=== PATIENT | male | born 1950 | race Hispanic/Latino ===

== ENCOUNTER 2018-02-04 10:48 | Inpatient (IN) | payer MEDICARE, MEDICAID ==
[2018-02-04 10:49] VITALS: BMI 31.6
[2018-02-04 11:37] LABS: BASO # 0.1 K/uL (0.0-0.2); BASO % 0.7 % (0.0-2.0); EOS # 0.3 K/uL (0.0-0.7); EOS % 2.6 % (0.0-4.0); HEMOGLOBIN 13.5 g/dL (12.0-18.0); LYMPH # 1.2 K/uL (1.0-4.3); LYMPH % 10.8 % (20.0-40.0); MEAN CELL VOLUME 90.1 fL (80.0-94.0); MEAN CORPUSCULAR HEMOGLOBIN 30.3 pg (27.0-31.0); MEAN CORPUSCULAR HGB CONC 33.6 g/dL (33.0-37.0); MEAN PLATELET VOLUME 9.6 fL (7.2-11.7); MONO # 0.7 K/uL (0.0-0.8); MONO % 6.1 % (0.0-10.0); NEUT # 8.9 K/uL (1.8-7.0); NEUT % 79.8 % (50.0-75.0); NRBC % 0.2 % (0.0-2.0); RBC 4.46 Mil/uL (4.40-5.90); RED CELL DISTRIBUTION WIDTH 13.9 % (11.5-14.5); WHITE BLOOD COUNT 11.1 K/uL (4.8-10.8)
[2018-02-04 11:45] LABS: INR 1.1; PROTHROMBIN TIME 11.6 SECONDS (9.7-12.2)
[2018-02-04 11:55] LABS: BLOOD UREA NITROGEN 53 mg/dL (9-20); GFR AFRICAN-AMERICAN > 60; GFR NON-AFRICAN AMERICAN 51
[2018-02-04 11:56] LABS: ALB/GLOB RATIO 1.1 (1.0-2.1); ALBUMIN 4.1 g/dL (3.5-5.0); ALT/SGPT 92 U/L (21-72); AST/SGOT 73 U/L (17-59); CALCIUM 9.6 mg/dl (8.6-10.4)
[2018-02-04] MEDS ORDERED: Sodium Chloride 0.9% 1,000 ML IV STA (11:56)
--- NOTE | 2018-02-04 11:57 | CT ---
PROCEDURE: CT HEAD WITHOUT CONTRAST. HISTORY: AMS/Confusion COMPARISON: None available. TECHNIQUE: Axial computed tomography images were obtained through the head/brain without intravenous contrast. Radiation dose: Total exam DLP = 1080.72 mGy-cm. This CT exam was performed using one or more of the following dose reduction techniques: Automated exposure control, adjustment of the mA and/or kV according to patient size, and/or use of iterative reconstruction technique. FINDINGS: HEMORRHAGE: No intracranial hemorrhage. BRAIN: Good corticomedullary differentiation is seen. Diffuse expansion of the ventriculosulcal and cisternal spaces is appreciated with white matter lucency compatible with diffuse cerebral atrophy and chronic microangiopathy. No suspicious extra-axial fluid collection is identified and the midline brain anatomy appears grossly nonfocal as imaged. There is no mass effect throughout. VENTRICLES: Unremarkable. No hydrocephalus. CALVARIUM: Unremarkable. PARANASAL SINUSES: Prominent right maxillary sinusitis. MASTOID AIR CELLS: Unremarkable as visualized. No inflammatory changes. OTHER FINDINGS: None. IMPRESSION: Mild age related neuro degenerative changes are identified without acute intracranial findings by standard CT criteria. Follow-up MRI may be performed if clinically warranted. Incidental prominent right maxillary sinus disease.
[2018-02-04] MEDS ORDERED: Sodium Chloride 0.9% 1,000 ML ONE ×2 (12:03→14:23)
[2018-02-04 12:12] LABS: FREE T4 1.18 ng/dL (0.78-2.19)
--- NOTE | 2018-02-04 12:52 | C.PDOC ---
Time Seen by Provider: 02/04/18 11:02 Chief Complaint (Nursing): Altered Mental Status History Per: Patient, Other (Landlord/friend) History/Exam Limitations: Clinical Condition Onset/Duration Of Symptoms: Days Onset Of Symptoms: Cannot Confirm Onset Current Symptoms Are (Timing): Worse Usual Baseline: Alert Oriented, Ambulatory Exacerbating Factor(s): Unknown Severity: Moderate Additional History Per: Prior Records Associated Symptoms: Disoriented, Confused Past Medical History Reviewed: Historical Data, Nursing Documentation, Vital Signs Vital Signs: Last Vital Signs Temp 97 F L 02/04/18 10:52 Pulse 78 02/04/18 10:52 Resp 18 02/04/18 10:52 BP 133/62 02/04/18 10:52 Pulse Ox 100 02/04/18 12:55 - Medical History PMH: Bipolar Disorder (?), Diabetes, HTN Surgical History: No Surg Hx - [facility] Procedures CLOSURE SKIN & SUBCUTANEOUS NEC (12/28/03) PSYCHIAT DRUG THERAP NEC (09/22/04) TETANUS TOXOID ADMINIST (12/28/03) Family History: States: Unknown Family Hx - Social History Hx Tobacco Use: No Hx Alcohol Use: No Hx Substance Use: No Review Of Systems Constitutional: Negative for: Fever Cardiovascular: Negative for: Chest Pain Respiratory: Negative for: Shortness of Breath Gastrointestinal: Negative for: Vomiting, Abdominal Pain Musculoskeletal: Positive for: Back Pain. Negative for: Neck Pain Skin: Negative for: Rash Neurological: Positive for: Confusion, Altered Mental Status Psych: Negative for: Suicidal ideation Physical Exam - Physical Exam Appears: Confused, Chronically Ill, Other (Tremulous) Skin: Normal Color, Warm, Dry Head: Atraumatic, Normacephalic Eye(s): bilateral: PERRL, EOMI Oral Mucosa: Dry Neck: Normal ROM, Supple Cardiovascular: Rhythm Regular Respiratory: Normal Breath Sounds, No Accessory Muscle Use Gastrointestinal/Abdominal: Soft, No Tenderness Back: No CVA Tenderness Extremity: Normal ROM, No Deformity Neurological/Psych: Slow To Respond With Command, Other (Moving all extremities , but tremulous) Disoriented To: Time ED Course And Treatment - Laboratory Results Result Diagrams: 02/04/18 11:33 02/04/18 11:33 Lab Interpretation: Abnormal Interpretation Of Abnormal: Elevated BUN ECG: Interpreted By Me, Viewed By Me ECG Rhythm: Sinus Rhythm ECG Interpretation: No Acute Changes Rate From EC O2 Sat by Pulse Oximetry: 100 Pulse Ox Interpretation: Normal - Radiology CXR: Interpreted by Me, Viewed By Me CXR Interpretation: Yes: No Acute Disease - CT Scan/US CT head Other Rad Studies (CT/US): Read By Radiologist, Radiology Report Reviewed CT/US Interpretation: IMPRESSION: Mild age related neuro degenerative changes are identified without acute intracranial findings by standard CT criteria. Follow-up MRI may be performed if clinically warranted. Incidental prominent right maxillary sinus disease. Progress - Interventions Interventions:: Observation, Intravenous fluid - Data Reviewed Data Reviewed: Lab, Diagnostic imaging, EKG, Old records - Patient Status Patient status: Partially improved - Continuity of Care Discussed patient case with:: Patient, ED Nurse, On-call PMD-pt unassigned - Patient Plan Patient Plan: Admission Disposition Discussed With : Daniela Arellano Comment: She accepted pt on hospitalist service. Doctor Will See Patient In The: Hospital Counseled Patient/Family Regarding: Studies Performed, Diagnosis - Disposition Disposition: HOSPITALIZED Disposition Time: 14:10 Condition: GUARDED - Clinical Impression Clinical Impression: Change in mental status
--- NOTE | 2018-02-04 12:59 | RAD ---
HISTORY: AMS/Confusion COMPARISON: No prior. FINDINGS: LUNGS: No active pulmonary disease. PLEURA: No significant pleural effusion identified, no pneumothorax apparent. CARDIOVASCULAR: Normal. OSSEOUS STRUCTURES: No significant abnormalities. VISUALIZED UPPER ABDOMEN: Normal. OTHER FINDINGS: None. IMPRESSION: No active disease.
[2018-02-04 13:00] LABS: SQUAMOUS EPITHIAL < 1 /hpf (0-5); URINE BILIRUBIN NEGATIVE (NEGATIVE); URINE BLOOD NEGATIVE (NEGATIVE); URINE CLARITY Clear (Clear); URINE COLOR Straw (YELLOW); URINE GLUCOSE (UA) NORMAL (Normal); URINE LEUKOCYTE ESTERASE NEG Leu/uL (Negative); URINE PROTEIN NEGATIVE (NEGATIVE); URINE UROBILINOGEN NORMAL mg/dL (0.2-1.0)
[2018-02-04 13:36] LABS: BARBITURATES, UR NEGATIVE (NEGATIVE); OPIATES, UR NEGATIVE (NEGATIVE); PHENCYCLIDINE, UR NEGATIVE (NEGATIVE)
[2018-02-04 13:43] LABS: BENZODIAZEPINES, UR POSITIVE (NEGATIVE)
[2018-02-04] MEDS ORDERED: Sodium Chloride 0.9% 1,000 ML IV ONE (13:55)
[2018-02-04] MEDS ORDERED: Sod Polystyrene Sulf 15 gm/60 ml Susp PO ONE (15:07)
[2018-02-04] MEDS ORDERED: Sodium Chloride 0.9% 1,000 ML IV SCH (15:15)
--- NOTE | 2018-02-04 15:44 | CP.PCM.HP ---
<Leonardo Gillette - Last Filed: 02/04/18 15:54> History of Present Illness - History of Present Illness History of Present Illness: This is a 67 yo male with history of bipolar disorder, DM, HTN, paranoid behavior presenting to [facility] [place] [facility] today with altered mental status. Pt was brought in by his landlord who saw him acting strangely. Pt has been falling at home and has been unable to cook for himself. Pt is poor historian and is unable to provide detailed answers to questions. Pt also has long standing tremor. He takes lithium but cannot say how much or last time refilled. He denies pain, fevers, chills, vomiting, diarrhea. He reports past hx of alcoholism but says his last drink was 10 years ago. He denies drug use. PMH: stated above PSH: denies Allergies: PCN FH: bipolar in family Home meds: glipizide, metformin, lithium, clonazepam, norvasc, lisinopril Social hx: denies smoking. past hx of alcohol abuse. denies drug use. lives alone with dog. no children. Present on Admission - Present on Admission Any Indicators Present on Admission: No History of DVT/PE: No History of Uncontrolled Diabetes: No Urinary Catheter: No Decubitus Ulcer Present: No Review of Systems - Review of Systems All systems: reviewed and no additional remarkable complaints except Review of Systems: negative except per hpi. Past Patient History - Infectious Disease Hx of Infectious Diseases: None - Tetanus Immunizations Tetanus Immunization: Unknown - Past Medical History & Family History Pertinent Family History: bipolar in family - Past Social History Smoking Status: Never Smoked Chewing Tobacco Use: No Cigar Use: No Alcohol: None Drugs: Denies Home Situation {Lives}: Alone Domestic Violence: Negative - CARDIAC Hx Hypertension: Yes - PSYCHIATRIC Hx Bipolar Disorder: Yes (?) Hx Substance Use: No - SURGICAL HISTORY Hx Surgeries: No Meds Allergies/Adverse Reactions: Allergies Allergy/AdvReac Type Severity Reaction Status Date / Time Penicillins Allergy Verified 02/04/18 10:57 Physical Exam - Constitutional Appears: Confused - Head Exam Head Exam: ATRAUMATIC, NORMAL INSPECTION, NORMOCEPHALIC - Eye Exam Eye Exam: EOMI - ENT Exam ENT Exam: Mucous Membranes Dry - Neck Exam Neck exam: Positive for: Full Rom, Normal Inspection - Respiratory Exam Respiratory Exam: NORMAL BREATHING PATTERN. absent: Respiratory Distress - Cardiovascular Exam Cardiovascular Exam: +S1, +S2 - GI/Abdominal Exam GI & Abdominal Exam: Normal Bowel Sounds, Soft. absent: Tenderness - Extremities Exam Extremities exam: Positive for: full ROM, normal inspection - Neurological Exam Neurological exam: Alert, CN II-XII Intact - Psychiatric Exam Psychiatric exam: Flat Affect - Skin Skin Exam: Dry, Intact, Normal Color, Warm Results - Vital Signs Recent Vital Signs: Last Vital Signs Temp 97.8 F 02/04/18 14:30 Pulse 70 02/04/18 14:30 Resp 18 02/04/18 14:30 BP 128/65 02/04/18 14:30 Pulse Ox 99 02/04/18 14:30 - Labs Result Diagrams: 02/04/18 11:33 02/04/18 11:33 Labs: Laboratory Results - last 24 hr 02/04/18 02/04/18 02/04/18 11:33 11:33 11:33 WBC 11.1 H RBC 4.46 Hgb 13.5 Hct 40.2 MCV 90.1 MCH 30.3 MCHC 33.6 RDW 13.9 Plt Count 197 MPV 9.6 Neut % (Auto) 79.8 H Lymph % (Auto) 10.8 L [place] % (Auto) 6.1 Eos % (Auto) 2.6 Baso % (Auto) 0.7 Neut # (Auto) 8.9 H Lymph # (Auto) 1.2 [place] # (Auto) 0.7 Eos # (Auto) 0.3 Baso # (Auto) 0.1 PT 11.6 INR 1.1 APTT 35 H Sodium 145 Potassium 5.3 H Chloride 113 H Carbon Dioxide 18 L Anion Gap 19 BUN 53 H Creatinine 1.4 Est GFR ( Amer) > 60 Est GFR (Non-Af Amer) 51 Random Glucose 111 H Calcium 9.6 Magnesium 2.9 H Total Bilirubin 0.9 AST 73 H ALT 92 H Alkaline Phosphatase 257 H Ammonia Troponin I < 0.0120 Total Protein 8.0 Albumin 4.1 Globulin 3.9 Albumin/Globulin Ratio 1.1 Free T4 TSH 3rd Generation Urine Color Urine Clarity Urine pH Ur Specific [place] Urine Protein Urine Glucose (UA) Urine Ketones Urine Blood Urine Nitrate Urine Bilirubin Urine Urobilinogen Ur Leukocyte Esterase Urine WBC (Auto) Ur Squamous Epith Cells Urine Opiates Screen Urine Methadone Screen Ur Barbiturates Screen Ur Phencyclidine Scrn Ur Amphetamines Screen U Benzodiazepines Scrn U Oth Cocaine Metabols U Cannabinoids Screen Alcohol, Quantitative < 10 02/04/18 02/04/18 02/04/18 11:33 11:34 12:40 WBC RBC Hgb Hct MCV MCH MCHC RDW Plt Count MPV Neut % (Auto) Lymph % (Auto) [place] % (Auto) Eos % (Auto) Baso % (Auto) Neut # (Auto) Lymph # (Auto) [place] # (Auto) Eos # (Auto) Baso # (Auto) PT INR APTT Sodium Potassium Chloride Carbon Dioxide Anion Gap BUN Creatinine Est GFR ( Amer) Est GFR (Non-Af Amer) Random Glucose Calcium Magnesium Total Bilirubin AST ALT Alkaline Phosphatase Ammonia 19 Troponin I Total Protein Albumin Globulin Albumin/Globulin Ratio Free T4 1.18 TSH 3rd Generation 0.37 L Urine Color Straw Urine Clarity Clear Urine pH 6.0 Ur Specific [place] 1.011 Urine Protein Negative Urine Glucose (UA) Normal Urine Ketones Negative Urine Blood Negative Urine Nitrate Negative Urine Bilirubin Negative Urine Urobilinogen Normal Ur Leukocyte Esterase Neg Urine WBC (Auto) 2 Ur Squamous Epith Cells < 1 Urine Opiates Screen Urine Methadone Screen Ur Barbiturates Screen Ur Phencyclidine Scrn Ur Amphetamines Screen U Benzodiazepines Scrn U Oth Cocaine Metabols U Cannabinoids Screen Alcohol, Quantitative 02/04/18 12:40 WBC RBC Hgb Hct MCV MCH MCHC RDW Plt Count MPV Neut % (Auto) Lymph % (Auto) [place] % (Auto) Eos % (Auto) Baso % (Auto) Neut # (Auto) Lymph # (Auto) [place] # (Auto) Eos # (Auto) Baso # (Auto) PT INR APTT Sodium Potassium Chloride Carbon Dioxide Anion Gap BUN Creatinine Est GFR ( Amer) Est GFR (Non-Af Amer) Random Glucose Calcium Magnesium Total Bilirubin AST ALT Alkaline Phosphatase Ammonia Troponin I Total Protein Albumin Globulin Albumin/Globulin Ratio Free T4 TSH 3rd Generation Urine Color Urine Clarity Urine pH Ur Specific [place] Urine Protein Urine Glucose (UA) Urine Ketones Urine Blood Urine Nitrate Urine Bilirubin Urine Urobilinogen Ur Leukocyte Esterase Urine WBC (Auto) Ur Squamous Epith Cells Urine Opiates Screen Negative Urine Methadone Screen Negative Ur Barbiturates Screen Negative Ur Phencyclidine Scrn Negative Ur Amphetamines Screen Negative U Benzodiazepines Scrn Positive U Oth Cocaine Metabols Negative U Cannabinoids Screen Negative Alcohol, Quantitative Assessment & Plan - Assessment and Plan (Free Text) Assessment: This is a 67 yo male with 1. Altered mental status -urine drug screen positive for benzos -alcohol level negative -lithium level pending -EKG: no acute changes -CXR shows some mild cardiomegaly -neuro consult. Dr. Salvador. cricket appreciated -head CT : no acute changes -psych consult. Dr. Jamil. harley appreciated. -fall precautions 2. Hx of bipolar -restart abilify 10 mg daily -psych consult as above -hold benzo -hold lithium 2.5 diarrhea -stool culture -stool occult blood -fecal leukocytes -stool c diff 3. Hx of HTN -continue home lisinopril -continue home norvasc 4. hx of DM -ISS -accucheck -hypoglycemia protocol -hold gabapentin: Unsteady gait/falls? 5. GI/DVT ppx -lovenox 40 daily sc -protonix PO 40 mg daily discussed with Dr. Gerardo <Leela Gerardo - Last Filed: 02/05/18 16:57> Results - Vital Signs Recent Vital Signs: Last Vital Signs Temp 98.6 F 02/05/18 07:25 Pulse 74 02/05/18 16:20 Resp 20 02/05/18 07:25 BP 136/64 02/05/18 10:32 Pulse Ox 97 02/05/18 07:25 - Labs Result Diagrams: 02/05/18 07:22 02/05/18 07:22 Labs: Laboratory Results - last 24 hr 02/04/18 02/04/18 02/04/18 10:56 17:13 21:17 WBC RBC Hgb Hct MCV MCH MCHC RDW Plt Count MPV Neut % (Auto) Lymph % (Auto) [place] % (Auto) Eos % (Auto) Baso % (Auto) Neut # (Auto) Lymph # (Auto) [place] # (Auto) Eos # (Auto) Baso # (Auto) Sodium Potassium Chloride Carbon Dioxide Anion Gap BUN Creatinine Est GFR ( Amer) Est GFR (Non-Af Amer) POC Glucose (mg/dL) 179 H 76 112 H Random Glucose Hemoglobin A1c Calcium Magnesium Total Bilirubin AST ALT Alkaline Phosphatase Total Protein Albumin Globulin Albumin/Globulin Ratio [place] Hepatitis A IgM Ab Hep Bs Antigen Hep B Core IgM Ab Hepatitis C Antibody 02/05/18 02/05/18 02/05/18 06:28 07:22 07:22 WBC 8.6 RBC 4.11 L Hgb 12.5 Hct 37.0 MCV 90.1 MCH 30.4 MCHC 33.7 RDW 13.5 Plt Count 185 MPV 8.9 Neut % (Auto) 71.8 Lymph % (Auto) 15.5 L [place] % (Auto) 9.5 Eos % (Auto) 2.6 Baso % (Auto) 0.6 Neut # (Auto) 6.2 Lymph # (Auto) 1.3 [place] # (Auto) 0.8 Eos # (Auto) 0.2 Baso # (Auto) 0.0 Sodium Potassium Chloride Carbon Dioxide Anion Gap BUN Creatinine Est GFR ( Amer) Est GFR (Non-Af Amer) POC Glucose (mg/dL) 109 Random Glucose Hemoglobin A1c 6.6 H Calcium Magnesium Total Bilirubin AST ALT Alkaline Phosphatase Total Protein Albumin Globulin Albumin/Globulin Ratio [place] Hepatitis A IgM Ab Hep Bs Antigen Hep B Core IgM Ab Hepatitis C Antibody 02/05/18 02/05/18 02/05/18 07:22 07:22 07:22 WBC RBC Hgb Hct MCV MCH MCHC RDW Plt Count MPV Neut % (Auto) Lymph % (Auto) [place] % (Auto) Eos % (Auto) Baso % (Auto) Neut # (Auto) Lymph # (Auto) [place] # (Auto) Eos # (Auto) Baso # (Auto) Sodium 149 H Potassium 5.2 Chloride 118 H Carbon Dioxide 22 Anion Gap 15 BUN 28 H Creatinine 1.2 Est GFR ( Amer) > 60 Est GFR (Non-Af Amer) > 60 POC Glucose (mg/dL) Random Glucose 112 H Hemoglobin A1c Calcium 9.2 Magnesium 2.8 H Total Bilirubin 0.5 AST 80 H ALT 87 H Alkaline Phosphatase 278 H Total Protein 7.5 Albumin 3.9 Globulin 3.6 Albumin/Globulin Ratio 1.1 [place] 2.1 H* Hepatitis A IgM Ab Negative Hep Bs Antigen Negative Hep B Core IgM Ab Negative Hepatitis C Antibody Negative 02/05/18 12:26 WBC RBC Hgb Hct MCV MCH MCHC RDW Plt Count MPV Neut % (Auto) Lymph % (Auto) [place] % (Auto) Eos % (Auto) Baso % (Auto) Neut # (Auto) Lymph # (Auto) [place] # (Auto) Eos # (Auto) Baso # (Auto) Sodium Potassium Chloride Carbon Dioxide Anion Gap BUN Creatinine Est GFR ( Amer) Est GFR (Non-Af Amer) POC Glucose (mg/dL) 102 Random Glucose Hemoglobin A1c Calcium Magnesium Total Bilirubin AST ALT Alkaline Phosphatase Total Protein Albumin Globulin Albumin/Globulin Ratio [place] Hepatitis A IgM Ab Hep Bs Antigen Hep B Core IgM Ab Hepatitis C Antibody Attending/Attestation - Attestation I have personally seen and examined this patient.: Yes I have fully participated in the care of the patient.: Yes I have reviewed all pertinent clinical information: Yes Notes (Text): This is a 67 years old male with 40years history of bipolar disorder on [place] was brought in for nage in mental status by his land physician neonatology. Patient was alert and oriented on admission with tremor. He was able to answer basic questions. He knows he is at [facility],he knows that he was bebo by his land physician neonatology because he was not doing well. He was Joking that this year is Trump . Not able to tell the year.He states that he was not able to shop and cook last few days due to weakness. He was suffering from tremor and diarrhea. He gave his pharmacy phone number and told us he takes meds including [place].Denies taking overdose of lithium. He was on it for bout 40years.He stated that his lithium dose was increased a week ago.He told us that he didn't take his [place] this morning. He lives alone.no children. Doesn't talk to his family.Used to drive taxi in the past. His changed his psychiatrist,doesn't remember his name. 1. [place] toxicity (Denies overdose) 2.Bipolar disorder 3.Unsteady gait and tremor CT Brain negative,likely due to [place] toxicity 4.DM 5.HTN Medication list obtained from his pharmacy d/w Dr Hancock about the lithium level repeat [place] level in the morning,hydrate,continue home meds except lithium psychiatry consult PT eval We will cancel neuro consult
[2018-02-04] MEDS: Sodium Chloride 0.9% 1,000 ML IV SCH ×2 (17:17→23:02)
[2018-02-04] MEDS: (Novolin R) Insulin Human Regular 100 units/ml vial SC SCH ×2 (17:17→21:41)
[2018-02-05] MEDS: Sodium Chloride 0.9% 1,000 ML IV SCH ×2 (04:21→05:40)
[2018-02-05 07:39] LABS: BASO % 0.6 % (0.0-2.0); EOS # 0.2 K/uL (0.0-0.7); EOS % 2.6 % (0.0-4.0); HEMOGLOBIN 12.5 g/dL (12.0-18.0); LYMPH # 1.3 K/uL (1.0-4.3); LYMPH % 15.5 % (20.0-40.0); MEAN CELL VOLUME 90.1 fL (80.0-94.0); MEAN CORPUSCULAR HEMOGLOBIN 30.4 pg (27.0-31.0); MEAN CORPUSCULAR HGB CONC 33.7 g/dL (33.0-37.0); MEAN PLATELET VOLUME 8.9 fL (7.2-11.7); MONO # 0.8 K/uL (0.0-0.8); MONO % 9.5 % (0.0-10.0); NEUT # 6.2 K/uL (1.8-7.0); NEUT % 71.8 % (50.0-75.0); RBC 4.11 Mil/uL (4.40-5.90); RED CELL DISTRIBUTION WIDTH 13.5 % (11.5-14.5); WHITE BLOOD COUNT 8.6 K/uL (4.8-10.8)
[2018-02-05] MEDS: (Novolin R) Insulin Human Regular 100 units/ml vial SC SCH ×4 (08:07→21:38)
[2018-02-05 08:16] LABS: ALB/GLOB RATIO 1.1 (1.0-2.1); ALBUMIN 3.9 g/dL (3.5-5.0); ALT/SGPT 87 U/L (21-72); AST/SGOT 80 U/L (17-59); BLOOD UREA NITROGEN 28 mg/dL (9-20); CALCIUM 9.2 mg/dl (8.6-10.4); GFR AFRICAN-AMERICAN > 60; GFR NON-AFRICAN AMERICAN > 60
[2018-02-05 08:23] LABS: HEPATITIS B SURFACE AG Negative (NEGATIVE)
[2018-02-05 08:29] LABS: HEPATITIS A IGM NEGATIVE (NEGATIVE); HEPATITIS B CORE AB NEGATIVE (NEGATIVE)
[2018-02-05 08:41] LABS: HEPATITIS C ANTIBODY NEGATIVE (NEGATIVE)
--- NOTE | 2018-02-05 08:46 | CP.PCM.PN ---
Addendum entered and electronically signed by Alia Choi DO 02/05/18 16:56: addendum. patient has a flat affect and is delayed with answering questions Original Note: <Alia Choi - Last Filed: 02/05/18 16:31> Subjective - Date & Time of Evaluation Date of Evaluation: 02/05/18 Time of Evaluation: 08:44 - Subjective Subjective: Progress Note for Dr. Taylor Patient seen and examined at bedside. Patient attempted to answer questions by attending Patient states that he lives alone and that he does not have family that visits him. He said his landlord knows the most about him. Patient is unable to state month, day, year. Patient knows that he's at [facility] and states that he feels a little less confused than yesterday. Patient had a mild tremor at rest noted on lower extremities, but patient states it is chronic. Patient denies headache, fever, chills, dizziness. Patient states he feels a little confused at the moment. He said he's had difficulty walking for many years, but is unable to fully answer questions due to confusion. Objective - Vital Signs/Intake and Output Vital Signs (last 24 hours): Temp Pulse Resp BP Pulse Ox 98.6 F 66 20 137/79 97 02/05/18 07:25 02/05/18 07:25 02/05/18 07:25 02/05/18 07:25 02/05/18 07:25 Intake and Output: 02/05/18 02/05/18 06:59 18:59 Intake Total 1400 Balance 1400 - Medications Medications: Current Medications Amlodipine Besylate (Norvasc) 10 mg PO DAILY [facility] Enoxaparin Sodium (Lovenox) 40 mg SC DAILY [facility] Sodium Chloride (Sodium Chloride 0.9%) 1,000 mls @ 150 mls/hr IV .Q6H40M [facility] Last Admin: 02/05/18 05:40 Dose: Not Given Insulin Human Regular (Novolin R) 0 unit SC ACHS [facility] PRN Reason: Protocol Last Admin: 02/05/18 08:07 Dose: Not Given Pantoprazole Sodium (Protonix Ec Tab) 40 mg PO DAILY [facility] - Labs Labs: 02/05/18 07:22 02/05/18 07:22 PT 11.6 SECONDS (9.7-12.2) 02/04/18 11:33 INR 1.1 02/04/18 11:33 APTT 35 SECONDS (21-34) H 02/04/18 11:33 - Head Exam Head Exam: ATRAUMATIC, NORMAL INSPECTION, NORMOCEPHALIC - Eye Exam Eye Exam: EOMI, Normal appearance Pupil Exam: NORMAL ACCOMODATION - ENT Exam ENT Exam: Mucous Membranes Moist, Normal Exam - Neck Exam Neck Exam: Full ROM. absent: Tenderness, Thyromegaly - Respiratory Exam Respiratory Exam: Clear to Ausculation Bilateral, NORMAL BREATHING PATTERN. absent: Accessory Muscle Use, Chest Wall Tenderness - Cardiovascular Exam Cardiovascular Exam: REGULAR RHYTHM, +S1, +S2, Murmur. absent: Bradycardia, Tachycardia - GI/Abdominal Exam GI & Abdominal Exam: Soft, Normal Bowel Sounds. absent: Guarding, Tenderness - Extremities Exam Extremities Exam: Full ROM. absent: Pedal Edema Additional comments: Patient has resting tremor noted on extremities with prominent tremor noted on left upper extremity - Neurological Exam Neurological Exam: Awake, CN II-XII Intact. absent: Oriented x3 - Psychiatric Exam Psychiatric exam: Normal Affect, Normal Mood - Skin Skin Exam: Dry, Intact, Normal Color, Warm Assessment and Plan - Assessment and Plan (Free Text) Assessment: This is a 67 yo male with pmh bipolar disorder, htn, dm, presents with with AMS and gait changes 1. Altered mental status -urine drug screen positive for benzos -alcohol level negative -lithium level 2.6 to 2.1. continue to monitor -EKG: no acute changes -CXR shows some mild cardiomegaly -echo: Normal study LVEF 75%, left ventricular diastolic function, left ventricular ejection fraction -neuro consult. Dr. Salvador -head CT : no acute changes -psych consult. Dr. John. recs appreciated. -fall precautions 2. Hx of bipolar -restart abilify 10 mg daily -psych consult as above -hold benzo -hold lithium -montor vitals 3. Diarrhea -f/u stool culture -f/u stool occult blood -f/u fecal leukocytes -f/u stool c diff 4. Hx of HTN -continue home lisinopril -continue home Norvasc 4. hx of DM -ISS -accucheck -hypoglycemia protocol -hold gabapentin 5. GI/DVT ppx -lovenox 40 daily sc -protonix PO 40 mg daily discussed with Dr. Chacho Choi DO PGY1 <Chacho Taylor J - Last Filed: 02/05/18 20:13> Objective - Vital Signs/Intake and Output Vital Signs (last 24 hours): Temp Pulse Resp BP Pulse Ox 98 F 74 20 122/63 99 02/05/18 15:30 02/05/18 16:20 02/05/18 15:30 02/05/18 15:30 02/05/18 15:30 Intake and Output: 02/05/18 02/06/18 18:59 06:59 Intake Total 1350 Balance 1350 - Medications Medications: Current Medications Amlodipine Besylate (Norvasc) 10 mg PO DAILY [facility] Last Admin: 02/05/18 10:33 Dose: 10 mg Enoxaparin Sodium (Lovenox) 40 mg SC DAILY [facility] Last Admin: 02/05/18 10:32 Dose: 40 mg Sodium Chloride (Sodium Chloride 0.45%) 1,000 mls @ 150 mls/hr IV .Q6H40M [facility] Last Admin: 02/05/18 18:42 Dose: Not Given Insulin Human Regular (Novolin R) 0 unit SC ACHS [facility] PRN Reason: Protocol Last Admin: 02/05/18 17:00 Dose: Not Given Pantoprazole Sodium (Protonix Ec Tab) 40 mg PO DAILY [facility] Last Admin: 02/05/18 10:33 Dose: 40 mg - Labs Labs: 02/05/18 07:22 02/05/18 16:48 PT 11.6 SECONDS (9.7-12.2) 02/04/18 11:33 INR 1.1 02/04/18 11:33 APTT 35 SECONDS (21-34) H 02/04/18 11:33 Attending/Attestation - Attestation I have personally seen and examined this patient.: Yes I have fully participated in the care of the patient.: Yes I have reviewed all pertinent clinical information, including history, physical exam and plan: Yes Notes (Text): 02/05/18 20:08 Patient was seen and examined shortly after resident. Exam, assessment and plan were gone over with the resident. Also on ROS: Stated that he did not eat but RADIOLOGIC TECHNOLOGY PROGRAM DIRECTOR stated that she witnessed him doing so Answers NO to FULL ROS Also on Exam: Flat effect Unable to provide day date or year and these were provided to him for him to remember Resting tremor was noted most pronounced on the Left UE Central obesity therefore liver and spleen could not be palpated Systolic Ejection Murmur left lower sternal border -[place] Toxicity Likely cause of his AMS Continue IVF at 1/2 NS at 150 ml/hour F/U [place] level 02/06/18 -Abnormal Gait PT is working with patient and we will follow up their recommendations Chacho Taylor D.O.
[2018-02-05] MEDS: Enoxaparin 40 mg Syringe SC SCH (10:32)
[2018-02-05] MEDS: Pantoprazole 40 mg EC Tab PO SCH (10:33)
[2018-02-05] MEDS ORDERED: Sodium Chloride 0.45% 1,000 ML IV SCH (10:45)
--- NOTE | 2018-02-05 11:55 | CARD ---
APPROVED REPORT EXAM: Two-dimensional and M-mode echocardiogram with Doppler and color Doppler. INDICATION Cardiomegaly RISK FACTORS Hypertension Diabetes 2D DIMENSIONS IVSd1.0 (0.7-1.1cm)LVDd5.9 (3.9-5.9cm) PWd0.9 (0.7-1.1cm)LVDs3.1 (2.5-4.0cm) FS (%) 47.2 %LVEF (%)70.0 (>50%) M-Mode DIMENSIONS Left Atrium (MM)3.65 (2.5-4.0cm)Aortic Root3.85 (2.2-3.7cm) Aortic Cusp Exc.2.53 (1.5-2.0cm) Mitral Valve MV E Qxnwxcbu95.4cm/sMV A Jgcmfkzk71.8cm/sE/A ratio0.9 TDI E/Lateral E'0.0E/Medial E'0.0 Tricuspid Valve TR Peak [id number]/sTR Peak Gr.[id number] LEFT VENTRICLE The left ventricle is normal size. There is normal left ventricular wall thickness. The left ventricular function is normal. The left ventricular ejection fraction is within the normal range. There is normal LV segmental wall motion. The left ventricular diastolic function is normal. No left ventricle thrombus noted on this study. There is no ventricular septal defect visualized. There is no left ventricular aneurysm. There is no mass noted in the left ventricle. RIGHT VENTRICLE The right ventricle is normal size. There is normal right ventricular wall thickness. The right ventricular systolic function is normal. ATRIA The left atrium size is normal. The right atrium size is normal. The interatrial septum is intact with no evidence for an atrial septal defect. AORTIC VALVE The aortic valve is normal in structure. No aortic regurgitation is present. There is no aortic valvular stenosis. There is no aortic valvular vegetation. MITRAL VALVE The mitral valve is normal in structure. There is no mitral valve stenosis. There is no mitral valve regurgitation noted. TRICUSPID VALVE The tricuspid valve is normal in structure. There is no tricuspid valve regurgitation noted. PULMONIC VALVE The pulmonary valve is normal in structure. There is no pulmonic valvular regurgitation. GREAT VESSELS The aortic root is normal in size. The ascending aorta is normal in size. The pulmonary artery is normal. The IVC is normal in size and collapses >50% with inspiration. PERICARDIAL EFFUSION There is no pericardial effusion. <Conclusion> The left ventricular function is normal. The left ventricular ejection fraction is within the normal range. The left ventricular diastolic function is normal. NORMAL STUDY. LVEF IS 75%.
--- NOTE | 2018-02-05 12:32 | CARD ---
APPROVED REPORT EKG Measurement Heart [id number] <Conclusion> Normal sinus rhythm Normal ECG
[2018-02-05] MEDS: Sodium Chloride 0.45% 1,000 ML IV SCH ×2 (12:55→18:42)
--- NOTE | 2018-02-05 14:23 | PCM.PSYCH ---
Initial Psychiatric Evaluation - Initial Psychiatric Evaluation Type of Admission: Voluntary Legal Status: Capacity Chief Complaint (in patient's own words): CC: I'm having shakes Patient's Reaction to Hospitalization: Consult was requested for his psychiatric condition. HPI: 67 year old male with PMHx of bipolar disorder, DM, and HTN admitted yesterday 02/04 for altered mental status and Jacinto toxicity, brought in by his landlord who noticed he was acting strangely. Psychiatry consulted for management of bipolar disorder. Patient is a poor historian and unable to provide detailed responses to questions. Patient states that he has been taking lithium for 40 years for bipolar disorder, on 600 mg daily. He had recently changed psychiatrists, and his newest one whom he does not recall the name of, switched him from lithium to Abilify 1 week ago at his third visit. Two days later, patient felt he needed to get back on lithium so he called his pharmacy in [place] to ask for dosing. As per patient, he was told by the pharmacy to take 900 mg lithium daily, so he has been taking that amount for the past 5 days. He complains of anxiety, diarrhea x2 episodes daily, urinary frequency, and generalized tremors for the past 5 days. Denies fever, chills, nausea, vomiting, chest pain, SOB, headache, vision changes, depression, hallucinations, suicidal ideation. PMHx: bipolar disorder (40 years), DM, HTN Psych Hx: hospital admission for bipolar disorder 10 years ago Allergies: haloperidol, penicillin Social Hx: lives alone with landlord as per patient; denies tobacco/alcohol/ drug use; former otr tanker truck driver, retired Current Medications: Active Medications Generic Name Dose Route Start Last Admin Trade Name Chance PRN Reason Stop Dose Admin Amlodipine Besylate 10 mg 02/05/18 10:00 02/05/18 10:33 Norvasc PO 10 mg DAILY NORRIS Administration Enoxaparin Sodium 40 mg 02/05/18 10:00 02/05/18 10:32 Lovenox SC 40 mg DAILY NORRIS Administration Sodium Chloride 1,000 mls @ 150 mls/hr 02/05/18 12:43 02/05/18 12:55 Sodium Chloride 0.45% IV 150 mls/hr .Q6H40M NORRIS Administration Insulin Human Regular 0 unit 02/04/18 16:30 02/05/18 12:30 Novolin R SC Not Given ACHS NORRIS Protocol Pantoprazole Sodium 40 mg 02/05/18 10:00 02/05/18 10:33 Protonix Ec Tab PO 40 mg DAILY NORRIS Administration Past Psychiatric History - Past Psychiatric History Previous Treatment History: Inpatient Pertinent Medical Hx (Current Medical&Sleep Prob, Allergies): Allergies Allergy/AdvReac Type Severity Reaction Status Date / Time Penicillins Allergy Verified 02/04/18 10:57 ARIPiprazole [Abilify] 10 PO DAILY 02/04/18 Glipizide [Glucotrol] 10 mg PO BID 02/04/18 Lisinopril [Prinivil] 20 mg PO DAILY 02/04/18 Jacinto Carbonate [Jacinto Carbonate 300MG] 300 PO BID 02/04/18 MetFORMIN [glucoPHAGE] 1,000 PO BID 02/04/18 amLODIPine [Norvasc] 10 PO DAILY 02/04/18 Review of Systems - Psychiatric Psychiatric: Abnormal Sleep Pattern, Anxiety. absent: Depression, Hallucinations, Homicidal Ideation, Irritability, Suicidal Ideation Additional comments: unable to obtain full ROS due to patient being a poor historian Mental Status Examination - Personal Presentation Personal Presentation: Looks older than stated age (odd-looking, unkempt) - Affect Affect: Flat - Motor Activity Motor Activity: Psychomotor Retardation - Reliability in Providing Information Reliability in Providing Information: Poor, due to altered mood - Speech Speech: Relevant - Mood Mood: Anxious - Formal Thought Process Formal Thought Process: No Impairment - Cognitive Functions Orientation: Person, Place, Situation Sensorium: Drowsy Attention/Concentration: Easily distracted Estimate of Intelligence: Average Judgement: Intact, as evidence by: Insight regarding need for hospitalization Memory: Recent impaired, as evidence by: Inability to recall events of the day, Remote impaired as evidenced by: Inability to recall sig life events - Risk Risk: Diminished functioning - Strength & Assets Inventory Strength & Assets Inventory: Cooperative - Limitations Limitations: Living alone DSM 5 DX - DSM 5 DSM 5 Diagnosis: Bipolar disorder I - severe - Recommended/Plan of Treatment Treatment Recommendations and Plan of Treatment: Bipolar disorder I - severe -Support and psychoed provided -No meds for now, until he is cleared -Consider seroquel or other alternatives until he sees his psychiatrist Jacinto toxicity -Li level 2.6 on 02/04 (Cr 1.4), 2.1 on 02/05 (Cr 1.2) -Continue monitoring 32 min
--- NOTE | 2018-02-05 16:10 | CP.PCM.CON ---
History of Present Illness - History of Present Illness History of Present Illness: Nephrology Consultation Note: Assessment: Stable Acute Kidney Injury (N17.9) likely due to pre-renal state elevated Li level Hypernatremia dehydration DM/HTN/bipolar disorder, obesity Plan No acute need for renal replacement therapy at this time. Hypertension control with meds as ordered. 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 Avoid fleets enema/magnesium based laxatives. Avoid nephrotoxins/NSAIDs/ iodinated contrast (unless needed emergently) Glycemic control Further work up/management as per primary team Thanks for allowing me to participate in care of your patient. Will follow patient with you. Please call if any Qs. d/w team Dr Glynn Hancock Office: [phone] Chief Complaint; tremors Reason for consultation acute kidney injury and elevated lithium level HPI: Pt is a 67 M with hx of diabetes Mellitus ( years), hypertension (years) Bipolar disorder on lithium for 40 years presented with complaints of Tremors and shakiness and unsteady gait. He also reports loose stools last few days approximately 5 days. Denies any kidney disease in the past denies any urinary complaint Denies OTC/herbal meds or NSAIDs No recent iodinated contrast exposure. No obvious episodes of low BP. ROS: Cardiovascular: No chest pain. Pulmonary: No shortness of breath Gastrointestinal: denies abdominal pain No nausea. No vomiting. Genitourinary: No pain while urinating. Denies blood in urine. All other negative except as mentioned in HPI Physical Examination: General Appearance: Comfortable, in no acute respiratory distress, co-operative . Ill-appearing and tremulous Vitals reviewed and noted as below Head; Atraumatic, normocephalic ENT: no ulcers no thrush. Tongue is midline. Oropharynx: no rash or ulcers. EYES: Pupils are equal, round and reactive to light accommodation. Eye muscles and extraocular movement intact. Sclera is anicteric. Neck; supple no lymphadenopathy, no thyromegaly or bruit Lungs: Normal respiratory rate/effort. Breath sounds bilateral equal and clear Heart: Normal rate. s1s2 normal. No rub or gallop. Extremities: no edema. No varicose veins Neurological: Patient is alert, awake and oriented to person, place and time. No focal deficit. Strength bilateral appropriate and equal. Shakiness and tremulousness noted Skin: Warm and dry. Normal turgor. No rash. Palpitation: Normal elasticity for age Abdomen: Abdomen is soft. Bowel sounds +. There is no abdominal tenderness, no guarding/rigidity no organomegaly Psych: normal insight and flat affect/mood MSK: no joint tenderness or swelling. Digits and nails normal, no deformity : kidney or bladder not palpable Labs/imaging reviewed. Past medical history, past surgical history, family history, social history, allergy reviewed and noted as below Family hx: no hx of CKD. Rest non-contributory Past Patient History - Infectious Disease Hx of Infectious Diseases: None - Tetanus Immunizations Tetanus Immunization: Unknown - Past Medical History & Family History Past Medical History?: Yes - Past Social History Smoking Status: Never Smoked - CARDIAC Hx Hypertension: Yes - ENDOCRINE/METABOLIC Hx Diabetes Mellitus Type 2: Yes - MUSCULOSKELETAL/RHEUMATOLOGICAL Hx Falls: Yes - PSYCHIATRIC Hx Bipolar Disorder: Yes (?) Hx Substance Use: No - SURGICAL HISTORY Hx Surgeries: No - ANESTHESIA Hx Anesthesia: No (unknown, pt unable to recall) Meds Allergies/Adverse Reactions: Allergies Allergy/AdvReac Type Severity Reaction Status Date / Time Penicillins Allergy Verified 02/04/18 10:57 - Medications Medications: Current Medications Amlodipine Besylate (Norvasc) 10 mg PO DAILY [facility] Last Admin: 02/05/18 10:33 Dose: 10 mg Enoxaparin Sodium (Lovenox) 40 mg SC DAILY [facility] Last Admin: 02/05/18 10:32 Dose: 40 mg Sodium Chloride (Sodium Chloride 0.45%) 1,000 mls @ 150 mls/hr IV .Q6H40M [facility] Last Admin: 02/05/18 12:55 Dose: 150 mls/hr Insulin Human Regular (Novolin R) 0 unit SC ACHS [facility] PRN Reason: Protocol Last Admin: 02/05/18 12:30 Dose: Not Given Pantoprazole Sodium (Protonix Ec Tab) 40 mg PO DAILY [facility] Last Admin: 02/05/18 10:33 Dose: 40 mg Results - Vital Signs Recent Vital Signs: Last Vital Signs Temp 98.6 F 02/05/18 07:25 Pulse 70 02/05/18 12:00 Resp 20 02/05/18 07:25 BP 136/64 02/05/18 10:32 Pulse Ox 97 02/05/18 07:25 - Labs Result Diagrams: 02/05/18 07:22 02/05/18 07:22 Labs: Laboratory Results - last 24 hr 02/04/18 02/04/18 02/04/18 10:56 17:13 21:17 WBC RBC Hgb Hct MCV MCH MCHC RDW Plt Count MPV Neut % (Auto) Lymph % (Auto) [place] % (Auto) Eos % (Auto) Baso % (Auto) Neut # (Auto) Lymph # (Auto) [place] # (Auto) Eos # (Auto) Baso # (Auto) Sodium Potassium Chloride Carbon Dioxide Anion Gap BUN Creatinine Est GFR ( Amer) Est GFR (Non-Af Amer) POC Glucose (mg/dL) 179 H 76 112 H Random Glucose Hemoglobin A1c Calcium Magnesium Total Bilirubin AST ALT Alkaline Phosphatase Total Protein Albumin Globulin Albumin/Globulin Ratio [place] Hepatitis A IgM Ab Hep Bs Antigen Hep B Core IgM Ab Hepatitis C Antibody 02/05/18 02/05/18 02/05/18 06:28 07:22 07:22 WBC 8.6 RBC 4.11 L Hgb 12.5 Hct 37.0 MCV 90.1 MCH 30.4 MCHC 33.7 RDW 13.5 Plt Count 185 MPV 8.9 Neut % (Auto) 71.8 Lymph % (Auto) 15.[address] [place] % (Auto) 9.5 Eos % (Auto) 2.6 Baso % (Auto) 0.6 Neut # (Auto) 6.2 Lymph # (Auto) 1.3 [place] # (Auto) 0.8 Eos # (Auto) 0.2 Baso # (Auto) 0.0 Sodium Potassium Chloride Carbon Dioxide Anion Gap BUN Creatinine Est GFR ( Amer) Est GFR (Non-Af Amer) POC Glucose (mg/dL) 109 Random Glucose Hemoglobin A1c 6.6 H Calcium Magnesium Total Bilirubin AST ALT Alkaline Phosphatase Total Protein Albumin Globulin Albumin/Globulin Ratio [place] Hepatitis A IgM Ab Hep Bs Antigen Hep B Core IgM Ab Hepatitis C Antibody 05/02/05/18 02/05/18 07:22 07:22 07:22 WBC RBC Hgb Hct MCV MCH MCHC RDW Plt Count MPV Neut % (Auto) Lymph % (Auto) [place] % (Auto) Eos % (Auto) Baso % (Auto) Neut # (Auto) Lymph # (Auto) [place] # (Auto) Eos # (Auto) Baso # (Auto) Sodium 149 H Potassium 5.2 Chloride 118 H Carbon Dioxide 22 Anion Gap 15 BUN 28 H Creatinine 1.2 Est GFR ( Amer) > 60 Est GFR (Non-Af Amer) > 60 POC Glucose (mg/dL) Random Glucose 112 H Hemoglobin A1c Calcium 9.2 Magnesium 2.8 H Total Bilirubin 0.5 AST 80 H ALT 87 H Alkaline Phosphatase 278 H Total Protein 7.5 Albumin 3.9 Globulin 3.6 Albumin/Globulin Ratio 1.1 [place] 2.1 H* Hepatitis A IgM Ab Negative Hep Bs Antigen Negative Hep B Core IgM Ab Negative Hepatitis C Antibody Negative 02/05/18 12:26 WBC RBC Hgb Hct MCV MCH MCHC RDW Plt Count MPV Neut % (Auto) Lymph % (Auto) [place] % (Auto) Eos % (Auto) Baso % (Auto) Neut # (Auto) Lymph # (Auto) [place] # (Auto) Eos # (Auto) Baso # (Auto) Sodium Potassium Chloride Carbon Dioxide Anion Gap BUN Creatinine Est GFR ( Amer) Est GFR (Non-Af Amer) POC Glucose (mg/dL) 102 Random Glucose Hemoglobin A1c Calcium Magnesium Total Bilirubin AST ALT Alkaline Phosphatase Total Protein Albumin Globulin Albumin/Globulin Ratio [place] Hepatitis A IgM Ab Hep Bs Antigen Hep B Core IgM Ab Hepatitis C Antibody
[2018-02-05 17:26] LABS: ALBUMIN 3.8 g/dL (3.5-5.0); ALT/SGPT 101 U/L (21-72); AST/SGOT 80 U/L (17-59); BLOOD UREA NITROGEN 24 mg/dL (9-20); CALCIUM 9.4 mg/dl (8.6-10.4); GFR AFRICAN-AMERICAN > 60; GFR NON-AFRICAN AMERICAN > 60
[2018-02-05 20:01] LABS: OSMOLALITY,URINE 471 mosm/kg (300-1000)
[2018-02-06] MEDS: Sodium Chloride 0.45% 1,000 ML IV SCH ×3 (02:14→21:18)
--- NOTE | 2018-02-06 07:23 | CP.PCM.PN ---
<StephAlia - Last Filed: 02/06/18 07:26> Subjective - Date & Time of Evaluation Date of Evaluation: 02/06/18 Time of Evaluation: 07:22 - Subjective Subjective: Progress Note for Dr. Taylor Patient seen and examined at bedside. No acute events overnight. Patient is unable to recall the date. Patient states he's at medical center. Patient has no complaints at this time, but shows delayed reaction time. Objective - Vital Signs/Intake and Output Vital Signs (last 24 hours): Temp Pulse Resp BP Pulse Ox 98.3 F 73 20 131/71 98 02/05/18 23:55 02/05/18 23:55 02/05/18 23:55 02/05/18 23:55 02/05/18 23:55 Intake and Output: 02/06/18 02/06/18 06:59 18:59 Intake Total 1200 Balance 1200 - Medications Medications: Current Medications Amlodipine Besylate (Norvasc) 10 mg PO DAILY [facility] Last Admin: 02/05/18 10:33 Dose: 10 mg Enoxaparin Sodium (Lovenox) 40 mg SC DAILY [facility] Last Admin: 02/05/18 10:32 Dose: 40 mg Sodium Chloride (Sodium Chloride 0.45%) 1,000 mls @ 150 mls/hr IV .Q6H40M [facility] Last Admin: 02/06/18 02:14 Dose: Not Given Insulin Human Regular (Novolin R) 0 unit SC [facility] PRN Reason: Protocol Last Admin: 02/05/18 21:38 Dose: Not Given Pantoprazole Sodium (Protonix Ec Tab) 40 mg PO DAILY [facility] Last Admin: 02/05/18 10:33 Dose: 40 mg - Labs Labs: 02/05/18 07:22 02/05/18 16:48 PT 11.6 SECONDS (9.7-12.2) 02/04/18 11:33 INR 1.1 02/04/18 11:33 APTT 35 SECONDS (21-34) H 02/04/18 11:33 - Additional Findings Additional findings: - Head Exam Head Exam: ATRAUMATIC, NORMAL INSPECTION, NORMOCEPHALIC - Eye Exam Eye Exam: EOMI, Normal appearance Pupil Exam: NORMAL ACCOMODATION - ENT Exam ENT Exam: Mucous Membranes Moist, Normal Exam - Neck Exam Neck Exam: Full ROM. absent: Tenderness, Thyromegaly - Respiratory Exam Respiratory Exam: Clear to Ausculation Bilateral, NORMAL BREATHING PATTERN. absent: Accessory Muscle Use, Chest Wall Tenderness - Cardiovascular Exam Cardiovascular Exam: REGULAR RHYTHM, +S1, +S2, Murmur. absent: Bradycardia, Tachycardia - GI/Abdominal Exam GI & Abdominal Exam: Soft, Normal Bowel Sounds. Central obesity therefore liver and spleen could not be palpated absent: Guarding, Tenderness - Extremities Exam Extremities Exam: Full ROM. absent: Pedal Edema Additional comments: Patient has resting tremor noted on extremities with prominent tremor noted on left upper extremity - Neurological Exam Neurological Exam: Awake, CN II-XII Intact. absent: Oriented x3 PT is working with patient and we will follow up their recommendations - Psychiatric Exam Psychiatric exam: flat Affect, Normal Mood - Skin Skin Exam: Dry, Intact, Normal Color, Warm Assessment and Plan - Assessment and Plan (Free Text) Assessment: This is a 67 yo male with PMH bipolar disorder, HTN, DM, presents with with AMS and gait changes 1. Altered mental status -urine drug screen positive for Benzos -alcohol level negative -lithium level 2.6 on admission -EKG: no acute changes -CXR shows some mild cardiomegaly -echo: Left ventricular EF within normal range, LV diastolic function function, EF 75% -neuro consult. Dr. Salvador -head CT: no acute changes -psych consult. Dr. John. recs appreciated. -fall precautions 2. Hx of bipolar -restart abilify 10 mg daily -psych consult as above -hold benzo -hold lithium -monitor vitals 3. Diarrhea -f/u stool culture -f/u stool occult blood -f/u fecal leukocytes -f/u stool c diff 4. Hx of HTN -continue home lisinopril -continue home Norvasc 5. hx of DM -ISS -accucheck -hypoglycemia protocol -hold gabapentin 6. GI/DVT ppx -Lovenox 40 daily sc -Protonix PO 40 mg daily discussed with Dr. Chacho Choi DO PGY1 <Chacho Taylor - Last Filed: 02/06/18 19:08> Objective - Vital Signs/Intake and Output Vital Signs (last 24 hours): Temp Pulse Resp BP Pulse Ox 98.2 F 72 20 121/76 97 02/06/18 15:00 02/06/18 15:00 02/06/18 15:00 02/06/18 15:00 02/06/18 15:00 Intake and Output: 02/06/18 02/07/18 18:59 06:59 Intake Total 1350 Output Total 1400 Balance -50 - Medications Medications: Current Medications Amlodipine Besylate (Norvasc) 10 mg PO DAILY [facility] Last Admin: 02/06/18 09:46 Dose: 10 mg Enoxaparin Sodium (Lovenox) 40 mg SC DAILY [facility] Last Admin: 02/06/18 09:46 Dose: 40 mg Sodium Chloride (Sodium Chloride 0.45%) 1,000 mls @ 100 mls/hr IV .Q10H [facility] Last Admin: 02/06/18 11:15 Dose: 100 mls/hr Insulin Human Regular (Novolin R) 0 unit SC ACHS [facility] PRN Reason: Protocol Last Admin: 02/06/18 16:56 Dose: Not Given Pantoprazole Sodium (Protonix Ec Tab) 40 mg PO DAILY [facility] Last Admin: 02/06/18 09:46 Dose: 40 mg Quetiapine Fumarate (Seroquel) 100 mg PO HS [facility] - Labs Labs: 02/05/18 07:22 02/05/18 16:48 PT 11.6 SECONDS (9.7-12.2) 02/04/18 11:33 INR 1.1 02/04/18 11:33 APTT 35 SECONDS (21-34) H 02/04/18 11:33 Attending/Attestation - Attestation I have personally seen and examined this patient.: Yes I have fully participated in the care of the patient.: Yes I have reviewed all pertinent clinical information, including history, physical exam and plan: Yes
[2018-02-06] MEDS: (Novolin R) Insulin Human Regular 100 units/ml vial SC SCH ×4 (08:23→21:31)
[2018-02-06] MEDS: Enoxaparin 40 mg Syringe SC SCH (09:46)
[2018-02-06] MEDS: Pantoprazole 40 mg EC Tab PO SCH (09:46)
--- NOTE | 2018-02-06 12:43 | CP.PCM.PN ---
Subjective - Date & Time of Evaluation Date of Evaluation: 02/06/18 Time of Evaluation: 12:41 - Subjective Subjective: Nephrology Consultation Note: Assessment: Stable Acute Kidney Injury (N17.9) likely due to pre-renal state elevated Li level Hypernatremia dehydration DM/HTN/bipolar disorder, obesity hx of essential tremors Plan No acute need for renal replacement therapy at this time. Hypertension control with meds as ordered. 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 Avoid fleets enema/magnesium based laxatives. Avoid nephrotoxins/NSAIDs/ iodinated contrast (unless needed emergently) Glycemic control Further work up/management as per primary team Thanks for allowing me to participate in care of your patient. Will follow patient with you. Please call if any Qs. d/w team Dr Glynn Hancock Office: [phone] Chief Complaint; tremors Reason for consultation acute kidney injury and elevated lithium level HPI: Pt is a 67 M with hx of diabetes Mellitus ( years), hypertension (years) Bipolar disorder on lithium for 40 years presented with complaints of Tremors and shakiness and unsteady gait. He also reports loose stools last few days approximately 5 days. Denies any kidney disease in the past denies any urinary complaint Denies OTC/herbal meds or NSAIDs No recent iodinated contrast exposure. No obvious episodes of low BP. ROS: Cardiovascular: No chest pain. Pulmonary: No shortness of breath Gastrointestinal: denies abdominal pain No nausea. No vomiting. Genitourinary: No pain while urinating. Denies blood in urine. All other negative except as mentioned in HPI Physical Examination: General Appearance: Comfortable, in no acute respiratory distress, co-operative . better-appearing and tremulous Vitals reviewed and noted as below Head; Atraumatic, normocephalic ENT: no ulcers no thrush. Tongue is midline. Oropharynx: no rash or ulcers. EYES: Pupils are equal, round and reactive to light accommodation. Eye muscles and extra-ocular movement intact. Sclera is anicteric. Neck; supple no lymphadenopathy, no thyromegaly or bruit Lungs: Normal respiratory rate/effort. Breath sounds bilateral equal and clear Heart: Normal rate. s1s2 normal. No rub or gallop. Extremities: no edema. No varicose veins Neurological: Patient is alert, awake and oriented to person, place and time. No focal deficit. Strength bilateral appropriate and equal. Shakiness and tremulousness noted Skin: Warm and dry. Normal turgor. No rash. Palpitation: Normal elasticity for age Abdomen: Abdomen is soft. Bowel sounds +. There is no abdominal tenderness, no guarding/rigidity no organomegaly Psych: normal insight and flat affect/mood MSK: no joint tenderness or swelling. Digits and nails normal, no deformity : kidney or bladder not palpable Labs/imaging reviewed. Past medical history, past surgical history, family history, social history, allergy reviewed and noted as below Family hx: no hx of CKD. Rest non-contributory Objective - Vital Signs/Intake and Output Vital Signs (last 24 hours): Temp Pulse Resp BP Pulse Ox 98.5 F 71 18 129/73 98 02/06/18 07:45 02/06/18 09:40 02/06/18 07:45 02/06/18 09:40 02/06/18 07:45 Intake and Output: 02/06/18 02/06/18 06:59 18:59 Intake Total 1200 Balance 1200 - Medications Medications: Current Medications Amlodipine Besylate (Norvasc) 10 mg PO DAILY [facility] Last Admin: 02/06/18 09:46 Dose: 10 mg Enoxaparin Sodium (Lovenox) 40 mg SC DAILY [facility] Last Admin: 02/06/18 09:46 Dose: 40 mg Sodium Chloride (Sodium Chloride 0.45%) 1,000 mls @ 100 mls/hr IV .Q10H [facility] Last Admin: 02/06/18 11:15 Dose: 100 mls/hr Insulin Human Regular (Novolin R) 0 unit SC ACHS [facility] PRN Reason: Protocol Last Admin: 02/06/18 11:48 Dose: Not Given Pantoprazole Sodium (Protonix Ec Tab) 40 mg PO DAILY [facility] Last Admin: 02/06/18 09:46 Dose: 40 mg - Labs Labs: 02/05/18 07:22 02/05/18 16:48 PT 11.6 SECONDS (9.7-12.2) 02/04/18 11:33 INR 1.1 02/04/18 11:33 APTT 35 SECONDS (21-34) H 02/04/18 11:33
--- NOTE | 2018-02-06 15:23 | CP.PCM.PCO ---
Physician Communication Note - Physician Communication Note Physician Communication Note: Please see above
--- NOTE | 2018-02-06 22:19 | PCM.PYCHPN ---
Psychiatric Progress Note - Psychiatric Progress Note Patient seen today, length of contact: 16 min Patient Chief Complaint: "Not well" Problems Identified/Issues Discussed: He is seen, chart reviewed and case discussed His Li level is coming down He agrees to go back to his psychiatrist Seroquel will be started, which is an approved, commonly used med for bipolar d/ o He is not suicidal/homicidal, no AVH He is slow in cognition and makes small mistakes in orientation Medication Change: Yes (add seroquel) Medical Record Reviewed: Yes Mental Status Examination - Cognitive Function Orientation: Person, Place, Situation Memory: Impaired Attention: Poor Concentration: Poor Association: WNL (slowed) Fund of Knowledge: Poor - Mood Mood: Anxious - Affect Affect: Flat - Speech Speech: Soft - Formal Thought Process Formal Thought Process: No Impairment - Suicidal Ideation Suicidal Ideation: No - Homicidal Ideation Homicidal Ideation: No Goal/Treatment Plan - Goal/Treatment Plan Need for Continued Stay: Discharge may exacerbated symptoms, Severe functional impairment Progress Toward Problem(s) and Goals/Treatment Plan: Bipolar disorder I - severe -Support and psychoed provided -Seroquel 100 mg HS -Consider seroquel or other alternatives until he sees his psychiatrist
[2018-02-07] MEDS: Sodium Chloride 0.45% 1,000 ML IV SCH (06:59)
[2018-02-07 07:18] LABS: BASO % 0.5 % (0.0-2.0); EOS # 0.3 K/uL (0.0-0.7); EOS % 3.4 % (0.0-4.0); LYMPH # 2.5 K/uL (1.0-4.3); LYMPH % 28.9 % (20.0-40.0); MEAN CORPUSCULAR HEMOGLOBIN 30.4 pg (27.0-31.0); MEAN CORPUSCULAR HGB CONC 34.1 g/dL (33.0-37.0); MEAN PLATELET VOLUME 8.4 fL (7.2-11.7); MONO # 0.8 K/uL (0.0-0.8); MONO % 8.9 % (0.0-10.0); NEUT % 58.3 % (50.0-75.0); NRBC % 0.1 % (0.0-2.0); RBC 4.29 Mil/uL (4.40-5.90); RED CELL DISTRIBUTION WIDTH 13.2 % (11.5-14.5); WHITE BLOOD COUNT 8.6 K/uL (4.8-10.8)
--- NOTE | 2018-02-07 07:20 | CP.PCM.PN ---
<Alia Choi - Last Filed: 02/07/18 17:18> Subjective - Date & Time of Evaluation Date of Evaluation: 02/07/18 Time of Evaluation: 07:20 - Subjective Subjective: Progress Note for Dr. Taylor Patient seen and examined at bedside. Patient is able to state month and year. Patient tears up while interview was asked. Patient appears comfortable, but continues to be delayed with answering. Per PATT Garcia, patient was very drowsy in the morning, but comparatively more awake by the time this resident was at bedside. Patient was started on seroquel 100mg PO HS last night. Patient states he does not want to be on seroquel because it causes hallucinations. Patient was more alert during the day on visit with attending. Objective - Vital Signs/Intake and Output Vital Signs (last 24 hours): Temp Pulse Resp BP Pulse Ox 97.8 F 69 20 121/76 97 02/06/18 23:55 02/06/18 23:55 02/06/18 23:55 02/06/18 15:00 02/06/18 23:55 Intake and Output: 02/07/18 02/07/18 06:59 18:59 Intake Total 1720 Output Total 1500 Balance 220 - Medications Medications: Current Medications Amlodipine Besylate (Norvasc) 10 mg PO DAILY [facility] Last Admin: 02/06/18 09:46 Dose: 10 mg Enoxaparin Sodium (Lovenox) 40 mg SC DAILY [facility] Last Admin: 02/06/18 09:46 Dose: 40 mg Sodium Chloride (Sodium Chloride 0.45%) 1,000 mls @ 100 mls/hr IV .Q10H [facility] Last Admin: 02/07/18 06:59 Dose: 100 mls/hr Insulin Human Regular (Novolin R) 0 unit SC ACHS [facility] PRN Reason: Protocol Last Admin: 02/06/18 21:31 Dose: Not Given Pantoprazole Sodium (Protonix Ec Tab) 40 mg PO DAILY [facility] Last Admin: 02/06/18 09:46 Dose: 40 mg Quetiapine Fumarate (Seroquel) 100 mg PO HS [facility] Last Admin: 02/06/18 21:18 Dose: 100 mg - Labs Labs: 02/05/18 07:22 02/05/18 16:48 PT 11.6 SECONDS (9.7-12.2) 02/04/18 11:33 INR 1.1 02/04/18 11:33 APTT 35 SECONDS (21-34) H 02/04/18 11:33 - Additional Findings Additional findings: Head Exam Head Exam: ATRAUMATIC, NORMAL INSPECTION, NORMOCEPHALIC - Eye Exam Eye Exam: EOMI, Normal appearance Pupil Exam: NORMAL ACCOMODATION - ENT Exam ENT Exam: Mucous Membranes Moist, Normal Exam - Neck Exam Neck Exam: Full ROM. absent: Tenderness, Thyromegaly - Respiratory Exam Respiratory Exam: Clear to Ausculation Bilateral, NORMAL BREATHING PATTERN. absent: Accessory Muscle Use, Chest Wall Tenderness - Cardiovascular Exam Cardiovascular Exam: REGULAR RHYTHM, +S1, +S2, Murmur. absent: Bradycardia, Tachycardia - GI/Abdominal Exam GI & Abdominal Exam: Soft, Normal Bowel Sounds. Central obesity therefore liver and spleen could not be palpated absent: Guarding, Tenderness - Extremities Exam Extremities Exam: Full ROM. absent: Pedal Edema Additional comments: Patient has resting tremor noted on extremities with prominent tremor noted on left upper extremity - Neurological Exam Neurological Exam: Awake, CN II-XII Intact. absent: Oriented x3 - Psychiatric Exam Psychiatric exam: flat Affect, Normal Mood - Skin Skin Exam: Dry, Intact, Normal Color, Warm Assessment and Plan - Assessment and Plan (Free Text) Assessment: This is a 67 yo male with PMH bipolar disorder, HTN, DM, presents with with AMS and gait changes 1. Altered mental status -urine drug screen positive for Benzos -alcohol level negative -lithium level 2.6 on admission -EKG: no acute changes -CXR shows some mild cardiomegaly -echo: Left ventricular EF within normal range, LV diastolic function function, EF 75% -neuro consult. Dr. Salvador -head CT: no acute changes -Psych consult: Dr. John -fall precautions 2. Hx of bipolar -restart abilify 10 mg daily, hold lithium and benzos 02/06 Eek level downtrending but elevated 02/07 Eek level normal 02/06 Dr. Taylor called the office of Psychiatrist Dr. Reynaldo Finley and confirmed with Roxy there patient was last seen on 01/25/18 and was told to discontinue Eek and start Abilify. Appointment was made with Dr. Finley for [place] 5/21/18 at 2:30 PM was made and Medicine Team will provide patient with his records prior to discharge. -monitor vitals 02/06 Dr. Taylor spoke with Dr. Euceda and we have ordered Seroquel 100 mg PO HS Seroquel 100mg PO HS, discontinued 02/07 due to former side effects ( hallucinations) 3. Diarrhea -f/u stool culture, not collected -f/u stool occult blood -f/u fecal leukocytes, not collected -f/u stool c diff, not collected 4. Hx of HTN Norvasc 10 mg PO QD 5. hx of DM -ISS -accucheck -hypoglycemia protocol -hold gabapentin 6. GI/DVT ppx -Lovenox 40 daily sc -Protonix PO 40 mg daily discussed with Dr. Chacho Choi, DO PGY1 <Chacho Taylor J - Last Filed: 02/07/18 18:57> Objective - Vital Signs/Intake and Output Vital Signs (last 24 hours): Temp Pulse Resp BP Pulse Ox 99.2 F 92 H 20 121/70 95 02/07/18 15:00 02/07/18 16:00 02/07/18 15:00 02/07/18 15:00 02/07/18 15:00 Intake and Output: 02/07/18 02/07/18 06:59 18:59 Intake Total 1720 1200 Output Total 1500 1400 Balance 220 -200 - Medications Medications: Current Medications Amlodipine Besylate (Norvasc) 10 mg PO DAILY [facility] Last Admin: 02/07/18 09:52 Dose: 10 mg Enoxaparin Sodium (Lovenox) 40 mg SC DAILY [facility] Last Admin: 02/07/18 09:52 Dose: 40 mg Insulin Human Regular (Novolin R) 0 unit SC [facility] PRN Reason: Protocol Last Admin: 02/07/18 16:58 Dose: 1 unit Pantoprazole Sodium (Protonix Ec Tab) 40 mg PO DAILY [facility] Last Admin: 02/07/18 09:52 Dose: 40 mg Quetiapine Fumarate (Seroquel) 200 mg PO HS [facility] - Labs Labs: 02/07/18 07:06 02/07/18 07:06 PT 11.6 SECONDS (9.7-12.2) 02/04/18 11:33 INR 1.1 02/04/18 11:33 APTT 35 SECONDS (21-34) H 02/04/18 11:33 Attending/Attestation - Attestation I have personally seen and examined this patient.: Yes I have fully participated in the care of the patient.: Yes I have reviewed all pertinent clinical information, including history, physical exam and plan: Yes Notes (Text): 02/07/18 18:54 Patient was seen and examined at 12:30 PM Exam, assessment and plan were gone over with the resident. Patient more alert today and is oriented to person, place, and time. Seroquel was discontinued as patient stated he had hallucinations with it. Abilify 10 mg PO 1x/day was restarted. He is cleared by Psychiatry for discharge. PT has recommended [facility]. Spoke with counseling case manager Carlo and will arrange for [facility] if patient agrees and if not then Home PT/Nurse. Chacho Taylor D.O.
[2018-02-07 07:32] LABS: ALBUMIN 3.8 g/dL (3.5-5.0); ALT/SGPT 95 U/L (21-72); AST/SGOT 64 U/L (17-59); BLOOD UREA NITROGEN 20 mg/dL (9-20); CALCIUM 9.6 mg/dl (8.6-10.4); GFR AFRICAN-AMERICAN > 60; GFR NON-AFRICAN AMERICAN > 60
[2018-02-07] MEDS: (Novolin R) Insulin Human Regular 100 units/ml vial SC SCH ×4 (09:10→21:34)
[2018-02-07] MEDS: Pantoprazole 40 mg EC Tab PO SCH (09:52)
[2018-02-07] MEDS: Enoxaparin 40 mg Syringe SC SCH (09:52)
--- NOTE | 2018-02-07 13:39 | PCM.PYCHPN ---
Psychiatric Progress Note - Psychiatric Progress Note Patient seen today, length of contact: 16 min Patient Chief Complaint: "OK" Problems Identified/Issues Discussed: He is seen, chart reviewed and case discussed He doesn't look good but he says he is OK He talks very slow, monotonous, has flat affect, perplexed even, TP is also slowed No AVH or delusions Ok with seroquel for now Will increase the dose b/c he still feels depressed Support given He agrees to go back to his psychiatrist Li level is going down He has some twitches Medication Change: Yes (add seroquel) Medical Record Reviewed: Yes Mental Status Examination - Cognitive Function Orientation: Person, Place, Situation Memory: Impaired Attention: Poor Concentration: Poor Association: WNL (slowed) Fund of Knowledge: Poor - Mood Mood: Anxious - Affect Affect: Flat - Speech Speech: Soft - Formal Thought Process Formal Thought Process: Other (very slowed) - Suicidal Ideation Suicidal Ideation: No - Homicidal Ideation Homicidal Ideation: No Goal/Treatment Plan - Goal/Treatment Plan Need for Continued Stay: Discharge may exacerbated symptoms, Severe functional impairment Progress Toward Problem(s) and Goals/Treatment Plan: Bipolar disorder I - severe -Support and psychoed provided -Seroquel 100 mg HS is now 200 mg - Abilify could be an option too
--- NOTE | 2018-02-07 16:51 | CP.PCM.PN ---
Subjective - Date & Time of Evaluation Date of Evaluation: 02/07/18 Time of Evaluation: 16:48 - Subjective Subjective: Nephrology Consultation Note: Assessment: Stable Acute Kidney Injury (N17.9) likely due to pre-renal state elevated Li level Hypernatremia dehydration DM/HTN/bipolar disorder, obesity hx of essential tremors Plan No acute need for renal replacement therapy at this time. Hypertension control with meds as ordered. Patient not on ACEI/ARB as BP okay and DAIJA Monitor Input/Output, daily weights and renal function with basic metabolic panel d/c IVF Li level continue to improve, and no acute need for dialysis at this time Dose meds/antibiotics for improved GFR. Glycemic control Further work up/management as per primary team Thanks for allowing me to participate in care of your patient. Will sign off and follow further PRN basis. Please call if any Qs. had d/w team Dr Glynn Hancock Office: [phone] Chief Complaint; tremors Reason for consultation acute kidney injury and elevated lithium level HPI: Pt is a 67 M with hx of diabetes Mellitus ( years), hypertension (years) Bipolar disorder on lithium for 40 years presented with complaints of Tremors and shakiness and unsteady gait. He also reports loose stools last few days approximately 5 days. Denies any kidney disease in the past denies any urinary complaint Denies OTC/herbal meds or NSAIDs No recent iodinated contrast exposure. No obvious episodes of low BP. ROS: Cardiovascular: No chest pain. Pulmonary: No shortness of breath Gastrointestinal: denies abdominal pain No nausea. No vomiting. Genitourinary: No pain while urinating. Denies blood in urine. All other negative except as mentioned in HPI Physical Examination: General Appearance: Comfortable, in no acute respiratory distress, co-operative . better-appearing and tremulous Vitals reviewed and noted as below Head; Atraumatic, normocephalic ENT: no ulcers no thrush. Tongue is midline. Oropharynx: no rash or ulcers. EYES: Pupils are equal, round and reactive to light accommodation. Eye muscles and extra-ocular movement intact. Sclera is anicteric. Neck; supple no lymphadenopathy, no thyromegaly or bruit Lungs: Normal respiratory rate/effort. Breath sounds bilateral equal and clear Heart: Normal rate. s1s2 normal. No rub or gallop. Extremities: no edema. No varicose veins Neurological: Patient is alert, awake and oriented to person, place and time. No focal deficit. Strength bilateral appropriate and equal. Shakiness and tremulousness noted Skin: Warm and dry. Normal turgor. No rash. Palpitation: Normal elasticity for age Abdomen: Abdomen is soft. Bowel sounds +. There is no abdominal tenderness, no guarding/rigidity no organomegaly Psych: limited insight and flat affect/mood MSK: no joint tenderness or swelling. Digits and nails normal, no deformity : kidney or bladder not palpable Labs/imaging reviewed. Past medical history, past surgical history, family history, social history, allergy reviewed and noted as below Family hx: no hx of CKD. Rest non-contributory Objective - Vital Signs/Intake and Output Vital Signs (last 24 hours): Temp Pulse Resp BP Pulse Ox 98.5 F 79 18 132/73 96 02/07/18 07:35 02/07/18 12:00 02/07/18 07:35 02/07/18 09:52 02/07/18 07:35 Intake and Output: 02/07/18 02/07/18 06:59 18:59 Intake Total 1720 1200 Output Total 1500 1400 Balance 220 -200 - Medications Medications: Current Medications Amlodipine Besylate (Norvasc) 10 mg PO DAILY [facility] Last Admin: 02/07/18 09:52 Dose: 10 mg Enoxaparin Sodium (Lovenox) 40 mg SC DAILY [facility] Last Admin: 02/07/18 09:52 Dose: 40 mg Sodium Chloride (Sodium Chloride 0.45%) 1,000 mls @ 100 mls/hr IV .Q10H [facility] Last Admin: 02/07/18 06:59 Dose: 100 mls/hr Insulin Human Regular (Novolin R) 0 unit SC ACHS [facility] PRN Reason: Protocol Last Admin: 02/07/18 13:07 Dose: 1 unit Pantoprazole Sodium (Protonix Ec Tab) 40 mg PO DAILY [facility] Last Admin: 02/07/18 09:52 Dose: 40 mg Quetiapine Fumarate (Seroquel) 200 mg PO HS [facility] - Labs Labs: 02/07/18 07:06 02/07/18 07:06 PT 11.6 SECONDS (9.7-12.2) 02/04/18 11:33 INR 1.1 02/04/18 11:33 APTT 35 SECONDS (21-34) H 02/04/18 11:33
[2018-02-08 07:34] LABS: BASO # 0.1 K/uL (0.0-0.2); BASO % 0.6 % (0.0-2.0); EOS # 0.2 K/uL (0.0-0.7); EOS % 2.5 % (0.0-4.0); HEMOGLOBIN 13.1 g/dL (12.0-18.0); LYMPH # 1.9 K/uL (1.0-4.3); LYMPH % 19.7 % (20.0-40.0); MEAN CELL VOLUME 88.4 fL (80.0-94.0); MEAN CORPUSCULAR HEMOGLOBIN 30.4 pg (27.0-31.0); MEAN CORPUSCULAR HGB CONC 34.4 g/dL (33.0-37.0); MEAN PLATELET VOLUME 8.9 fL (7.2-11.7); MONO # 0.9 K/uL (0.0-0.8); MONO % 9.4 % (0.0-10.0); NEUT # 6.6 K/uL (1.8-7.0); NEUT % 67.8 % (50.0-75.0); NRBC % 0.2 % (0.0-2.0); RBC 4.31 Mil/uL (4.40-5.90); RED CELL DISTRIBUTION WIDTH 13.5 % (11.5-14.5); WHITE BLOOD COUNT 9.8 K/uL (4.8-10.8)
[2018-02-08 07:53] LABS: ALB/GLOB RATIO 1.1 (1.0-2.1); ALT/SGPT 90 U/L (21-72); AST/SGOT 67 U/L (17-59); BLOOD UREA NITROGEN 21 mg/dL (9-20); CALCIUM 9.5 mg/dl (8.6-10.4); GFR AFRICAN-AMERICAN > 60; GFR NON-AFRICAN AMERICAN > 60
[2018-02-08] MEDS: (Novolin R) Insulin Human Regular 100 units/ml vial SC SCH ×4 (08:07→22:24)
--- NOTE | 2018-02-08 08:55 | CP.PCM.PN ---
Subjective - Date & Time of Evaluation Date of Evaluation: 02/08/18 Time of Evaluation: 08:40 - Subjective Subjective: Hospitalist Progress Note Patient was seen and examined at 8:40 AM 02/08/18. He is more alert today and is aware of day,date, year and where he is. He understands that he will be discharged to home that he has a follow up appointment with his outpatient Psychiatrist this Monday02/12/18. He understands that [facility] care will be coming to his residence for home PT/Visitin Nurse and will also be evaluating him for home health aid (he joked " do they do dishes ") Upon ROS: Has not moved bowels yet as he states that he is embarrassed NO n/v NO abdominal pain NO lightheadedness/dizziness NO chest pain NO SOB/Wheezing NO headache NO new changes in vision NO new changes in hearing NO other complaints upon FULL ROS Exam: General: AAOX3, NAD, Resting tremor bilateral UE noted, Stutters when he speaks and rarely makes eye contact HEENT: NCA, EOMI, PERRLA, NO cervical/supraclavicular/submandibular lymphadenopathy, NO pharyngeal erythema/exudate, Nasal Turbinates are nonerythematous/nonedematous, Oral Mucosa is moist Cardio: NS1 and NS2, NO M/R/G Resp: CTA B/L, NO R/R/W GI: BSx4, Soft, NT, NO HSM, Cetnral Obesity,NO guarding/rebound tenderness Ext: Pulses are strong and equal, Capillary Refill is 2 seconds, NO edema Neuro: CN II through XII are grossly intact Assessments: 1). [place] Toxicity: Patient was taking this at home despite his outpatient Psychiatrist taking him off it earlier this month. CT Head did not show any acute pathology. Echocardiogram was normal. 2). Hx Bipolar Disorder: patient will be discharged on Abilify 3). Hx Diarrhea: stool studies never sent (see HPI above). However NO fevers, NO abdominal pain, NO WBC 4). Hx HTN 5). Hx DM [address] Euceda 02/07/18 and he has been cleared from Psychiatry standpoint. His lithium level is now 0.8 and his mentation has improved. Home care as mentioned above has been set up. He has outpatient Psychiatry appointment set up. He is stable from Medicine Team perspective for discharge to home. He is concerned about not being able to find his keys. He lives with his Landlord who will be contacted by Equal Opportunity Representative/Health Sciences Department Chair to come meat pickler patient. The following instructions will need to be printed for patient and he will need to bring with him to his appointment with his outpatient Psychiatrist: 1). Your appointment with Dr. Reynaldo Finley is for this Monday02/12/18 at 2: 30 PM. His office is located [address] [place] [address] [place] [address] and his office phone number is [phone]. 2). You have been set up for home visiting nurse and home physical therapy through [facility]. Through [facility] you will also be evaluated for the need for home health aid. The customer contact specialist from [facility] is Jessie Wang and her office number is [phone] and her cell phone number is [phone]. 3). The following prescriptions were provided to you and please take them as directed: Abilify 10 mg, 1 tablet by mouth 1x/day (evening) Norvasc 10 mg, 1 tablet by mouth 1x/day (breakfast) Glipizide 10 mg, 1 tablet by mouth 1x/day (lunch) Metformin 1,000 mg, 1 tablet by mouth 2x/day (breakfast and dinner) Lisinopril 20 mg , 1 tablet by mouth 1x/day (breakfast). 4). Please DO NOT take [place] and Norvasc. 5). Please take care and be well. Chacho Taylor D.O. Objective - Vital Signs/Intake and Output Vital Signs (last 24 hours): Temp Pulse Resp BP Pulse Ox 98.2 F 78 20 127/74 96 02/08/18 07:50 02/08/18 07:50 02/08/18 07:50 02/08/18 07:50 02/08/18 07:50 Intake and Output: 02/08/18 02/08/18 06:59 18:59 Intake Total 1000 Output Total 1850 Balance -850 - Medications Medications: Current Medications Amlodipine Besylate (Norvasc) 10 mg PO DAILY [facility] Last Admin: 02/07/18 09:52 Dose: 10 mg Aripiprazole (Abilify) 10 mg PO HS [facility] Enoxaparin Sodium (Lovenox) 40 mg SC DAILY [facility] Last Admin: 02/07/18 09:52 Dose: 40 mg Insulin Human Regular (Novolin R) 0 unit SC [facility] PRN Reason: Protocol Last Admin: 02/08/18 08:07 Dose: Not Given Pantoprazole Sodium (Protonix Ec Tab) 40 mg PO DAILY [facility] Last Admin: 02/07/18 09:52 Dose: 40 mg - Labs Labs: 02/08/18 07:13 02/08/18 07:13 PT 11.6 SECONDS (9.7-12.2) 02/04/18 11:33 INR 1.1 02/04/18 11:33 APTT 35 SECONDS (21-34) H 02/04/18 11:33
--- NOTE | 2018-02-08 09:54 | CP.PCM.DIS ---
<StephAlia - Last Filed: 02/08/18 17:56> Provider - Provider Date of Admission: 02/04/18 21:10 Attending physician: Chacho Taylor MD Consults: Dr. Santi Euceda Time Spent in preparation of Discharge (in minutes): 35 Diagnosis - Discharge Diagnosis (1) Change in mental status Status: Resolved Hospital Course - Lab Results Lab Results: Most Recent Lab Values WBC 9.8 K/uL (4.8-10.8) 02/08/18 07:13 RBC 4.31 Mil/uL (4.40-5.90) L 02/08/18 07:13 Hgb 13.1 g/dL (12.0-18.0) 02/08/18 07:13 Hct 38.0 % (35.0-51.0) 02/08/18 07:13 MCV 88.4 fL (80.0-94.0) 02/08/18 07:13 MCH 30.4 pg (27.0-31.0) 02/08/18 07:13 MCHC 34.4 g/dL (33.0-37.0) 02/08/18 07:13 RDW 13.5 % (11.5-14.5) 02/08/18 07:13 Plt Count 198 K/uL (130-400) 02/08/18 07:13 MPV 8.9 fL (7.2-11.7) 02/08/18 07:13 Neut % (Auto) 67.8 % (50.0-75.0) 02/08/18 07:13 Lymph % (Auto) 19.7 % (20.0-40.0) L 02/08/18 07:13 [place] % (Auto) 9.4 % (0.0-10.0) 02/08/18 07:13 Eos % (Auto) 2.5 % (0.0-4.0) 02/08/18 07:13 Baso % (Auto) 0.6 % (0.0-2.0) 02/08/18 07:13 Neut # (Auto) 6.6 K/uL (1.8-7.0) 02/08/18 07:13 Lymph # (Auto) 1.9 K/uL (1.0-4.3) 02/08/18 07:13 [place] # (Auto) 0.9 K/uL (0.0-0.8) H 02/08/18 07:13 Eos # (Auto) 0.2 K/uL (0.0-0.7) 02/08/18 07:13 Baso # (Auto) 0.1 K/uL (0.0-0.2) 02/08/18 07:13 PT 11.6 SECONDS (9.7-12.2) 02/04/18 11:33 INR 1.1 02/04/18 11:33 APTT 35 SECONDS (21-34) H 02/04/18 11:33 Sodium 141 mmol/L (132-148) 02/08/18 07:13 Potassium 4.7 mmol/L (3.6-5.2) 02/08/18 07:13 Chloride 109 mmol/L (98-107) H 02/08/18 07:13 Carbon Dioxide 21 mmol/L (22-30) L 02/08/18 07:13 Anion Gap 16 (10-20) 02/08/18 07:13 BUN 21 mg/dL (9-20) H 02/08/18 07:13 Creatinine 1.0 mg/dL (0.8-1.5) 02/08/18 07:13 Est GFR ( Amer) > 60 02/08/18 07:13 Est GFR (Non-Af Amer) > 60 02/08/18 07:13 POC Glucose (mg/dL) 125 mg/dL (65-110) H 02/08/18 06:18 Random Glucose 125 mg/dL (75-110) H 02/08/18 07:13 Hemoglobin A1c 6.6 % (4.2-6.5) H 02/05/18 07:22 Calcium 9.5 mg/dl (8.6-10.4) 02/08/18 07:13 Phosphorus 3.8 mg/dL (2.5-4.5) 02/08/18 07:13 Magnesium 2.2 mg/dL (1.6-2.3) 02/08/18 07:13 Total Bilirubin 0.6 mg/dL (0.2-1.3) 02/08/18 07:13 AST 67 U/L (17-59) H 02/08/18 07:13 ALT 90 U/L (21-72) H 02/08/18 07:13 Alkaline Phosphatase 280 U/L (38-126) H 02/08/18 07:13 Ammonia 19 umol/L (9-33) 02/04/18 11:34 Troponin I < 0.0120 ng/mL (0.00-0.120) 02/04/18 11:33 Total Protein 7.7 g/dL (6.3-8.3) 02/08/18 07:13 Albumin 4.0 g/dL (3.5-5.0) 02/08/18 07:13 Globulin 3.6 gm/dL (2.2-3.9) 02/08/18 07:13 Albumin/Globulin Ratio 1.1 (1.0-2.1) 02/08/18 07:13 Free T4 1.18 ng/dL (0.78-2.19) 02/04/18 11:33 TSH 3rd Generation 0.37 mIU/L (0.46-4.68) L 02/04/18 11:33 Urine Color Straw (YELLOW) 02/04/18 12:40 Urine Clarity Clear (Clear) 02/04/18 12:40 Urine pH 6.0 (5.0-8.0) 02/04/18 12:40 Ur Specific [place] 1.011 (1.003-1.030) 02/04/18 12:40 Urine Protein Negative mg/dL (NEGATIVE) 02/04/18 12:40 Urine Glucose (UA) Normal mg/dL (Normal) 02/04/18 12:40 Urine Ketones Negative mg/dL (NEGATIVE) 02/04/18 12:40 Urine Blood Negative (NEGATIVE) 02/04/18 12:40 Urine Nitrate Negative (NEGATIVE) 02/04/18 12:40 Urine Bilirubin Negative (NEGATIVE) 02/04/18 12:40 Urine Urobilinogen Normal mg/dL (0.2-1.0) 02/04/18 12:40 Ur Leukocyte Esterase Neg Carlie/uL (Negative) 02/04/18 12:40 Urine WBC (Auto) 2 /hpf (0-5) 02/04/18 12:40 Ur Squamous Epith Cells < 1 /hpf (0-5) 02/04/18 12:40 Urine Osmolality 471 mosm/kg (300-1000) 02/05/18 19:49 Ur Random Sodium 148 mmol/L 02/05/18 19:49 Urine Opiates Screen Negative (NEGATIVE) 02/04/18 12:40 Urine Methadone Screen Negative (NEGATIVE) 02/04/18 12:40 Ur Barbiturates Screen Negative (NEGATIVE) 02/04/18 12:40 Ur Phencyclidine Scrn Negative (NEGATIVE) 02/04/18 12:40 Ur Amphetamines Screen Negative (NEGATIVE) 02/04/18 12:40 U Benzodiazepines Scrn Positive (NEGATIVE) 02/04/18 12:40 Catano 0.8 mmol/L (0.6-1.2) 02/08/18 07:13 U Oth Cocaine Metabols Negative (NEGATIVE) 02/04/18 12:40 U Cannabinoids Screen Negative (NEGATIVE) 02/04/18 12:40 Alcohol, Quantitative < 10 mg/dl (0-10) 02/04/18 11:33 Hepatitis A IgM Ab Negative (NEGATIVE) 02/05/18 07:22 Hep Bs Antigen Negative (NEGATIVE) 02/05/18 07:22 Hep B Core IgM Ab Negative (NEGATIVE) 02/05/18 07:22 Hepatitis C Antibody Negative (NEGATIVE) 02/05/18 07:22 - Hospital Course Hospital Course: HPI This is a 67 yo male with history of bipolar disorder, DM, HTN, paranoid behavior presenting to [facility] ER today with altered mental status. Pt was brought in by his landlord who saw him acting strangely. Pt has been falling at home and has been unable to cook for himself. Pt is poor historian and is unable to provide detailed answers to questions. Pt also has long standing tremor. He takes lithium but cannot say how much or last time refilled. He denies pain, fevers, chills, vomiting, diarrhea. He reports past hx of alcoholism but says his last drink was 10 years ago. He denies drug use. Hospital Course Patient was seen at bedside during his stay by neurology, physical therapy, and psychiatry. CT head negative CXR cardiomegaly ECHO: EF 75%, normal LV diastolic function Patient's lithium level was elevated at 2.6, downtrending throughout stay. 517 on discharge is 0.8. Patient states he had diarrhea, will follow up if continues as outpatient with GI and primary care doctor. Patient was given abilify 10mg QD seroquel 100mg was ordered 02/06, patient was drowsy the next day and stated seroquel had given him lhallucinations in the past >300mg Seroquel 200mg was ordered 02/[address] Euceda. Patient was seen by physical therapy who recommended AUSTEN. Patient refused AUSTEN and stated he was okay with home services, and home physical therapy. social science research assistant was able to set up home services. Please see below. Patient discharged the next day, able to speak well, medically stable, for home physical therapy and visiting nurse services This is a brief summary of events at patient's hospital stay. Please see EMR for further information. Patient discharged with the instructions below by Dr. Chacho Taylor Please note that the following are the discharge instructions for this patient: The following instructions will need to be printed for patient and he will need to bring with him to his appointment with his outpatient Psychiatrist: 1). Your appointment with Dr. Reynaldo Finley is for this Monday02/12/18 at 2: 30 PM. His office is located [address] [place] [address] [place] [address] and his office phone number is [phone]. 2). You have been set up for home visiting nurse and home physical therapy through [facility]. Through [facility] you will also be evaluated for the need for home health aid. The supervisor contact and service clerks from [facility] is Jessie Wang and her office number is [phone] and her cell phone number is [phone]. 3). The following prescriptions were sent to your pharmacy [facility] located at [address] [place] [address] in [place], [place] ([phone]). Please pick them up on your way home from the hospital and please take them as directed : Abilify 10 mg, 1 tablet by mouth 1x/day (evening) Glipizide 10 mg, 1 tablet by mouth 1x/day (lunch) Metformin 1,000 mg, 1 tablet by mouth 2x/day (breakfast and dinner) Lisinopril 20 mg , 1 tablet by mouth 1x/day (breakfast). 4). Please DO NOT take Catano and Norvasc. 5). Please take care and be well. - Date & Time of H&P Date of H&P: 02/08/18 Time of H&P: 17:55 Discharge Exam - Additional Findings Additional findings: Head Exam Head Exam: ATRAUMATIC, NORMAL INSPECTION, NORMOCEPHALIC - Eye Exam Eye Exam: EOMI, Normal appearance Pupil Exam: NORMAL ACCOMODATION - ENT Exam ENT Exam: Mucous Membranes Moist, Normal Exam - Neck Exam Neck Exam: Full ROM. absent: Tenderness, Thyromegaly - Respiratory Exam Respiratory Exam: Clear to Ausculation Bilateral, NORMAL BREATHING PATTERN. absent: Accessory Muscle Use, Chest Wall Tenderness - Cardiovascular Exam Cardiovascular Exam: REGULAR RHYTHM, +S1, +S2, Murmur. absent: Bradycardia, Tachycardia - GI/Abdominal Exam GI & Abdominal Exam: Soft, Normal Bowel Sounds. Central obesity therefore liver and spleen could not be palpated absent: Guarding, Tenderness - Extremities Exam Extremities Exam: Full ROM. absent: Pedal Edema Additional comments: Patient has resting tremor noted on extremities with prominent tremor noted on left upper extremity - Neurological Exam Neurological Exam: Awake, CN II-XII Intact. absent: Oriented x3 - Psychiatric Exam Psychiatric exam: flat Affect, Normal Mood - Skin Skin Exam: Dry, Intact, Normal Color, Warm Discharge Plan - Discharge Medications Prescriptions: RX: ARIPiprazole [Abilify] 10 mg PO HS #30 tab RX: Glipizide [Glucotrol] 10 mg PO DAILY #30 tablet RX: Lisinopril [Prinivil] 20 mg PO DAILY #30 tablet RX: MetFORMIN [glucoPHAGE] 1,000 mg PO BID #60 tab - Follow Up Plan Condition: GUARDED Disposition: HOME/ ROUTINE Instructions: Hyperkalemia (DC), Altered Mental Status (DC), Aripiprazole, Glipizide, Lisinopril, Metformin, Altered Mental Status (GEN) Additional Instructions: The following instructions will need to be printed for patient and he will need to bring with him to his appointment with his outpatient Psychiatrist: 1). Your appointment with Dr. Reynaldo Finley is for this Monday02/12/18 at 2: 30 PM. His office is located [address] [place] [address] [place] [address] and his office phone number is [phone]. 2). You have been set up for home visiting nurse and home physical therapy through [facility]. Through [facility] you will also be evaluated for the need for home health aid. The supervisor contact and service clerks from [facility] is Jessie GrewalCelestina Wang and her office number is [phone] and her cell phone number is [phone]. 3). The following prescriptions were sent to your pharmacy [facility] located at [address] [place] [address] in [place], [place] ([phone]). Please pick them up on your way home from the hospital and please take them as directed : Abilify 10 mg, 1 tablet by mouth 1x/day (evening) Glipizide 10 mg, 1 tablet by mouth 1x/day (lunch) Metformin 1,000 mg, 1 tablet by mouth 2x/day (breakfast and dinner) Lisinopril 20 mg , 1 tablet by mouth 1x/day (breakfast). 4). Please DO NOT take Catano and Norvasc. 5). Please take care and be well. Chacho Taylor D.O. <Chacho Taylor - Last Filed: 02/08/18 18:39> Provider - Provider Date of Admission: 02/04/18 21:10 Attending physician: Chacho Taylor MD Time Spent in preparation of Discharge (in minutes): 40 Hospital Course - Lab Results Lab Results: Most Recent Lab Values WBC 9.8 K/uL (4.8-10.8) 02/08/18 07:13 RBC 4.31 Mil/uL (4.40-5.90) L 02/08/18 07:13 Hgb 13.1 g/dL (12.0-18.0) 02/08/18 07:13 Hct 38.0 % (35.0-51.0) 02/08/18 07:13 MCV 88.4 fL (80.0-94.0) 02/08/18 07:13 MCH 30.4 pg (27.0-31.0) 02/08/18 07:13 MCHC 34.4 g/dL (33.0-37.0) 02/08/18 07:13 RDW 13.5 % (11.5-14.5) 02/08/18 07:13 Plt Count 198 K/uL (130-400) 02/08/18 07:13 MPV 8.9 fL (7.2-11.7) 02/08/18 07:13 Neut % (Auto) 67.8 % (50.0-75.0) 02/08/18 07:13 Lymph % (Auto) 19.7 % (20.0-40.0) L 02/08/18 07:13 [place] % (Auto) 9.4 % (0.0-10.0) 02/08/18 07:13 Eos % (Auto) 2.5 % (0.0-4.0) 02/08/18 07:13 Baso % (Auto) 0.6 % (0.0-2.0) 02/08/18 07:13 Neut # (Auto) 6.6 K/uL (1.8-7.0) 02/08/18 07:13 Lymph # (Auto) 1.9 K/uL (1.0-4.3) 02/08/18 07:13 [place] # (Auto) 0.9 K/uL (0.0-0.8) H 02/08/18 07:13 Eos # (Auto) 0.2 K/uL (0.0-0.7) 02/08/18 07:13 Baso # (Auto) 0.1 K/uL (0.0-0.2) 02/08/18 07:13 PT 11.6 SECONDS (9.7-12.2) 02/04/18 11:33 INR 1.1 02/04/18 11:33 APTT 35 SECONDS (21-34) H 02/04/18 11:33 Sodium 141 mmol/L (132-148) 02/08/18 07:13 Potassium 4.7 mmol/L (3.6-5.2) 02/08/18 07:13 Chloride 109 mmol/L (98-107) H 02/08/18 07:13 Carbon Dioxide 21 mmol/L (22-30) L 02/08/18 07:13 Anion Gap 16 (10-20) 02/08/18 07:13 BUN 21 mg/dL (9-20) H 02/08/18 07:13 Creatinine 1.0 mg/dL (0.8-1.5) 02/08/18 07:13 Est GFR ( Amer) > 60 02/08/18 07:13 Est GFR (Non-Af Amer) > 60 02/08/18 07:13 POC Glucose (mg/dL) 136 mg/dL (65-110) H 02/08/18 17:05 Random Glucose 125 mg/dL (75-110) H 02/08/18 07:13 Hemoglobin A1c 6.6 % (4.2-6.5) H 02/05/18 07:22 Calcium 9.5 mg/dl (8.6-10.4) 02/08/18 07:13 Phosphorus 3.8 mg/dL (2.5-4.5) 02/08/18 07:13 Magnesium 2.2 mg/dL (1.6-2.3) 02/08/18 07:13 Total Bilirubin 0.6 mg/dL (0.2-1.3) 02/08/18 07:13 AST 67 U/L (17-59) H 02/08/18 07:13 ALT 90 U/L (21-72) H 02/08/18 07:13 Alkaline Phosphatase 280 U/L (38-126) H 02/08/18 07:13 Ammonia 19 umol/L (9-33) 02/04/18 11:34 Troponin I < 0.0120 ng/mL (0.00-0.120) 02/04/18 11:33 Total Protein 7.7 g/dL (6.3-8.3) 02/08/18 07:13 Albumin 4.0 g/dL (3.5-5.0) 02/08/18 07:13 Globulin 3.6 gm/dL (2.2-3.9) 02/08/18 07:13 Albumin/Globulin Ratio 1.1 (1.0-2.1) 02/08/18 07:13 Free T4 1.18 ng/dL (0.78-2.19) 02/04/18 11:33 TSH 3rd Generation 0.37 mIU/L (0.46-4.68) L 02/04/18 11:33 Urine Color Straw (YELLOW) 02/04/18 12:40 Urine Clarity Clear (Clear) 02/04/18 12:40 Urine pH 6.0 (5.0-8.0) 02/04/18 12:40 Ur Specific [place] 1.011 (1.003-1.030) 02/04/18 12:40 Urine Protein Negative mg/dL (NEGATIVE) 02/04/18 12:40 Urine Glucose (UA) Normal mg/dL (Normal) 02/04/18 12:40 Urine Ketones Negative mg/dL (NEGATIVE) 02/04/18 12:40 Urine Blood Negative (NEGATIVE) 02/04/18 12:40 Urine Nitrate Negative (NEGATIVE) 02/04/18 12:40 Urine Bilirubin Negative (NEGATIVE) 02/04/18 12:40 Urine Urobilinogen Normal mg/dL (0.2-1.0) 02/04/18 12:40 Ur Leukocyte Esterase Neg Carlie/uL (Negative) 02/04/18 12:40 Urine WBC (Auto) 2 /hpf (0-5) 02/04/18 12:40 Ur Squamous Epith Cells < 1 /hpf (0-5) 02/04/18 12:40 Urine Osmolality 471 mosm/kg (300-1000) 02/05/18 19:49 Ur Random Sodium 148 mmol/L 02/05/18 19:49 Urine Opiates Screen Negative (NEGATIVE) 02/04/18 12:40 Urine Methadone Screen Negative (NEGATIVE) 02/04/18 12:40 Ur Barbiturates Screen Negative (NEGATIVE) 02/04/18 12:40 Ur Phencyclidine Scrn Negative (NEGATIVE) 02/04/18 12:40 Ur Amphetamines Screen Negative (NEGATIVE) 02/04/18 12:40 U Benzodiazepines Scrn Positive (NEGATIVE) 02/04/18 12:40 Catano 0.8 mmol/L (0.6-1.2) 02/08/18 07:13 U Oth Cocaine Metabols Negative (NEGATIVE) 02/04/18 12:40 U Cannabinoids Screen Negative (NEGATIVE) 02/04/18 12:40 Alcohol, Quantitative < 10 mg/dl (0-10) 02/04/18 11:33 Hepatitis A IgM Ab Negative (NEGATIVE) 02/05/18 07:22 Hep Bs Antigen Negative (NEGATIVE) 02/05/18 07:22 Hep B Core IgM Ab Negative (NEGATIVE) 02/05/18 07:22 Hepatitis C Antibody Negative (NEGATIVE) 02/05/18 07:22 Attending/Attestation - Attestation I have personally seen and examined this patient.: Yes I have fully participated in the care of the patient.: Yes I have reviewed all pertinent clinical information, including history, physical exam and plan: Yes Notes (Text): 02/08/18 18:37 Please also see my progress note. Notified by Nurse Zayda that Landlord refusing to pick patient up. Will speak with Retail Cashier in morning of 02/08/18 to call Landlord so that he may allow patient back into his apartment as patient does not have muhammad and to arrange for transportation. Chacho Taylor D.O.
[2018-02-08] MEDS: Enoxaparin 40 mg Syringe SC SCH (10:36)
[2018-02-08] MEDS: Pantoprazole 40 mg EC Tab PO SCH (10:36)
[2018-02-09] MEDS: (Novolin R) Insulin Human Regular 100 units/ml vial SC SCH ×4 (08:13→22:00)
[2018-02-09 09:06] LABS: BASO # 0.1 K/uL (0.0-0.2); BASO % 0.6 % (0.0-2.0); EOS # 0.3 K/uL (0.0-0.7); EOS % 3.6 % (0.0-4.0); HEMOGLOBIN 13.3 g/dL (12.0-18.0); LYMPH # 1.5 K/uL (1.0-4.3); LYMPH % 15.9 % (20.0-40.0); MEAN CELL VOLUME 88.6 fL (80.0-94.0); MEAN CORPUSCULAR HEMOGLOBIN 30.4 pg (27.0-31.0); MEAN CORPUSCULAR HGB CONC 34.4 g/dL (33.0-37.0); MEAN PLATELET VOLUME 8.8 fL (7.2-11.7); MONO # 0.9 K/uL (0.0-0.8); MONO % 9.6 % (0.0-10.0); NEUT # 6.8 K/uL (1.8-7.0); NEUT % 70.3 % (50.0-75.0); RBC 4.36 Mil/uL (4.40-5.90); RED CELL DISTRIBUTION WIDTH 13.1 % (11.5-14.5); WHITE BLOOD COUNT 9.6 K/uL (4.8-10.8)
[2018-02-09 09:16] LABS: ALT/SGPT 115 U/L (21-72); AST/SGOT 78 U/L (17-59); BLOOD UREA NITROGEN 26 mg/dL (9-20); CALCIUM 9.9 mg/dl (8.6-10.4); GFR AFRICAN-AMERICAN > 60; GFR NON-AFRICAN AMERICAN > 60
[2018-02-09] MEDS: Enoxaparin 40 mg Syringe SC SCH (09:54)
[2018-02-09] MEDS: Pantoprazole 40 mg EC Tab PO SCH (09:55)
--- NOTE | 2018-02-09 18:37 | CP.PCM.PCO ---
Physician Communication Note - Physician Communication Note Physician Communication Note: Please see above
--- NOTE | 2018-02-09 20:01 | CP.PCM.PN ---
Subjective - Date & Time of Evaluation Date of Evaluation: 02/09/18 Time of Evaluation: 07:40 - Subjective Subjective: Progress Note Patient seen and examined at bedside with attending. Patient seen by physical therapy and states patient needs AUSTEN. Patient currently feels that he does not need AUSTEN, but was shown the necessity due to the fact that he cannot walk on his own and needs maximum therapy due to inability to move on his own. Patient is more alert at bedside this morning and states his landlord came to see him yesterday and said he did not want to take responsibility for him since the patient lives in his basement for rent. Objective - Vital Signs/Intake and Output Vital Signs (last 24 hours): Temp Pulse Resp BP Pulse Ox 98.3 F 83 20 131/76 95 02/09/18 17:12 02/09/18 17:12 02/09/18 17:12 02/09/18 17:12 02/09/18 17:12 Intake and Output: 02/09/18 02/10/18 18:59 06:59 Intake Total 350 Balance 350 - Medications Medications: Current Medications Amlodipine Besylate (Norvasc) 10 mg PO DAILY [facility] Last Admin: 02/09/18 09:55 Dose: 10 mg Aripiprazole (Abilify) 10 mg PO HS [facility] Last Admin: 02/08/18 22:23 Dose: 10 mg Enoxaparin Sodium (Lovenox) 40 mg SC DAILY [facility] Last Admin: 02/09/18 09:54 Dose: 40 mg Insulin Human Regular (Novolin R) 0 unit SC [facility] PRN Reason: Protocol Last Admin: 02/09/18 16:06 Dose: Not Given Pantoprazole Sodium (Protonix Ec Tab) 40 mg PO DAILY [facility] Last Admin: 02/09/18 09:55 Dose: 40 mg - Labs Labs: 02/09/18 08:51 02/09/18 08:51 PT 11.6 SECONDS (9.7-12.2) 02/04/18 11:33 INR 1.1 02/04/18 11:33 APTT 35 SECONDS (21-34) H 02/04/18 11:33 - Additional Findings Additional findings: Head Exam Head Exam: ATRAUMATIC, NORMAL INSPECTION, NORMOCEPHALIC - Eye Exam Eye Exam: EOMI, Normal appearance Pupil Exam: NORMAL ACCOMODATION - ENT Exam ENT Exam: Mucous Membranes Moist, Normal Exam - Neck Exam Neck Exam: Full ROM. absent: Tenderness, Thyromegaly - Respiratory Exam Respiratory Exam: Clear to Ausculation Bilateral, NORMAL BREATHING PATTERN. absent: Accessory Muscle Use, Chest Wall Tenderness - Cardiovascular Exam Cardiovascular Exam: REGULAR RHYTHM, +S1, +S2, Murmur. absent: Bradycardia, Tachycardia - GI/Abdominal Exam GI & Abdominal Exam: Soft, Normal Bowel Sounds. Central obesity therefore liver and spleen could not be palpated absent: Guarding, Tenderness - Extremities Exam Extremities Exam: Full ROM. absent: Pedal Edema Additional comments: Patient has resting tremor noted on extremities with prominent tremor noted on left upper extremity - Neurological Exam Neurological Exam: Awake, CN II-XII Intact. absent: Oriented x3 - Psychiatric Exam Psychiatric exam: flat Affect, Normal Mood - Skin Skin Exam: Dry, Intact, Normal Color, Warm Assessment and Plan - Assessment and Plan (Free Text) Assessment: This is a 67 yo male with PMH bipolar disorder, HTN, DM, presents with with AMS and gait changes 1. Altered mental status -urine drug screen positive for Benzos -alcohol level negative -lithium level 2.6 on admission -EKG: no acute changes -CXR shows some mild cardiomegaly -echo: Left ventricular EF within normal range, LV diastolic function function, EF 75% -neuro consult. Dr. Salvador -head CT: no acute changes -Psych consult: Dr. John -fall precautions 2. Hx of bipolar -restart abilify 10 mg daily, hold lithium and benzos 02/06 Leach level downtrending but elevated 02/07 Leach level normal 02/06 Dr. Taylor called the office of Psychiatrist Dr. Reynaldo Finley [phone] and confirmed with Roxy there patient was last seen on 01/25/18 and was told to discontinue Leach and start Abilify. Appointment was made with Dr. Finley for Monday02/12/18 at 2:30 PM was made and Medicine Team will provide patient with his records prior to discharge. -monitor vitals 02/06 Dr. Taylor spoke with Dr. Euceda and we have ordered Seroquel 100 mg PO HS Seroquel 100mg PO HS, discontinued 02/07 due to former side effects ( hallucinations) 3. Diarrhea -f/u stool culture, not collected -f/u stool occult blood -f/u fecal leukocytes, not collected -f/u stool c diff, not collected 4. Hx of HTN Norvasc 10 mg PO QD 5. hx of DM -ISS -accucheck -hypoglycemia protocol -hold gabapentin 6. GI/DVT ppx -Lovenox 40 daily sc -Protonix PO 40 mg daily dispo: patient staying longer for AUSTEN placement and PT/OT daily. discussed with Dr. Chacho Choi, DO PGY1 The following instructions will need to be printed for patient and he will need to bring with him to his appointment with his outpatient Psychiatrist: 1). Your appointment with Dr. Reynaldo Finley is for this Monday02/12/18 at 2: 30 PM. will be rescheduled upon discharge due to patient staying longer for AUSTEN placement and PT/OT daily. His office is located [address] [place] [address] [place] [address] and his office phone number is [phone]. 2). You have been set up for home visiting nurse and home physical therapy through [facility]. Through [facility] you will also be evaluated for the need for home health aid. The personal lines underwriter from [facility] is Jessie Wang and her office number is [phone] and her cell phone number is [phone]. 3). The following prescriptions were sent to your pharmacy [facility] located at [address] [place] [address] in [place], [place] ([phone]). Please pick them up on your way home from the hospital and please take them as directed : Abilify 10 mg, 1 tablet by mouth 1x/day (evening) Glipizide 10 mg, 1 tablet by mouth 1x/day (lunch) Metformin 1,000 mg, 1 tablet by mouth 2x/day (breakfast and dinner) Lisinopril 20 mg , 1 tablet by mouth 1x/day (breakfast). 4). Please DO NOT take Leach and Norvasc. 5). Please take care and be well. Chacho Taylor D.O.
--- NOTE | 2018-02-09 20:30 | CP.PCM.PN ---
Addendum entered and electronically signed by Lu Wheat DO 02/10/18 17:22: Per psych will DC Abilify due to increased LFTs. Will be given Zyprexa 5mg PO tonight x 1 dose and then will be given Zyprexa 10mg PO HS daily after. Original Note: <Teodora Marte - Last Filed: 02/10/18 06:06> Subjective - Date & Time of Evaluation Date of Evaluation: 02/10/18 Time of Evaluation: 06:00 - Subjective Subjective: Medicine Progress Note: Patient seen and examined at bedside in the AM. Patient is more alert at bedside. Per nurse patient has had multiple episodes of watery diarrhea. Objective - Vital Signs/Intake and Output Vital Signs (last 24 hours): Temp Pulse Resp BP Pulse Ox 98.3 F 83 20 131/76 95 02/09/18 17:12 02/09/18 17:12 02/09/18 17:12 02/09/18 17:12 02/09/18 17:12 Intake and Output: 02/09/18 02/10/18 18:59 06:59 Intake Total 350 Balance 350 - Medications Medications: Current Medications Amlodipine Besylate (Norvasc) 10 mg PO DAILY [facility] Last Admin: 02/09/18 09:55 Dose: 10 mg Aripiprazole (Abilify) 10 mg PO HS [facility] Last Admin: 02/08/18 22:23 Dose: 10 mg Enoxaparin Sodium (Lovenox) 40 mg SC DAILY [facility] Last Admin: 02/09/18 09:54 Dose: 40 mg Insulin Human Regular (Novolin R) 0 unit SC [facility] PRN Reason: Protocol Last Admin: 02/09/18 16:06 Dose: Not Given Pantoprazole Sodium (Protonix Ec Tab) 40 mg PO DAILY [facility] Last Admin: 02/09/18 09:55 Dose: 40 mg - Labs Labs: 02/09/18 08:51 02/09/18 08:51 PT 11.6 SECONDS (9.7-12.2) 02/04/18 11:33 INR 1.1 02/04/18 11:33 APTT 35 SECONDS (21-34) H 02/04/18 11:33 - Head Exam Head Exam: ATRAUMATIC, NORMAL INSPECTION - Eye Exam Eye Exam: EOMI, Normal appearance - Respiratory Exam Respiratory Exam: Clear to Ausculation Bilateral, NORMAL BREATHING PATTERN - Cardiovascular Exam Cardiovascular Exam: REGULAR RHYTHM, +S1, +S2 - GI/Abdominal Exam GI & Abdominal Exam: Soft, Normal Bowel Sounds. absent: Tenderness - Extremities Exam Extremities Exam: Normal Inspection - Neurological Exam Neurological Exam: Awake. absent: Oriented x3 - Psychiatric Exam Psychiatric exam: Flat Affect - Skin Skin Exam: Normal Color Assessment and Plan - Assessment and Plan (Free Text) Assessment: 1. Altered mental status -urine drug screen positive for Benzos -alcohol level negative -lithium level 2.6 on admission -EKG: no acute changes -CXR shows some mild cardiomegaly -echo: Left ventricular EF within normal range, LV diastolic function function, EF 75% -neuro consult. Dr. Salvador -head CT: no acute changes -Psych consult: Dr. John -fall precautions 2. Hx of bipolar -restart abilify 10 mg daily, hold lithium and benzos 02/06 [place] level downtrending but elevated 02/07 [place] level normal 02/06 Dr. Taylor called the office of Psychiatrist Dr. Reynaldo Finley and confirmed with Roxy there patient was last seen on 01/25/18 and was told to discontinue [place] and start Abilify. Appointment was made with Dr. Finley for Monday02/12/18 at 2:30 PM was made and Medicine Team will provide patient with his records prior to discharge. -monitor vitals 02/06 Dr. Taylor spoke with Dr. Euceda and we have ordered Seroquel 100 mg PO HS Seroquel 100mg PO HS, discontinued 02/07 due to former side effects ( hallucinations) 3. Diarrhea -f/u stool culture, not collected -f/u stool occult blood -f/u fecal leukocytes, not collected -f/u stool c diff 4. Hx of HTN Norvasc 10 mg PO QD 5. hx of DM -ISS -accucheck -hypoglycemia protocol -hold gabapentin 6. GI/DVT ppx -Lovenox 40 daily sc -Protonix PO 40 mg daily Disposition: patient staying longer for [facility] placement and PT/OT daily. <Chacho Taylor - Last Filed: 02/10/18 18:46> Objective - Vital Signs/Intake and Output Vital Signs (last 24 hours): Temp Pulse Resp BP Pulse Ox 98.3 F 78 20 127/77 95 02/10/18 15:00 02/10/18 15:00 02/10/18 15:00 02/10/18 15:00 02/10/18 15:00 Intake and Output: 02/10/18 02/10/18 06:59 18:59 Intake Total 800 400 Output Total 1700 600 Balance -900 -200 - Medications Medications: Current Medications Amlodipine Besylate (Norvasc) 10 mg PO DAILY [facility] Last Admin: 02/10/18 09:02 Dose: 10 mg Enoxaparin Sodium (Lovenox) 40 mg SC DAILY [facility] Last Admin: 02/10/18 09:02 Dose: 40 mg Insulin Human Regular (Novolin R) 0 unit SC [facility] PRN Reason: Protocol Last Admin: 02/10/18 17:29 Dose: 2 unit Olanzapine (Zyprexa) 5 mg PO HS ONE Stop: 02/10/18 22:01 Olanzapine (Zyprexa) 10 mg PO HS [facility] Pantoprazole Sodium (Protonix Ec Tab) 40 mg PO DAILY [facility] Last Admin: 02/10/18 09:02 Dose: 40 mg - Labs Labs: 02/10/18 07:01 02/10/18 07:01 PT 11.6 SECONDS (9.7-12.2) 02/04/18 11:33 INR 1.1 02/04/18 11:33 APTT 35 SECONDS (21-34) H 02/04/18 11:33 Attending/Attestation - Attestation I have personally seen and examined this patient.: Yes I have fully participated in the care of the patient.: Yes I have reviewed all pertinent clinical information, including history, physical exam and plan: Yes Notes (Text): 02/10/18 18:31 Patient was seen and examined at 11:00 AM. Also on ROS: Had soft bowel movement earlier this morning. Patient continues to be more awake, alert, and oriented. Today he and I had a conversation the state of politics in the [place] and who we thought should run for president in the 2020 elections as well as the chances of the Democrats to improve their numbers in Congress. Although at times it took him a little time to respond and there was a slight stutter (this has also improved), his answers and questions to me were well thought out. However, it was noted that at times he repeated himself. Resting tremor still present in the bilateral UE but this also appears to be improved. Although he has agreed to go to [facility], his wish is still to be able to be strong enough to go home. I explained to him again, currently his Landlord with whom he lives has refused to pick him from the hospital. Also explained to him that I felt that [facility] was the best option for him as he still could not sit up or stand on his own. He expressed understanding Also on Assessment and Plan: Elevated LFTs: these were elevated upon admission. This could be secondary to the Abilify that the patient was taking consistently (this is what he told me) or not consistently (this is what he told Psychiatrist Dr. Euceda). Therefore Abilify was discontinued and he will be started on Zyprexa 5 mg tonight then starting tomorrow night Zyprexa 10 mg QHS. We can not use Seroquel as patient has stated that it has caused hallucinations and confusion in the past. He has also stated that he had unspecified issues with Geodon in the past. Hepatitis Panel is negative. HIV was reordered as it was never done. Medicine Team: please call his Psychiatrist Office Dr. Reynaldo Finley on Monday02/12/18 morning at [phone] to cancel patient's appointment that we scheduled for him for Monday02/12/18 at 2:30 PM. His office is located [address] [place] [address] [place] [address]. It should be explained to the office that we are arranging for [facility] and the rehab facility will call to reschedule appointment when he is ready for discharge from there. Chacho Taylor D.O.
[2018-02-10 07:06] LABS: BASO # 0.1 K/uL (0.0-0.2); BASO % 0.6 % (0.0-2.0); EOS # 0.5 K/uL (0.0-0.7); EOS % 4.1 % (0.0-4.0); HEMOGLOBIN 13.5 g/dL (12.0-18.0); LYMPH # 2.1 K/uL (1.0-4.3); MEAN CORPUSCULAR HEMOGLOBIN 30.5 pg (27.0-31.0); MEAN CORPUSCULAR HGB CONC 34.7 g/dL (33.0-37.0); MEAN PLATELET VOLUME 8.4 fL (7.2-11.7); MONO # 1.1 K/uL (0.0-0.8); MONO % 10.5 % (0.0-10.0); NEUT # 7.2 K/uL (1.8-7.0); NEUT % 65.8 % (50.0-75.0); RBC 4.42 Mil/uL (4.40-5.90); RED CELL DISTRIBUTION WIDTH 13.2 % (11.5-14.5)
[2018-02-10 07:25] LABS: ALT/SGPT 128 U/L (21-72); AST/SGOT 74 U/L (17-59); BLOOD UREA NITROGEN 28 mg/dL (9-20); CALCIUM 10.1 mg/dl (8.6-10.4); GFR AFRICAN-AMERICAN > 60; GFR NON-AFRICAN AMERICAN > 60
[2018-02-10] MEDS: (Novolin R) Insulin Human Regular 100 units/ml vial SC SCH ×4 (08:30→23:13)
[2018-02-10] MEDS: Pantoprazole 40 mg EC Tab PO SCH (09:02)
[2018-02-10] MEDS: Enoxaparin 40 mg Syringe SC SCH (09:02)
--- NOTE | 2018-02-10 22:04 | CP.PCM.PN ---
<EstuardoAntoinetteTeodora SCelestina - Last Filed: 02/11/18 07:14> Subjective - Date & Time of Evaluation Date of Evaluation: 02/11/18 Time of Evaluation: 06:00 - Subjective Subjective: Medicine Progress Note: Patient seen and examined at bedside in the AM. Patient is more alert at bedside. Patient denies any complaints. Objective - Vital Signs/Intake and Output Vital Signs (last 24 hours): Temp Pulse Resp BP Pulse Ox 98.3 F 78 20 127/77 95 02/10/18 15:00 02/10/18 15:00 02/10/18 15:00 02/10/18 15:00 02/10/18 15:00 Intake and Output: 02/10/18 02/11/18 18:59 06:59 Intake Total 400 Output Total 600 900 Balance -200 -900 - Medications Medications: Current Medications Amlodipine Besylate (Norvasc) 10 mg PO DAILY [facility] Last Admin: 02/10/18 09:02 Dose: 10 mg Enoxaparin Sodium (Lovenox) 40 mg SC DAILY [facility] Last Admin: 02/10/18 09:02 Dose: 40 mg Insulin Human Regular (Novolin R) 0 unit SC [facility] PRN Reason: Protocol Last Admin: 02/10/18 17:29 Dose: 2 unit Olanzapine (Zyprexa) [address] [facility] Pantoprazole Sodium (Protonix Ec Tab) 40 mg PO DAILY [facility] Last Admin: 02/10/18 09:02 Dose: 40 mg - Labs Labs: 02/10/18 07:01 02/10/18 07:01 PT 11.6 SECONDS (9.7-12.2) 02/04/18 11:33 INR 1.1 02/04/18 11:33 APTT 35 SECONDS (21-34) H 02/04/18 11:33 - Constitutional Appears: No Acute Distress - Head Exam Head Exam: ATRAUMATIC, NORMAL INSPECTION - Eye Exam Eye Exam: EOMI - ENT Exam ENT Exam: Mucous Membranes Moist - Respiratory Exam Respiratory Exam: Clear to Ausculation Bilateral, NORMAL BREATHING PATTERN - Cardiovascular Exam Cardiovascular Exam: REGULAR RHYTHM, +S1, +S2 - GI/Abdominal Exam GI & Abdominal Exam: Soft, Normal Bowel Sounds. absent: Tenderness - Extremities Exam Extremities Exam: Normal Inspection - Neurological Exam Neurological Exam: Awake. absent: Oriented x3 - Psychiatric Exam Psychiatric exam: Flat Affect - Skin Skin Exam: Normal Color Assessment and Plan - Assessment and Plan (Free Text) Assessment: 1. Altered mental status secondary to [place] Toxicity -urine drug screen positive for Benzos -alcohol level negative -lithium level 2.6 on admission -EKG: no acute changes -CXR shows some mild cardiomegaly -echo: Left ventricular EF within normal range, LV diastolic function function, EF 75% -neuro consult. Dr. Salvador -head CT: no acute changes -Psych consult: Dr. John -fall precautions 2. Hx of bipolar -Abilify will be discontinued due to increased LFTs. - Zyprexa 10mg PO HS daily started 02/10/18. 02/06 [place] level downtrending but elevated 02/07 [place] level normal 02/06 Dr. Taylor called the office of Psychiatrist Dr. Reynaldo Finley and confirmed with Roxy there patient was last seen on 01/25/18 and was told to discontinue [place] and start Abilify. Appointment was made with Dr. Finley for Monday02/12/18 at 2:30 PM was made and Medicine Team will provide patient with his records prior to discharge. -monitor vitals 02/06 Dr. Taylor spoke with Dr. Euceda and we have ordered Seroquel 100 mg PO HS Seroquel 100mg PO HS, discontinued 02/07 due to former side effects ( hallucinations) 3. Diarrhea -f/u stool culture, not collected -f/u stool occult blood -f/u fecal leukocytes, not collected -f/u stool c diff 4. Hx of HTN Norvasc 10 mg PO QD 5. Elevated Liver Enzymes possibly secondary to medications AST/ALT 74/332 -Continue to monitor 6. hx of DM -ISS -accucheck -hypoglycemia protocol -hold gabapentin 7. GI/DVT ppx -Lovenox 40 daily sc -Protonix PO 40 mg daily Disposition: patient staying longer for [facility] placement and PT/OT daily. <Chacho Taylor - Last Filed: 02/11/18 22:20> Objective - Vital Signs/Intake and Output Vital Signs (last 24 hours): Temp Pulse Resp BP Pulse Ox 98.1 F 80 20 147/77 95 02/11/18 16:18 02/11/18 16:18 02/11/18 16:18 02/11/18 16:18 02/11/18 16:18 Intake and Output: 02/11/18 02/12/18 18:59 06:59 Intake Total 520 Output Total 800 900 Balance -280 -900 - Medications Medications: Current Medications Dextrose (Dextrose 50% Inj) 0 ml IV STAT PRN; Protocol PRN Reason: Hypoglycemia Protocol Dextrose (Glutose 15) 0 gm PO ONCE PRN; Protocol PRN Reason: Hypoglycemia Protocol Enoxaparin Sodium (Lovenox) 40 mg SC DAILY [facility] Last Admin: 02/11/18 09:07 Dose: 40 mg Glucagon (Glucagen Diagnostic Kit) 0 mg IM STAT PRN; Protocol PRN Reason: Hypoglycemia Protocol Dextrose (Dextrose 5% In Water 1000 Ml) 1,000 mls @ 0 mls/hr IV .Q0M PRN; Protocol; Per Protocol PRN Reason: Hypoglycemia Protocol Insulin Human Regular (Novolin R) 0 unit SC [facility] PRN Reason: Protocol Last Admin: 02/11/18 17:19 Dose: Not Given Lisinopril (Zestril) 20 mg PO DAILY [facility] Metformin HCl (Glucophage) 1,000 mg PO BID [facility] Last Admin: 02/11/18 17:14 Dose: 1,000 mg Olanzapine (Zyprexa) 10 mg PO HS [facility] Last Admin: 02/11/18 21:27 Dose: 10 mg - Labs Labs: 02/11/18 07:25 02/11/18 07:25 PT 11.6 SECONDS (9.7-12.2) 02/04/18 11:33 INR 1.1 02/04/18 11:33 APTT 35 SECONDS (21-34) H 02/04/18 11:33 Attending/Attestation - Attestation I have personally seen and examined this patient.: Yes I have fully participated in the care of the patient.: Yes I have reviewed all pertinent clinical information, including history, physical exam and plan: Yes Notes (Text): 02/11/18 22:09 Patient was seen and examined at 9:45 AM. Also on ROS: Had soft bowel movement earlier this morning. Also on Exam: Noted to be able to get out of bed and chair without assistance and able to ambulate without difficulty Patient continues to be more awake, alert, and oriented. Resting tremor still present in the bilateral UE but this also appears to be improved. Also on Assessment and Plan: Elevated LFTs: these were elevated upon admission. This could be secondary to the Abilify that the patient was taking consistently (this is what he told me) or not consistently (this is what he told Psychiatrist Dr. Euceda). Therefore Abilify was discontinued and he will be started on Zyprexa 5 mg 02/10/18 then started Zyprexa 10 mg QHS 02/11/18. We can not use Seroquel as patient has stated that it has caused hallucinations and confusion in the past. He has also stated that he had unspecified issues with Geodon in the past. Hepatitis Panel is negative. HIV was reordered as it was never done. Hx DM 2: restarted Metformin 1,000 mg PO 2x/day (breakfast and dinner). We can' t use statin for cardiovascular protection at this time due to the elevated LFTs. He is already on YAQUELIN I for renal protection. Hx HTN: discontinued the Norvasc and started Lisinopril 20 mg PO 1x/day He found his keys to his apartment. These keys were placed inside front pocket of his brown shirt that is in a bag next to his bed Resting tremor still present in the bilateral UE but this also appears to be improved. Patient is requesting to go home instead to [facility]. As his ambulation has improved and he now has his keys to his apartment, his wishes should be honored. I spoke with [facility] Pin Drafter Operator Jessie Wang (cell # [phone]) 02/11/18 and she will try to arrange again Home PT, Home Visiting Nurse, and Home Delivery Driver/Customer Service evaluation for patient on 02/12/18. Medicine Team: please speak with Fabric Separator Operator [place] on 02/12/18 and arrange for transportation to his home after making sure that Jessie Wang has set up home care for patient and after 30 day supply of his current medications are provided to patient. This should be done prior to noon so that patient can make his 2:30 PM appointment with Psychiatrist Reynaldo Finley ([address] [place] [address] [place] [address] and office number [phone]). Patient is to bring his discharge paperwork with him to Dr. Finley's appointment. Chacho Taylor D.O.
[2018-02-11 07:34] LABS: BASO # 0.1 K/uL (0.0-0.2); BASO % 0.6 % (0.0-2.0); EOS # 0.4 K/uL (0.0-0.7); EOS % 3.6 % (0.0-4.0); LYMPH # 1.9 K/uL (1.0-4.3); LYMPH % 18.9 % (20.0-40.0); MEAN CELL VOLUME 88.9 fL (80.0-94.0); MEAN CORPUSCULAR HEMOGLOBIN 30.6 pg (27.0-31.0); MEAN CORPUSCULAR HGB CONC 34.4 g/dL (33.0-37.0); MEAN PLATELET VOLUME 8.7 fL (7.2-11.7); MONO # 0.9 K/uL (0.0-0.8); MONO % 8.9 % (0.0-10.0); NEUT # 6.9 K/uL (1.8-7.0); RBC 4.24 Mil/uL (4.40-5.90); RED CELL DISTRIBUTION WIDTH 13.4 % (11.5-14.5); WHITE BLOOD COUNT 10.1 K/uL (4.8-10.8)
[2018-02-11] MEDS: (Novolin R) Insulin Human Regular 100 units/ml vial SC SCH ×4 (07:46→22:19)
[2018-02-11 08:05] LABS: ALB/GLOB RATIO 1.1 (1.0-2.1); ALBUMIN 3.9 g/dL (3.5-5.0); ALT/SGPT 128 U/L (21-72); AST/SGOT 82 U/L (17-59); BLOOD UREA NITROGEN 27 mg/dL (9-20); CALCIUM 9.6 mg/dl (8.6-10.4); GFR AFRICAN-AMERICAN > 60; GFR NON-AFRICAN AMERICAN > 60
[2018-02-11] MEDS: Enoxaparin 40 mg Syringe SC SCH (09:07)
[2018-02-11] MEDS: Pantoprazole 40 mg EC Tab PO SCH (09:07)
[2018-02-11] MEDS ORDERED: Glucagon Recombinant 1 mg Inj IM PRN (10:03)
[2018-02-11] MEDS ORDERED: Dextrose 50% SYRINGE Inj (50 ml) IV PRN (10:03)
[2018-02-11 16:19] VITALS: RESP 20; TEMP 98.1
[2018-02-12 01:27] VITALS: O2SAT 97
[2018-02-12 07:18] LABS: BASO % 0.4 % (0.0-2.0); EOS # 0.3 K/uL (0.0-0.7); EOS % 3.6 % (0.0-4.0); HEMOGLOBIN 12.7 g/dL (12.0-18.0); LYMPH # 2.1 K/uL (1.0-4.3); LYMPH % 21.5 % (20.0-40.0); MEAN CELL VOLUME 88.3 fL (80.0-94.0); MEAN CORPUSCULAR HEMOGLOBIN 30.2 pg (27.0-31.0); MEAN CORPUSCULAR HGB CONC 34.2 g/dL (33.0-37.0); MEAN PLATELET VOLUME 8.7 fL (7.2-11.7); MONO # 0.9 K/uL (0.0-0.8); MONO % 9.1 % (0.0-10.0); NEUT # 6.3 K/uL (1.8-7.0); NEUT % 65.4 % (50.0-75.0); RBC 4.19 Mil/uL (4.40-5.90); RED CELL DISTRIBUTION WIDTH 13.2 % (11.5-14.5); WHITE BLOOD COUNT 9.7 K/uL (4.8-10.8)
[2018-02-12 07:25] LABS: ALBUMIN 3.7 g/dL (3.5-5.0); ALT/SGPT 132 U/L (21-72); AST/SGOT 81 U/L (17-59); BLOOD UREA NITROGEN 26 mg/dL (9-20); CALCIUM 9.4 mg/dl (8.6-10.4); GFR AFRICAN-AMERICAN > 60; GFR NON-AFRICAN AMERICAN > 60
--- NOTE | 2018-02-12 07:44 | CP.PCM.DIS ---
<Daniela Arellano V - Last Filed: 02/12/18 09:49> Provider - Provider Date of Admission: 02/04/18 21:10 Attending physician: Daniela Arellano, [facility] - Lab Results Lab Results: Most Recent Lab Values WBC 9.7 K/uL (4.8-10.8) 02/12/18 06:59 RBC 4.19 Mil/uL (4.40-5.90) L 02/12/18 06:59 Hgb 12.7 g/dL (12.0-18.0) 02/12/18 06:59 Hct 37.0 % (35.0-51.0) 02/12/18 06:59 MCV 88.3 fL (80.0-94.0) 02/12/18 06:59 MCH 30.2 pg (27.0-31.0) 02/12/18 06:59 MCHC 34.2 g/dL (33.0-37.0) 02/12/18 06:59 RDW 13.2 % (11.5-14.5) 02/12/18 06:59 Plt Count 207 K/uL (130-400) 02/12/18 06:59 MPV 8.7 fL (7.2-11.7) 02/12/18 06:59 Neut % (Auto) 65.4 % (50.0-75.0) 02/12/18 06:59 Lymph % (Auto) 21.5 % (20.0-40.0) 02/12/18 06:59 [place] % (Auto) 9.1 % (0.0-10.0) 02/12/18 06:59 Eos % (Auto) 3.6 % (0.0-4.0) 02/12/18 06:59 Baso % (Auto) 0.4 % (0.0-2.0) 02/12/18 06:59 Neut # (Auto) 6.3 K/uL (1.8-7.0) 02/12/18 06:59 Lymph # (Auto) 2.1 K/uL (1.0-4.3) 02/12/18 06:59 [place] # (Auto) 0.9 K/uL (0.0-0.8) H 05/21/18 06:59 Eos # (Auto) 0.3 K/uL (0.0-0.7) 02/12/18 06:59 Baso # (Auto) 0.0 K/uL (0.0-0.2) 02/12/18 06:59 PT 11.6 SECONDS (9.7-12.2) 02/04/18 11:33 INR 1.1 02/04/18 11:33 APTT 35 SECONDS (21-34) H 02/04/18 11:33 Sodium 141 mmol/L (132-148) 02/12/18 06:59 Potassium 4.1 mmol/L (3.6-5.2) 02/12/18 06:59 Chloride 107 mmol/L (98-107) 02/12/18 06:59 Carbon Dioxide 23 mmol/L (22-30) 02/12/18 06:59 Anion Gap 15 (10-20) 02/12/18 06:59 BUN 26 mg/dL (9-20) H 02/12/18 06:59 Creatinine 1.0 mg/dL (0.8-1.5) 02/12/18 06:59 Est GFR ( Amer) > 60 02/12/18 06:59 Est GFR (Non-Af Amer) > 60 02/12/18 06:59 POC Glucose (mg/dL) 203 mg/dL (65-110) H 02/11/18 11:39 Random Glucose 148 mg/dL (75-110) H 02/12/18 06:59 Hemoglobin A1c 6.6 % (4.2-6.5) H 02/05/18 07:22 Calcium 9.4 mg/dl (8.6-10.4) 02/12/18 06:59 Phosphorus 3.4 mg/dL (2.5-4.5) 02/12/18 06:59 Magnesium 2.1 mg/dL (1.6-2.3) 02/12/18 06:59 Total Bilirubin 0.4 mg/dL (0.2-1.3) 02/12/18 06:59 AST 81 U/L (17-59) H 02/12/18 06:59 ALT 132 U/L (21-72) H 02/12/18 06:59 Alkaline Phosphatase 332 U/L (38-126) H 02/12/18 06:59 Ammonia 19 umol/L (9-33) 02/04/18 11:34 Troponin I < 0.0120 ng/mL (0.00-0.120) 02/04/18 11:33 Total Protein 7.4 g/dL (6.3-8.3) 02/12/18 06:59 Albumin 3.7 g/dL (3.5-5.0) 02/12/18 06:59 Globulin 3.7 gm/dL (2.2-3.9) 02/12/18 06:59 Albumin/Globulin Ratio 1.0 (1.0-2.1) 02/12/18 06:59 Free T4 1.18 ng/dL (0.78-2.19) 02/04/18 11:33 TSH 3rd Generation 0.37 mIU/L (0.46-4.68) L 02/04/18 11:33 Urine Color Straw (YELLOW) 02/04/18 12:40 Urine Clarity Clear (Clear) 02/04/18 12:40 Urine pH 6.0 (5.0-8.0) 02/04/18 12:40 Ur Specific [place] 1.011 (1.003-1.030) 02/04/18 12:40 Urine Protein Negative mg/dL (NEGATIVE) 02/04/18 12:40 Urine Glucose (UA) Normal mg/dL (Normal) 02/04/18 12:40 Urine Ketones Negative mg/dL (NEGATIVE) 02/04/18 12:40 Urine Blood Negative (NEGATIVE) 02/04/18 12:40 Urine Nitrate Negative (NEGATIVE) 02/04/18 12:40 Urine Bilirubin Negative (NEGATIVE) 02/04/18 12:40 Urine Urobilinogen Normal mg/dL (0.2-1.0) 02/04/18 12:40 Ur Leukocyte Esterase Neg Carlie/uL (Negative) 02/04/18 12:40 Urine WBC (Auto) 2 /hpf (0-5) 02/04/18 12:40 Ur Squamous Epith Cells < 1 /hpf (0-5) 02/04/18 12:40 Urine Osmolality 471 mosm/kg (300-1000) 02/05/18 19:49 Ur Random Sodium 148 mmol/L 02/05/18 19:49 Urine Opiates Screen Negative (NEGATIVE) 02/04/18 12:40 Urine Methadone Screen Negative (NEGATIVE) 02/04/18 12:40 Ur Barbiturates Screen Negative (NEGATIVE) 02/04/18 12:40 Ur Phencyclidine Scrn Negative (NEGATIVE) 02/04/18 12:40 Ur Amphetamines Screen Negative (NEGATIVE) 02/04/18 12:40 U Benzodiazepines Scrn Positive (NEGATIVE) 02/04/18 12:40 [place] < 0.2 mmol/L (0.6-1.2) L 02/12/18 06:59 U Oth Cocaine Metabols Negative (NEGATIVE) 02/04/18 12:40 U Cannabinoids Screen Negative (NEGATIVE) 02/04/18 12:40 Alcohol, Quantitative < 10 mg/dl (0-10) 02/04/18 11:33 Hepatitis A IgM Ab Negative (NEGATIVE) 02/05/18 07:22 Hep Bs Antigen Negative (NEGATIVE) 02/05/18 07:22 Hep B Core IgM Ab Negative (NEGATIVE) 02/05/18 07:22 Hepatitis C Antibody Negative (NEGATIVE) 02/05/18 07:22 Discharge Plan - Discharge Medications Prescriptions: Glipizide [Glucotrol] 10 mg PO DAILY #30 tablet Lisinopril [Prinivil] 20 mg PO DAILY #30 tablet MetFORMIN [glucoPHAGE] 1,000 mg PO BID #60 tab OLANZapine [Zyprexa] 10 mg PO HS #30 tab - Follow Up Plan Condition: FAIR Disposition: HOME/ ROUTINE Instructions: Hyperkalemia (DC), Altered Mental Status (DC), Aripiprazole, Glipizide, Lisinopril, Metformin, Altered Mental Status (GEN) Additional Instructions: The following instructions will need to be printed for patient and he will need to bring with him to his appointment with his outpatient Psychiatrist: 1). Your appointment with Dr. Reynaldo Finley is for this Monday02/12/18 at 2: 30 PM. His office is located [address] [place] [address] [place] [address] and his office phone number is [phone]. 2). You have been set up for home visiting nurse and home physical therapy through [facility]. Through [facility] you will also be evaluated for the need for home health aid. The personal finance instructor from [facility] is Jessie Wang and her office number is [phone] and her cell phone number is [phone]. 3). The following prescriptions were sent to your pharmacy [facility] located at [address] [place] [address] in [place], [place] ([phone]). Please pick them up on your way home from the hospital and please take them as directed : Zyprexa 10 mg, 1 tablet by mouth 1x/day (evening) Glipizide 10 mg, 1 tablet by mouth 1x/day (lunch) Metformin 1,000 mg, 1 tablet by mouth 2x/day (breakfast and dinner) Lisinopril 20 mg , 1 tablet by mouth 1x/day (breakfast). 4). Please DO NOT take [place] and Norvasc. 5). Please take care and be well. I spoke with [facility] Dock Associate Jessie Wang (cell # [phone]) 02/11/18 and she will try to arrange again Home PT, Home Visiting Nurse, and Home Housekeeper Nanny evaluation for patient on 02/12/18. Medicine Team: please speak with Surveyor Hydrographic Carlo on 02/12/18 and arrange for transportation to his home after making sure that Jessie Wang has set up home care for patient and after 30 day supply of his current medications are provided to patient. This should be done prior to noon so that patient can make his 2:30 PM appointment with Psychiatrist Reynaldo Finley ([address] [place] [address] [place] [address] and office number [phone]). Patient is to bring his discharge paperwork with him to Dr. Finley's appointment. Attending/Attestation - Attestation I have personally seen and examined this patient.: Yes I have fully participated in the care of the patient.: Yes I have reviewed all pertinent clinical information, including history, physical exam and plan: Yes Notes (Text): Patient seen, examined and case discussed with day-time resident. Patient seen at bedside this morning. Patient tolerated breakfast this morning. Patient's tremor has subsided. Patient is awake, alert, oriented X3, no acute distress. Patient denies acute complaints. Patient is requesting to go home. Patient lives in the basement of his apartment. I have spoken with outpatient case manager this morning, who will speak with Bianka in regards for discharge planning today and will follow-up to see if patient is eligible for [facility] to take psychiatry appointment today at 2pm. I have discussed medication changes with the patient during hospitalization and urged him to re-establish care with his primary care doctor for the repeat liver function tests since there were elevated during hospitalization. Discharge diagnoses: 1) Lisinopril 20mg PO daily (30 tabs/0) 2) Metformin 1000mg PO BID (60 tabs/0) 3) Glipizide 10mg PO daily (30tabs/0) 4) Zyprexa 10mg PO daily (30 tabs/0) Discontinue: 1) Norvasc 10mg PO daily 2) [place] discontinued secondary to lithium toxicity 3) Abilify discontinued secondary to LFTS This is a summary of patient's hospitalization. Please refer to EMR for full body of record. Discharge Diagnoses 1. Altered mental status secondary to [place] Toxicity-->stable * Psych consult: Dr. Euceda on consult-->help appreciated * Nephrology consult: Dr Hancock on consult-->help appreciated * urine drug screen positive for Benzos; elevated lithium which as now as subtherapeutic levels * alcohol level negative * lithium level 2.6 on admission * EKG: no acute changes * CXR shows some mild cardiomegaly * echo: Left ventricular EF within normal range, LV diastolic function function , EF 75% 2. Hx of bipolar disorder * During hospitalization, Abilify will be discontinued due to increased LFTs per recommendation of psych and started on Zyprexa 10mg PO HS daily started 02/10. Patient has pending with office of Psychiatrist Dr. Reynaldo Finley at 2pm today. Patient has been off [place] since day of admission and not taking Seroquel secondary to side effect of hallucinations 3. Diarrhea-->resolved * no complaints of diarrhea; having soft bowel movements 4. Hx of HTN-->chronic * Lisinopril 20mg PO daily * Norvasc was discontinued during hospitalization 5. Elevated Liver Enzymes-->stable * likely drug induced * Hepatitis panel is negative. * Abilify was discontinued secondary to rise in LFTS * Patient recommended to follow-up with his PMD to repeat blood work for LFTS to see if they normalize 6. hx of DM-->chronic * A1c: 6.6 * ISS * accucheck * hypoglycemia protocol * hold gabapentin * Metformin 1000mg PO BID * Glipizide 10mg PO daily 7. GI/DVT ppx * Lovenox 40 daily sc daily * Protonix PO 40 mg daily <Alia Choi - Last Filed: 02/12/18 09:55> Provider - Provider Date of Admission: 02/04/18 21:10 Attending physician: Chacho Taylor MD Consults: Dr. Euceda Time Spent in preparation of Discharge (in minutes): 35 Hospital Course - Lab Results Lab Results: Most Recent Lab Values WBC 9.7 K/uL (4.8-10.8) 02/12/18 06:59 RBC 4.19 Mil/uL (4.40-5.90) L 02/12/18 06:59 Hgb 12.7 g/dL (12.0-18.0) 02/12/18 06:59 Hct 37.0 % (35.0-51.0) 02/12/18 06:59 MCV 88.3 fL (80.0-94.0) 02/12/18 06:59 MCH 30.2 pg (27.0-31.0) 02/12/18 06:59 MCHC 34.2 g/dL (33.0-37.0) 02/12/18 06:59 RDW 13.2 % (11.5-14.5) 02/12/18 06:59 Plt Count 207 K/uL (130-400) 02/12/18 06:59 MPV 8.7 fL (7.2-11.7) 02/12/18 06:59 Neut % (Auto) 65.4 % (50.0-75.0) 02/12/18 06:59 Lymph % (Auto) 21.5 % (20.0-40.0) 02/12/18 06:59 [place] % (Auto) 9.1 % (0.0-10.0) 02/12/18 06:59 Eos % (Auto) 3.6 % (0.0-4.0) 02/12/18 06:59 Baso % (Auto) 0.4 % (0.0-2.0) 02/12/18 06:59 Neut # (Auto) 6.3 K/uL (1.8-7.0) 02/12/18 06:59 Lymph # (Auto) 2.1 K/uL (1.0-4.3) 02/12/18 06:59 [place] # (Auto) 0.9 K/uL (0.0-0.8) H 02/12/18 06:59 Eos # (Auto) 0.3 K/uL (0.0-0.7) 02/12/18 06:59 Baso # (Auto) 0.0 K/uL (0.0-0.2) 02/12/18 06:59 PT 11.6 SECONDS (9.7-12.2) 02/04/18 11:33 INR 1.1 02/04/18 11:33 APTT 35 SECONDS (21-34) H 02/04/18 11:33 Sodium 141 mmol/L (132-148) 02/12/18 06:59 Potassium 4.1 mmol/L (3.6-5.2) 02/12/18 06:59 Chloride 107 mmol/L (98-107) 02/12/18 06:59 Carbon Dioxide 23 mmol/L (22-30) 02/12/18 06:59 Anion Gap 15 (10-20) 02/12/18 06:59 BUN 26 mg/dL (9-20) H 02/12/18 06:59 Creatinine 1.0 mg/dL (0.8-1.5) 02/12/18 06:59 Est GFR ( Amer) > 60 02/12/18 06:59 Est GFR (Non-Af Amer) > 60 02/12/18 06:59 POC Glucose (mg/dL) 203 mg/dL (65-110) H 02/11/18 11:39 Random Glucose 148 mg/dL (75-110) H 02/12/18 06:59 Hemoglobin A1c 6.6 % (4.2-6.5) H 02/05/18 07:22 Calcium 9.4 mg/dl (8.6-10.4) 02/12/18 06:59 Phosphorus 3.4 mg/dL (2.5-4.5) 02/12/18 06:59 Magnesium 2.1 mg/dL (1.6-2.3) 02/12/18 06:59 Total Bilirubin 0.4 mg/dL (0.2-1.3) 02/12/18 06:59 AST 81 U/L (17-59) H 02/12/18 06:59 ALT 132 U/L (21-72) H 02/12/18 06:59 Alkaline Phosphatase 332 U/L (38-126) H 02/12/18 06:59 Ammonia 19 umol/L (9-33) 02/04/18 11:34 Troponin I < 0.0120 ng/mL (0.00-0.120) 02/04/18 11:33 Total Protein 7.4 g/dL (6.3-8.3) 02/12/18 06:59 Albumin 3.7 g/dL (3.5-5.0) 02/12/18 06:59 Globulin 3.7 gm/dL (2.2-3.9) 02/12/18 06:59 Albumin/Globulin Ratio 1.0 (1.0-2.1) 02/12/18 06:59 Free T4 1.18 ng/dL (0.78-2.19) 02/04/18 11:33 TSH 3rd Generation 0.37 mIU/L (0.46-4.68) L 02/04/18 11:33 Urine Color Straw (YELLOW) 02/04/18 12:40 Urine Clarity Clear (Clear) 02/04/18 12:40 Urine pH 6.0 (5.0-8.0) 02/04/18 12:40 Ur Specific [place] 1.011 (1.003-1.030) 02/04/18 12:40 Urine Protein Negative mg/dL (NEGATIVE) 02/04/18 12:40 Urine Glucose (UA) Normal mg/dL (Normal) 02/04/18 12:40 Urine Ketones Negative mg/dL (NEGATIVE) 02/04/18 12:40 Urine Blood Negative (NEGATIVE) 02/04/18 12:40 Urine Nitrate Negative (NEGATIVE) 02/04/18 12:40 Urine Bilirubin Negative (NEGATIVE) 02/04/18 12:40 Urine Urobilinogen Normal mg/dL (0.2-1.0) 02/04/18 12:40 Ur Leukocyte Esterase Neg Carlie/uL (Negative) 02/04/18 12:40 Urine WBC (Auto) 2 /hpf (0-5) 02/04/18 12:40 Ur Squamous Epith Cells < 1 /hpf (0-5) 02/04/18 12:40 Urine Osmolality 471 mosm/kg (300-1000) 02/05/18 19:49 Ur Random Sodium 148 mmol/L 02/05/18 19:49 Urine Opiates Screen Negative (NEGATIVE) 02/04/18 12:40 Urine Methadone Screen Negative (NEGATIVE) 02/04/18 12:40 Ur Barbiturates Screen Negative (NEGATIVE) 02/04/18 12:40 Ur Phencyclidine Scrn Negative (NEGATIVE) 02/04/18 12:40 Ur Amphetamines Screen Negative (NEGATIVE) 02/04/18 12:40 U Benzodiazepines Scrn Positive (NEGATIVE) 02/04/18 12:40 [place] < 0.2 mmol/L (0.6-1.2) L 02/12/18 06:59 U Oth Cocaine Metabols Negative (NEGATIVE) 02/04/18 12:40 U Cannabinoids Screen Negative (NEGATIVE) 02/04/18 12:40 Alcohol, Quantitative < 10 mg/dl (0-10) 02/04/18 11:33 Hepatitis A IgM Ab Negative (NEGATIVE) 02/05/18 07:22 Hep Bs Antigen Negative (NEGATIVE) 02/05/18 07:22 Hep B Core IgM Ab Negative (NEGATIVE) 02/05/18 07:22 Hepatitis C Antibody Negative (NEGATIVE) 02/05/18 07:22 - Hospital Course Hospital Course: HPI This is a 67 yo male with history of bipolar disorder, DM, HTN, paranoid behavior presenting to [facility] ER today with altered mental status. Pt was brought in by his landlord who saw him acting strangely. Pt has been falling at home and has been unable to cook for himself. Pt is poor historian and is unable to provide detailed answers to questions. Pt also has long standing tremor. He takes lithium but cannot say how much or last time refilled. He denies pain, fevers, chills, vomiting, diarrhea. He reports past hx of alcoholism but says his last drink was 10 years ago. He denies drug use. Hospital Course Patient was seen at bedside during his stay by neurology, physical therapy, and psychiatry. CT head negative CXR cardiomegaly ECHO: EF 75%, normal LV diastolic function Patient's lithium level was elevated at 2.6, downtrending throughout stay. 02/08 on discharge is 0.8. Patient states he had d soft diarrhea, will follow up if continues as outpatient with GI and primary care doctor. Patient was given abilify 10mg QD, discontinued 02/11 due to continually elevated LFTs seroquel 100mg was ordered 02/06, patient was drowsy the next day and stated seroquel had given him hallucinations in the past >300mg Seroquel 200mg was ordered 02/[address] Euceda. Patient was seen by physical therapy who recommended [facility]. Patient refused [facility] and stated he was okay with home services, and home physical therapy. social security benefits interviewer was able to set up home services. Please see below. LFts were were elevated upon admission, which was likely secondary to the Abilify that the patient was taking consistently (this is what he told Dr. Chacho Taylor) or not consistently (this is what he told Psychiatrist Dr. Euceda) . Therefore Abilify was discontinued and he will be started on Zyprexa 5 mg 02/10 then started Zyprexa 10 mg QHS 02/11/18. We can not use Seroquel as patient has stated that it has caused hallucinations and confusion in the past. Patient also stated that he had unspecified issues with Geodon in the past. Hepatitis Panel is negative. HIV was reordered as it was never done. Patient discharged, able to speak well, medically stable, for home physical therapy and visiting nurse services Hx DM 2: restarted Metformin 1,000 mg PO 2x/day (breakfast and dinner). We can' t use statin for cardiovascular protection at this time due to the elevated LFTs. Patient is on ACEI for renal protection. Hx HTN: discontinued the Norvasc and started Lisinopril 20 mg PO QD He found his keys to his apartment. These keys were placed inside front pocket of his brown shirt that is in a bag next to his bed Resting tremor still present in the bilateral UE but this also appears to be improved. Patient is requesting to go home instead to [facility]. As his ambulation has improved and he now has his keys to his apartment, patient is to be sent home. Dr. Chacho Taylor spoke with [facility] Dock Associate Jessie Wang (cell # [phone]) 02/11/18 and she will try to arrange again Home PT, Home Visiting Nurse, and Home Housekeeper Nanny evaluation for patient on 02/12/18. Dr. Arellano spoke with Surveyor Hydrographic Carlo on 02/12/18 to arrange for transportation to his home after making sure that Jessie Wang has set up home care for patient and after 30 day supply of his current medications are provided to patient. Patient discharged prior noon so that patient can make his 2:30 PM appointment with Psychiatrist Reynaldo Finley ([address] [place] [address] [place] [address] and office number [phone]). Patient is to bring his discharge paperwork with him to Dr. Finley's appointment. - Date & Time of H&P Date of H&P: 02/12/18 Time of H&P: 07:44 Discharge Exam - Head Exam Head Exam: ATRAUMATIC, NORMAL INSPECTION - Eye Exam Eye Exam: EOMI, Normal appearance - ENT Exam ENT Exam: Mucous Membranes Moist, Normal Exam - Neck Exam Neck exam: Full Rom, Normal Inspection - Respiratory Exam Respiratory Exam: NORMAL BREATHING PATTERN, UNREMARKABLE. absent: Accessory Muscle Use, Clear to PA & Lateral - Cardiovascular Exam Cardiovascular Exam: REGULAR RHYTHM, +S1, +S2. absent: Bradycardia, Tachycardia - GI/Abdominal Exam GI & Abdominal Exam: Soft. absent: Tenderness, Unremarkable - Extremities Exam Extremities exam: full ROM, normal capillary refill - Neurological Exam Neurological exam: Alert, CN II-XII Intact, Reflexes Normal - Psychiatric Exam Psychiatric exam: Normal Affect, Normal Mood - Skin Skin Exam: Intact, Normal Color, Pallor, Warm
[2018-02-12] MEDS: (Novolin R) Insulin Human Regular 100 units/ml vial SC SCH ×2 (08:48→12:55)
[2018-02-12] MEDS: Enoxaparin 40 mg Syringe SC SCH (09:41)
[2018-02-12 13:26] VITALS: BP 143/73; PULSE 68
== END 2018-02-12 13:42 | disposition home health service (06) | DRG 948 ==
LOC: C.ER 10:48 → C.9E 14:11 → UNDOADMOB 14:11 → C.9E 14:11 → INTOOBSV 14:11 → C.9E 15:01 → C.3T 15:01 → C.9E 16:06 → C.3T 16:06 → C.9E 16:06 → C.6T 16:17 → INTOOBSV 21:10 → OBSVTOIN 21:10
PROVIDERS: ADMIT Hospitalist; ATTEND Hospitalist
DX: R41.82 Altered mental status, unspecified (principal); E87.0 Hyperosmolality and hypernatremia; N17.9 Acute kidney failure, unspecified; F31.9 Bipolar disorder, unspecified; T43.595A Adverse effect of other antipsychotics and neuroleptics, initial encounter; E11.9 Type 2 diabetes mellitus without complications; E66.9 Obesity, unspecified; E86.0 Dehydration; F22 Delusional disorders; F41.9 Anxiety disorder, unspecified; G25.0 Essential tremor; I11.9 Hypertensive heart disease without heart failure; R74.8 Abnormal levels of other serum enzymes; Z79.84 Long term (current) use of oral hypoglycemic drugs; Z79.899 Other long term (current) drug therapy; Z68.31 Body mass index [BMI] 31.0-31.9, adult

== ENCOUNTER 2018-03-14 04:30 | Emergency (ER) | payer MEDICARE, MEDICAID ==
[2018-03-14 04:30] VITALS: BMI 31.6
[2018-03-14 04:40] VITALS: BP 110/70; PULSE 76; RESP 14; TEMP 99.1; O2SAT 99
[2018-03-14] MEDS ORDERED: Tdap Vaccine 0.5 ml Vial (10-64 yrs) IM ONE ×2 (04:56→05:06)
--- NOTE | 2018-03-14 04:59 | C.PDOC ---
History Of Present Illness 67 year old male presents to the ER requesting a tetanus shot. Patient states he was walking around [place] yesterday at approximately noon when a medium sized dog jumped off a porch, ran up to him, and bit his left thumb. Patient reports the dog had a collar on but is unaware of the dogs vaccination status and did not think to ask the dentist/owner about it. Patient cleaned the wound at home, however, he woke up this morning realizing he is not up to date with tetanus which prompted visit. Denies weakness, numbness, or other injury. Time Seen by Provider: 03/14/18 04:52 Chief Complaint (Nursing): Bite History Per: Patient History/Exam Limitations: no limitations Onset/Duration Of Symptoms: Hrs Current Symptoms Are (Timing): Still Present Location Of Injury: Left: Hand (Thumb) Quality Of Symptoms: Other (Bite) Recent travel outside of the [facility]: No - Animal Bite Description Of The Attack: Unprovoked Attack Description Of The Animal: Unknown Reports Animal Appears: Well Reports Animal's Immunization Status: Unknown Animal Control Notified: No Past Medical History Reviewed: Historical Data, Nursing Documentation, Vital Signs Vital Signs: Last Vital Signs Temp 99.1 F 03/14/18 04:37 Pulse 76 03/14/18 04:37 Resp 14 03/14/18 04:37 BP 110/70 03/14/18 04:37 Pulse Ox 99 03/14/18 05:22 - Medical History PMH: Bipolar Disorder (?), Diabetes, HTN - [facility] Procedures CLOSURE SKIN & SUBCUTANEOUS NEC (12/28/03) PSYCHIAT DRUG THERAP NEC (09/22/04) TETANUS TOXOID ADMINIST (12/28/03) Family History: States: Unknown Family Hx - Social History Hx Tobacco Use: No Hx Alcohol Use: Yes Hx Substance Use: No Review Of Systems Skin: Positive for: Other (Bite) Neurological: Negative for: Weakness, Numbness Physical Exam - Physical Exam Appears: Non-toxic, No Acute Distress Skin: Warm, Dry Head: Atraumatic, Normacephalic Eye(s): bilateral: Normal Inspection Extremity: Normal ROM (x4), Capillary Refill (<2 seconds), Other (Superficial punctate wound to dorsal left thumb. No bleeding, erythema, or discharge.) Pulses: Left Radial: Normal, Right Radial: Normal Neurological/Psych: Oriented x3, Normal Speech, Normal Motor, Normal Sensation ED Course And Treatment O2 Sat by Pulse Oximetry: 99 (room air) Pulse Ox Interpretation: Normal Medical Decision Making Medical Decision Making: Patient bitten by a pet dog, and unknown of vaccination status. Animal appeared to be well kept and was not provoked. Based on history and exam, I do not recommend rabies prophlaxis at this time as the animal in question is domestic pet dog. I advised patient to contact the dentist/owner to verify status. Tetanus vaccination and clindamycin administered. Patient given proper wound care instructions, Rx for antibiotics, and advised to follow up with PMD or return if there are any signs of infection. Disposition Counseled Patient/Family Regarding: Diagnosis, Need For Followup, Rx Given - Disposition Disposition: HOME/ ROUTINE Disposition Time: 04:57 Condition: STABLE Additional Instructions: Keep area clean and dry. May wash gently with soap and water. Change dressing 1- 2 times daily. Return to ER if fever occurs, redness or swelling around wound, pus in the wound. Prescriptions: Clindamycin [Cleocin] 300 mg PO TID #21 cap Instructions: Animal Bites (DC) Forms: [employer] (Mauritian) - POA Present On Arrival: None - Clinical Impression Clinical Impression: Animal bite wound - PA / JAVA DEVELOPER ARCHITECT / Resident Statement MD/DO has reviewed & agrees with the documentation as recorded. - Scribe Statement The provider has reviewed the documentation as recorded by the Scribjose Gutierrez All medical record entries made by the Scribe were at my direction and personally dictated by me. I have reviewed the chart and agree that the record accurately reflects my personal performance of the history, physical exam, medical decision making, and the department course for this patient. I have also personally directed, reviewed, and agree with the discharge instructions and disposition.
== END 2018-03-14 05:17 | disposition home or self-care (01) ==
LOC: C.ER 04:30
DX: S61.052A Open bite of left thumb without damage to nail, initial encounter (principal); W54.0XXA Bitten by dog, initial encounter; Y93.01 Activity, walking, marching and hiking

== ENCOUNTER 2018-04-03 18:30 | Inpatient (IN) | payer MEDICARE, MEDICAID ==
[2018-04-03 18:31] VITALS: BMI 31.6
--- NOTE | 2018-04-03 19:45 | C.PDOC ---
History Of Present Illness Patient brought in by jaime after he noticed patient has been acting strange and bizarre. Patient been not been eating and has been increasingly confused. Unable to obtain Hx from patient. Time Seen by Provider: 04/03/18 19:25 Chief Complaint (Nursing): Altered Mental Status History Per: Other ([place]) History/Exam Limitations: Clinical Condition Onset/Duration Of Symptoms: Days Onset Of Symptoms: Cannot Confirm Onset Current Symptoms Are (Timing): Still Present Usual Baseline: Alert Oriented Exacerbating Factor(s): Unknown Use Of Anticoag/Antiplatelets: Unknown Speech Is: Normal Severity: Moderate Pain Scale Rating Of: 4 Recent travel outside of the [place]: No Associated Symptoms: Disoriented, Confused, Trouble Concentrating Past Medical History Reviewed: Historical Data, Nursing Documentation, Vital Signs Vital Signs: Last Vital Signs Temp 98.7 F 04/03/18 18:48 Pulse 62 04/03/18 22:27 Resp 14 04/03/18 22:27 BP 146/71 04/03/18 22:27 Pulse Ox 100 04/03/18 22:27 - Medical History PMH: Bipolar Disorder ((from previous triage)), Diabetes, HTN ((from previous triage)) - [facility] Procedures CLOSURE SKIN & SUBCUTANEOUS NEC (12/28/03) PSYCHIAT DRUG THERAP NEC (09/22/04) TETANUS TOXOID ADMINIST (12/28/03) Family History: States: No Known Family Hx - Social History Hx Tobacco Use: No Hx Alcohol Use: No (unknown) Hx Substance Use: No (unknown) Review Of Systems Review Of Systems: ROS cannot be obtained secondary to pt's inabilty to answer questions. Physical Exam - Physical Exam Appears: Confused, Other (No evidence of trauma) Skin: Warm, Dry Head: Normacephalic Eye(s): bilateral: Normal Inspection Oral Mucosa: Dry Neck: Trachea Midline, Supple Chest: Symmetrical, No Tenderness Cardiovascular: Rhythm Regular Respiratory: No Rales, No Rhonchi, No Wheezing Gastrointestinal/Abdominal: Soft, No Tenderness Back: Normal Inspection Extremity: No Tenderness, Other (Moves all extremities) Extremity: Bilateral: Atraumatic, Normal Color And Temperature, Normal ROM Pulses: Left Dorsalis Pedis: Normal, Right Dorsalis Pedis: Normal Neurological/Psych: No Normal Cognition Disoriented To: Place, Time, Situation Gait: With Assistance ED Course And Treatment - Laboratory Results Result Diagrams: 04/03/18 19:53 04/03/18 19:53 ECG: Interpreted By Me, Viewed By Me ECG Rhythm: Sinus Rhythm (69), Nonspecific Changes (lad) O2 Sat by Pulse Oximetry: 100 (Room air) Pulse Ox Interpretation: Normal - Radiology CXR: Interpreted by Me, Viewed By Me CXR Interpretation: No: Infiltrates, Fracture, Pnemothorax Progress Note: Blood work, CXR, EKG, CT head, and urinalysis ordered. IV fluids administered. Disposition Discussed With Dr.: Monet Taylor Comment: acceptd the pt on his service and took over the care at 10:28 PM Doctor Will See Patient In The: Hospital Counseled Patient/Family Regarding: Studies Performed, Diagnosis - Disposition Disposition: HOSPITALIZED Disposition Time: 19:55 Condition: FAIR Forms: [facility] (Estonian) - POA Present On Arrival: Poor Glycemic Control - Clinical Impression Clinical Impression: Change in mental state, Hyperglycemia - Scribe Statement The provider has reviewed the documentation as recorded by the Scribe Jose A Gutierrez All medical record entries made by the Scribe were at my direction and personally dictated by me. I have reviewed the chart and agree that the record accurately reflects my personal performance of the history, physical exam, medical decision making, and the department course for this patient. I have also personally directed, reviewed, and agree with the discharge instructions and disposition. Decision To Admit - Pt Status Changed To: Hospital Disposition Of: Inpatient - Admit Certification Admit to Inpatient:: After my assessment, the patient will require hospitalization for at least two midnights. This is because of the severity of symptoms shown, intensity of services needed, and/or the medical risk in this patient being treated as an outpatient. - InPatient: Physician Admission Certification:: After my assessment, the patient will require hospitalization for at least two midnights. This is because of the severity of symptoms shown, intensity of services needed, and/or the medical risk in this patient being treated as an outpatient. - . Bed Request Type: Regular Admitting Physician: Monet Taylor Patient Diagnosis: Change in mental state, Hyperglycemia
[2018-04-03] MEDS: Sodium Chloride 0.9% 1,000 ML IV SCH (20:00)
[2018-04-03 20:06] LABS: ABG ALLEN TEST POS; ARTERIAL BLOOD GAS HCO3 24.6 mmol/L (21-28); ARTERIAL BLOOD GAS O2 SAT 98.5 % (95-98); ARTERIAL BLOOD GAS PCO2 23 mm/Hg (35-45); ARTERIAL BLOOD GAS PH 7.55 (7.35-7.45); ARTERIAL BLOOD GAS PO2 116 mm/Hg (80-100); ARTERIAL BLOOD GAS TCO2 20.8 mmol/L (22-28)
[2018-04-03 20:10] LABS: BASO # 0.1 K/uL (0.0-0.2); BASO % 0.9 % (0.0-2.0); EOS # 0.1 K/uL (0.0-0.7); HEMOGLOBIN 13.3 g/dL (12.0-18.0); LYMPH # 2.3 K/uL (1.0-4.3); LYMPH % 26.3 % (20.0-40.0); MEAN CELL VOLUME 84.4 fL (80.0-94.0); MEAN CORPUSCULAR HEMOGLOBIN 28.4 pg (27.0-31.0); MEAN CORPUSCULAR HGB CONC 33.6 g/dL (33.0-37.0); MONO # 0.7 K/uL (0.0-0.8); MONO % 7.8 % (0.0-10.0); NEUT # 5.6 K/uL (1.8-7.0); NRBC % 0.1 % (0.0-2.0); RBC 4.68 Mil/uL (4.40-5.90); RED CELL DISTRIBUTION WIDTH 13.7 % (11.5-14.5); WHITE BLOOD COUNT 8.7 K/uL (4.8-10.8)
[2018-04-03 20:15] LABS: INR 1.3; PROTHROMBIN TIME 14.6 SECONDS (9.7-12.2)
[2018-04-03 20:21] LABS: ALB/GLOB RATIO 1.4 (1.0-2.1); ALBUMIN 4.6 g/dL (3.5-5.0); ALT/SGPT 91 U/L (21-72); AST/SGOT 71 U/L (17-59); BLOOD UREA NITROGEN 43 mg/dL (9-20); CALCIUM 9.5 mg/dl (8.6-10.4); GFR AFRICAN-AMERICAN > 60; GFR NON-AFRICAN AMERICAN > 60; LIPASE 221 U/L (23-300)
[2018-04-03 20:35] LABS: B-TYPE NATRIURETIC PEPTIDE 289 pg/mL (0-900)
[2018-04-04 03:07] LABS: CK-MB 1.62 ng/mL (0.0-3.38)
[2018-04-04] MEDS: Sodium Chloride 0.9% 1,000 ML IV SCH ×3 (03:50→16:07)
--- NOTE | 2018-04-04 06:59 | CT ---
Date of service: 04/03/2018 PROCEDURE: CT HEAD WITHOUT CONTRAST. HISTORY: R/O Bleed COMPARISON: 02/04/2018 TECHNIQUE: Axial computed tomography images were obtained through the head/brain without intravenous contrast. Radiation dose: Total exam DLP = 1040 mGy-cm. This CT exam was performed using one or more of the following dose reduction techniques: Automated exposure control, adjustment of the mA and/or kV according to patient size, and/or use of iterative reconstruction technique. FINDINGS: HEMORRHAGE: No intracranial hemorrhage. BRAIN: Cerebral and cerebellar atrophy. Periventricular low density changes suggest small vessel ischemic change. Again identified is a small focal hypodensity at the level of the right transverse sinus on series 4, image 17. This measures approximately 5 millimeters. This may represent some volume averaging with the adjacent gyri. Correlation with MRI and or MRV may be helpful for further evaluation. This is not significantly changed since the prior study dated 02/04/2018. Clinical correlation. VENTRICLES: Unremarkable. No hydrocephalus. CALVARIUM: Unremarkable. PARANASAL SINUSES: Retention cyst and or polyp in the right maxillary sinus. MASTOID AIR CELLS: Unremarkable as visualized. No inflammatory changes. OTHER FINDINGS: None. IMPRESSION: Again identified is a small focal hypodensity at the level of the right transverse sinus on series 4, image 17. This measures approximately 5 millimeters. This may represent some volume averaging with the adjacent gyri. Correlation with MRI and or MRV may be helpful for further evaluation. This is not significantly changed since the prior study dated 02/04/2018. Clinical correlation. Cerebral and cerebellar atrophy. Chronic microvascular ischemic change. Sinus mucosal disease. These findings were preliminarily reported at 8:43 p.m. 04/03/[address] Mihai Torres from [facility] [place].
--- NOTE | 2018-04-04 07:41 | CP.PCM.CON ---
History of Present Illness - History of Present Illness History of Present Illness: CONSULT DICTATED TOXIC ENCEPHALOPATHY WITH DEHYDRATION ??? IC PATHOLOGY EEG HYDRATION PSYCHIATRY EVAL Past Patient History - Infectious Disease Hx of Infectious Diseases: None - Tetanus Immunizations Tetanus Immunization: Unknown - Past Medical History & Family History Past Medical History?: Yes - Past Social History Smoking Status: Never Smoked - CARDIAC Hx Cardiac Disorders: Yes Hx Hypertension: Yes ((from previous triage)) - PULMONARY Hx Respiratory Disorders: No - NEUROLOGICAL Hx Neurological Disorder: No - HEENT Hx HEENT Problems: No - RENAL Hx Chronic Kidney Disease: No - ENDOCRINE/METABOLIC Hx Endocrine Disorders: Yes Hx Diabetes Mellitus Type 2: Yes ((from previous triage)) - HEMATOLOGICAL/ONCOLOGICAL Hx Blood Disorders: No - INTEGUMENTARY Hx Dermatological Problems: No - MUSCULOSKELETAL/RHEUMATOLOGICAL Hx Musculoskeletal Disorders: Yes Hx Falls: Yes - GASTROINTESTINAL Hx Gastrointestinal Disorders: No - GENITOURINARY/GYNECOLOGICAL Hx Genitourinary Disorders: No - PSYCHIATRIC Hx Substance Use: No - SURGICAL HISTORY Hx Surgeries: No - ANESTHESIA Hx Anesthesia: No (unknown, pt unable to recall) Meds Allergies/Adverse Reactions: Allergies Allergy/AdvReac Type Severity Reaction Status Date / Time Penicillins Allergy Verified 03/14/18 04:41 - Medications Medications: Current Medications Aspirin (Aspirin) 325 mg PO DAILY [facility] Enoxaparin Sodium (Lovenox) 40 mg SC DAILY [facility] Sodium Chloride (Sodium Chloride 0.9%) 1,000 mls @ 100 mls/hr IV .Q10H [facility] Last Admin: 04/04/18 03:50 Dose: 100 mls/hr Pantoprazole Sodium (Protonix Ec Tab) 40 mg PO DAILY [facility] Results - Vital Signs Recent Vital Signs: Last Vital Signs Temp 98.0 F 04/04/18 01:11 Pulse 47 L 04/04/18 01:39 Resp 20 04/04/18 01:11 BP 153/70 H 04/04/18 01:11 Pulse Ox 100 04/04/18 01:11 - Labs Result Diagrams: 04/03/18 19:53 04/03/18 19:53 Labs: Laboratory Results - last 24 hr 04/03/18 04/03/18 04/03/18 18:53 19:53 19:53 WBC 8.7 RBC 4.68 Hgb 13.3 Hct 39.5 MCV 84.4 D MCH 28.4 MCHC 33.6 RDW 13.7 Plt Count 182 MPV 9.0 Neut % (Auto) 64.0 Lymph % (Auto) 26.3 [place] % (Auto) 7.8 Eos % (Auto) 1.0 Baso % (Auto) 0.9 Neut # (Auto) 5.6 Lymph # (Auto) 2.3 [place] # (Auto) 0.7 Eos # (Auto) 0.1 Baso # (Auto) 0.1 PT 14.6 H INR 1.3 APTT 31 Puncture Site pCO2 pO2 HCO3 ABG pH ABG Total CO2 ABG O2 Saturation ABG Base Excess Fitz Test ABG Potassium A-a O2 Difference Respiratory Index Glucose Lactate FiO2 Sodium Potassium Chloride Carbon Dioxide Anion Gap BUN Creatinine Est GFR ( Amer) Est GFR (Non-Af Amer) POC Glucose (mg/dL) 268 H Random Glucose Calcium Magnesium Total Bilirubin AST ALT Alkaline Phosphatase Total Creatine Kinase CK-MB (Mass) Troponin I NT-Pro-B Natriuret Pep Total Protein Albumin Globulin Albumin/Globulin Ratio Lipase Arterial Blood Potassium [place] B-Hydroxybutyrate 04/03/18 04/03/18 04/03/18 19:53 20:00 21:47 WBC RBC Hgb Hct MCV MCH MCHC RDW Plt Count MPV Neut % (Auto) Lymph % (Auto) [place] % (Auto) Eos % (Auto) Baso % (Auto) Neut # (Auto) Lymph # (Auto) [place] # (Auto) Eos # (Auto) Baso # (Auto) PT INR APTT Puncture Site Rra pCO2 23 L pO2 116 H HCO3 24.6 ABG pH 7.55 H ABG Total CO2 20.8 L ABG O2 Saturation 98.5 H ABG Base Excess -0.5 Fitz Test Pos ABG Potassium 3.4 L A-a O2 Difference 5.0 Respiratory Index 0 Glucose 246 H Lactate 1.8 FiO2 21.0 Sodium 142 141.0 Potassium 3.9 Chloride 107 111.0 H Carbon Dioxide 22 Anion Gap 17 BUN 43 H Creatinine 1.2 Est GFR ( Amer) > 60 Est GFR (Non-Af Amer) > 60 POC Glucose (mg/dL) Random Glucose 254 H Calcium 9.5 Magnesium 2.2 Total Bilirubin 0.9 AST 71 H ALT 91 H D Alkaline Phosphatase 219 H D Total Creatine Kinase CK-MB (Mass) Troponin I < 0.0120 NT-Pro-B Natriuret Pep 289 Total Protein 7.8 Albumin 4.6 Globulin 3.2 Albumin/Globulin Ratio 1.4 Lipase 221 Arterial Blood Potassium 3.4 L Silvana < 0.2 L B-Hydroxybutyrate 0.14 04/04/18 04/04/18 02:21 06:14 WBC RBC Hgb Hct MCV MCH MCHC RDW Plt Count MPV Neut % (Auto) Lymph % (Auto) [place] % (Auto) Eos % (Auto) Baso % (Auto) Neut # (Auto) Lymph # (Auto) [place] # (Auto) Eos # (Auto) Baso # (Auto) PT INR APTT Puncture Site pCO2 pO2 HCO3 ABG pH ABG Total CO2 ABG O2 Saturation ABG Base Excess Fitz Test ABG Potassium A-a O2 Difference Respiratory Index Glucose Lactate FiO2 Sodium Potassium Chloride Carbon Dioxide Anion Gap BUN Creatinine Est GFR ( Amer) Est GFR (Non-Af Amer) POC Glucose (mg/dL) 143 H Random Glucose Calcium Magnesium Total Bilirubin AST ALT Alkaline Phosphatase Total Creatine Kinase 76 CK-MB (Mass) 1.62 Troponin I < 0.0120 NT-Pro-B Natriuret Pep Total Protein Albumin Globulin Albumin/Globulin Ratio Lipase Arterial Blood Potassium Silvana B-Hydroxybutyrate
[2018-04-04] MEDS: Pantoprazole 40 mg EC Tab PO SCH (09:31)
[2018-04-04] MEDS: Enoxaparin 40 mg Syringe SC SCH (09:31)
[2018-04-04 09:33] LABS: FREE T4 1.46 ng/dL (0.78-2.19)
--- NOTE | 2018-04-04 10:03 | RAD ---
Date of service: 04/03/2018 PROCEDURE: CHEST RADIOGRAPH, 1 VIEW HISTORY: SOB COMPARISON: 02/04/2018 FINDINGS: LUNGS: Clear. PLEURA: No pneumothorax or pleural fluid seen. CARDIOVASCULAR: No radiographic findings to suggest acute or significant cardiovascular disease. OSSEOUS STRUCTURES: No significant abnormalities. VISUALIZED UPPER ABDOMEN: Normal. OTHER FINDINGS: None. IMPRESSION: No active disease. No acute/significant interval changes. Concordant results with the preliminary interpretation rendered by the emergency department physician procedure.
[2018-04-04 10:25] LABS: FOLATE 13.3 ng/mL
--- NOTE | 2018-04-04 11:27 | MRI ---
Date of service: 04/04/2018 PROCEDURE: MRI BRAIN WITHOUT CONTRAST HISTORY: intra cranial vascular vs structural path COMPARISON: Noncontrast head CT from 04/03/2018 TECHNIQUE: Multiplanar, multisequence MR images of the brain were obtained without intravenous contrast enhancement. FINDINGS: HEMORRHAGE: None DWI: No evidence of an acute or early subacute infarction. BRAIN PARENCHYMA: Examination is of suboptimal diagnostic quality due to patient motion. Allowing for this, there is no mass, mass effect or abnormal extra-axial fluid collection. The midline sagittal structures are normal. VENTRICLES: There is moderate age-related global parenchymal volume loss and proportionate enlargement of the ventricles and cortical sulci. CRANIUM: There is normal bone marrow signal pattern. ORBITS: Grossly unremarkable. PARANASAL SINUSES/MASTOIDS: Small retention cyst/polyp in the right inferior maxillary sinus, the remaining included paranasal sinuses are predominantly clear. There is a trace right mastoid effusion. The left mastoid air cells are clear. VASCULAR SYSTEM: There are normal signal voids in the larger intracranial arteries. OTHER FINDINGS: None. IMPRESSION: Suboptimal diagnostic quality due to patient motion. Allowing for this, no acute intracranial abnormality. Moderate age-related global parenchymal volume loss.
[2018-04-04 11:37] LABS: PROLACTIN 11.3 ng/mL (3.7-17.9)
--- NOTE | 2018-04-04 11:59 | CON ---
DATE: 04/04/2018 TIME OF EVALUATION: 7:05 a.m. NEUROLOGICAL PROBLEM: Change in mental status. CHIEF COMPLAINT: The patient was brought in by his landlord with history of change in behavior with confusion. From neurological point of view, I was called into evaluate him for further management. HISTORY OF PRESENT ILLNESS: The patient is a 67-year-old right-handed male who had been admitted last month with similar complaints and has been sent home, following workup and psychiatric evaluation as per the nurse. He was brought in again with similar complaints. No history of loss of consciousness. No history of fall. No history of head trauma. No history of involuntary movements. The patient was behaving confused with his landlord that brought him to the hospital for further evaluation. The patient carries a long history of bipolar disorder and depression, has been on medication and noncompliant with medication. As per him, he could not able to recall the medications name as well. PERSONAL HISTORY: He denies smoking or alcohol use. ALLERGIES: ALLERGIES TO PENICILLIN. REVIEW OF SYSTEMS: A 12-point system has been reviewed. From neuro, change in mental status. MEDICATIONS: By history, Zyprexa, metformin,, Glucotrol. PHYSICAL EXAMINATION: VITAL SIGNS: Blood pressure 153/70, mean artery pressure of 97, respiratory rate 18, temperature 98 degrees Fahrenheit, pulse rate 53. NECK: Supple. No carotid bruits. HEART: Sounds are regular. CHEST: Fair air entry. EXTREMITIES: Poorly maintained hygiene. NEUROLOGIC EXAMINATION: The patient is awake, alert, and oriented to person. He does not know the month. He knows the president. He follows one-step command, mild right and left confusion. Speech is clear. Naming is intact. Cranial nerve examination: Respond to visual threat. Pupils reactive to light. Extraocular movement markedly decreased in all directions. No facial sensory deficit. No facial asymmetry noted. Tongue is dry. Motor examination: Outstretched hand with eyes closed, no drift noted. No asterixis. Distal muscle atrophy noted. Both pronounced in his feet than his hands. Strength is equal in all four extremities. Deep tendon reflexes are grossly absent. Plantars are downgoing. Sensory examination: Distal sensory motor neuropathy. Coordination: [id number] test is intact. LABORATORY DATA: Workup, CT of the head reviewed, no acute pathology is noted. Blood workup: WBC 8.7, hemoglobin 13.3, hematocrit 39.5, platelet 182. PT 14.6, INR 1.3, PTT 31. Sodium 142, potassium 3.9, chloride 107, bicarbonate 22, BUN 43, creatinine 1.2, glucose 143, calcium 9.5, AST 71, ALT 21, alkaline phosphatase 219. [place] was less than 0.2. CONCLUSION: The patient has been presenting with change in mental status which is probably all related to his toxic encephalopathy versus metabolic encephalopathy secondary to dehydration. However, his depression remains the same. He needs psychiatric input to adjust the medication. The patient should be benefited with social service evaluation for proper placement and better treatment. The patient is scheduled to have MRI of the brain to rule out any structural cause. Proper hydration. The patient should be get out of the bed. Physical therapy may be benefited for him for better ambulation. Diabetic control. 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 The patient will be followed while he is in the hospital. Ghanshyam Camacho MD MTDD
--- NOTE | 2018-04-04 20:27 | CP.PCM.CON ---
History of Present Illness - History of Present Illness History of Present Illness: 67 yo male with psychiatric h/o, was brought for evaluation to . Patient does not know the reasons for admission. Denies chest pain, dyspnea, palpitatations, diaphoresis, exertional symptoms at baseline. Non-smoker, no FH CAD Review of Systems - Review of Systems Review of Systems: all others negative except HPI Past Patient History - Infectious Disease Hx of Infectious Diseases: None - Tetanus Immunizations Tetanus Immunization: Unknown - Past Medical History & Family History Past Medical History?: Yes - Past Social History Smoking Status: Never Smoked - CARDIAC Hx Cardiac Disorders: Yes Hx Hypertension: Yes ((from previous triage)) - PULMONARY Hx Respiratory Disorders: No - NEUROLOGICAL Hx Neurological Disorder: No - HEENT Hx HEENT Problems: No - RENAL Hx Chronic Kidney Disease: No - ENDOCRINE/METABOLIC Hx Endocrine Disorders: Yes Hx Diabetes Mellitus Type 2: Yes ((from previous triage)) - HEMATOLOGICAL/ONCOLOGICAL Hx Blood Disorders: No - INTEGUMENTARY Hx Dermatological Problems: No - MUSCULOSKELETAL/RHEUMATOLOGICAL Hx Musculoskeletal Disorders: Yes Hx Falls: Yes - GASTROINTESTINAL Hx Gastrointestinal Disorders: No - GENITOURINARY/GYNECOLOGICAL Hx Genitourinary Disorders: No - PSYCHIATRIC Hx Substance Use: No - SURGICAL HISTORY Hx Surgeries: No - ANESTHESIA Hx Anesthesia: No (unknown, pt unable to recall) Meds Allergies/Adverse Reactions: Allergies Allergy/AdvReac Type Severity Reaction Status Date / Time haloperidol [From Haldol] Allergy ANAPHYLAXIS Verified 04/04/18 15:24 Penicillins Allergy ANAPHYLAXIS Verified 04/04/18 15:24 - Medications Medications: Current Medications Aspirin (Aspirin) 325 mg PO DAILY [facility] Last Admin: 04/04/18 09:31 Dose: 325 mg Enoxaparin Sodium (Lovenox) 40 mg SC DAILY [facility] Last Admin: 04/04/18 09:31 Dose: 40 mg Sodium Chloride (Sodium Chloride 0.9%) 1,000 mls @ 100 mls/hr IV .Q10H [facility] Last Admin: 04/04/18 16:07 Dose: 100 mls/hr Olanzapine (Zyprexa) 10 mg PO HS [facility] Pantoprazole Sodium (Protonix Ec Tab) 40 mg PO DAILY [facility] Last Admin: 04/04/18 09:31 Dose: 40 mg Physical Exam - Constitutional Appears: Unkempt - Head Exam Head Exam: NORMOCEPHALIC - ENT Exam ENT Exam: Mucous Membranes Moist - Respiratory Exam Respiratory Exam: Clear to Auscultation Bilateral, NORMAL BREATHING PATTERN - Cardiovascular Exam Cardiovascular Exam: REGULAR RHYTHM, RRR, +S1, +S2. absent: JVD, Systolic Murmur - GI/Abdominal Exam GI & Abdominal Exam: Soft. absent: Tenderness - Neurological Exam Neurological exam: CN II-XII Intact - Psychiatric Exam Psychiatric exam: Normal Mood - Skin Skin Exam: Warm Results - Vital Signs Recent Vital Signs: Last Vital Signs Temp 98.1 F 04/04/18 16:03 Pulse 70 04/04/18 18:00 Resp 20 04/04/18 16:03 BP 156/71 H 04/04/18 16:03 Pulse Ox 98 04/04/18 16:03 - Labs Result Diagrams: 04/03/18 19:53 04/03/18 19:53 Labs: Laboratory Results - last 24 hr 04/03/18 04/03/18 04/04/18 19:53 21:47 02:21 ESR POC Glucose (mg/dL) [place] Total Creatine Kinase 76 CK-MB (Mass) 1.62 Troponin I < 0.0120 < 0.0120 NT-Pro-B Natriuret Pep 289 Vitamin B12 Folate Homocysteine Free T4 TSH 3rd Generation Prolactin [place] < 0.2 L B-Hydroxybutyrate 0.14 RPR 04/04/18 04/04/18 04/04/18 06:14 08:49 08:49 ESR 39 H POC Glucose (mg/dL) 143 H [place] < 9 L Total Creatine Kinase CK-MB (Mass) Troponin I NT-Pro-B Natriuret Pep Vitamin B12 Folate Homocysteine Free T4 TSH 3rd Generation Prolactin [place] B-Hydroxybutyrate RPR 04/04/18 04/04/18 04/04/18 08:49 08:49 08:49 ESR POC Glucose (mg/dL) [place] Total Creatine Kinase CK-MB (Mass) Troponin I NT-Pro-B Natriuret Pep Vitamin B12 885 Folate 13.3 Homocysteine 11.7 Free T4 1.46 TSH 3rd Generation 0.33 L Prolactin 11.3 [place] B-Hydroxybutyrate RPR Nonreactive 04/04/18 04/04/18 04/04/18 12:40 14:06 16:39 ESR POC Glucose (mg/dL) 152 H 276 H Ammonia Total Creatine Kinase 86 CK-MB (Mass) 1.30 Troponin I < 0.0120 NT-Pro-B Natriuret Pep Vitamin B12 Folate Homocysteine Free T4 TSH 3rd Generation Prolactin [place] B-Hydroxybutyrate RPR - EKG Data EKG comments: EKG, my review, NSR, no acute ST-T changes Assessment & Plan (1) Other chest pain Assessment and Plan: Patient asymtpomatic and hemodynamically stable Denies chest pain or dyspnea Unremarkable EKG Troponin is normal x 1 No further cardiac work-up at this time Status: Acute
--- NOTE | 2018-04-04 20:42 | CP.PCM.HP ---
Past Patient History - Infectious Disease Hx of Infectious Diseases: None - Tetanus Immunizations Tetanus Immunization: Unknown - Past Medical History & Family History Past Medical History?: Yes - Past Social History Smoking Status: Never Smoked - CARDIAC Hx Cardiac Disorders: Yes Hx Hypertension: Yes ((from previous triage)) - PULMONARY Hx Respiratory Disorders: No - NEUROLOGICAL Hx Neurological Disorder: No - HEENT Hx HEENT Problems: No - RENAL Hx Chronic Kidney Disease: No - ENDOCRINE/METABOLIC Hx Endocrine Disorders: Yes Hx Diabetes Mellitus Type 2: Yes ((from previous triage)) - HEMATOLOGICAL/ONCOLOGICAL Hx Blood Disorders: No - INTEGUMENTARY Hx Dermatological Problems: No - MUSCULOSKELETAL/RHEUMATOLOGICAL Hx Musculoskeletal Disorders: Yes Hx Falls: Yes - GASTROINTESTINAL Hx Gastrointestinal Disorders: No - GENITOURINARY/GYNECOLOGICAL Hx Genitourinary Disorders: No - PSYCHIATRIC Hx Substance Use: No - SURGICAL HISTORY Hx Surgeries: No - ANESTHESIA Hx Anesthesia: No (unknown, pt unable to recall) Meds Allergies/Adverse Reactions: Allergies Allergy/AdvReac Type Severity Reaction Status Date / Time haloperidol [From Haldol] Allergy ANAPHYLAXIS Verified 04/04/18 15:24 Penicillins Allergy ANAPHYLAXIS Verified 04/04/18 15:24 Physical Exam - Constitutional Appears: Well - Head Exam Head Exam: ATRAUMATIC, NORMAL INSPECTION, NORMOCEPHALIC - Eye Exam Eye Exam: EOMI, Normal appearance, PERRL Pupil Exam: NORMAL ACCOMODATION, PERRL - ENT Exam ENT Exam: Mucous Membranes Moist, Normal Exam - Neck Exam Neck exam: Positive for: Normal Inspection - Respiratory Exam Respiratory Exam: Decreased Breath Sounds - Cardiovascular Exam Cardiovascular Exam: REGULAR RHYTHM, +S1, +S2 - GI/Abdominal Exam GI & Abdominal Exam: Diminished Bowel Sounds, Soft - Rectal Exam Rectal Exam: Deferred Results - Vital Signs Recent Vital Signs: Last Vital Signs Temp 98.1 F 04/04/18 16:03 Pulse 70 04/04/18 18:00 Resp 20 04/04/18 16:03 BP 156/71 H 04/04/18 16:03 Pulse Ox 98 04/04/18 16:03 - Labs Result Diagrams: 04/03/18 19:53 04/03/18 19:53 Labs: Laboratory Results - last 24 hr 04/03/18 04/04/18 04/04/18 21:47 02:21 06:14 ESR POC Glucose (mg/dL) 143 H Ammonia Total Creatine Kinase 76 CK-MB (Mass) 1.62 Troponin I < 0.0120 Vitamin B12 Folate Homocysteine Free T4 TSH 3rd Generation Prolactin [place] < 0.2 L RPR 04/04/18 04/04/18 04/04/18 08:49 08:49 08:49 ESR 39 H POC Glucose (mg/dL) [place] < 9 L Total Creatine Kinase CK-MB (Mass) Troponin I Vitamin B12 Folate Homocysteine Free T4 1.46 TSH 3rd Generation 0.33 L Prolactin [place] RPR 04/04/18 04/04/18 04/04/18 08:49 08:49 12:40 ESR POC Glucose (mg/dL) 152 H Ammonia Total Creatine Kinase CK-MB (Mass) Troponin I Vitamin B12 885 Folate 13.3 Homocysteine 11.7 Free T4 TSH 3rd Generation Prolactin 11.3 [place] RPR Nonreactive 04/04/18 04/04/18 14:06 16:39 ESR POC Glucose (mg/dL) 276 H Ammonia Total Creatine Kinase 86 CK-MB (Mass) 1.30 Troponin I < 0.0120 Vitamin B12 Folate Homocysteine Free T4 TSH 3rd Generation Prolactin [place] RPR
[2018-04-05] MEDS: Sodium Chloride 0.9% 1,000 ML IV SCH ×4 (01:28→21:08)
--- NOTE | 2018-04-05 03:49 | CON ---
DATE: 04/05/2018 PSYCHIATRIC CONSULTATION CHIEF COMPLAINT/REASON FOR CONSULTATION: The patient was referred by Dr. Ghanshyam Camacho for evaluation and comanagement. The patient was admitted here for change of mental status, but has a long history of bipolar disorder, at least 40 years, currently on Zyprexa 10 mg at bedtime. HISTORY OF PRESENT ILLNESS: This is the case of a 67-year-old male with history of bipolar for many years. The patient was admitted, was brought in by the [facility]. The patient was exhibiting worsening behavior and change in mental status, was noted to be acting bizarre. Has not been eating, became more confused, and also not taking his medication. The collateral information taken from the chart as the patient was admitted here in January, was admitted here also for similar reason, change in mental status at times. The patient was noted to have very high level of lithium. From the chart, the patient was seen by Dr. Euceda and was noted the patient's history of bipolar for many years, and has been taking lithium up to 900 mg daily for 40 years. He has been active. The patient stated that he was followed by Dr. Machuca as his psychiatrist for many years. The patient on his last admission was taken off lithium completely, and then the patient was put on Zyprexa, but the patient seems to be not taking the medication. The patient was admitted here for similar complaints and when seen today, very confused. As stated, he has not been taking his medications. The patient states he is no longer taking lithium. He also states that he is not sleeping; he is not eating, and the [facility] reports that he has been acting very bizarre. PAST PSYCHIATRIC HISTORY: The patient reports he has history of bipolar for over 40 years, has been admitted in the past here at [facility] twice according to him, and he has been maintained with lithium for 40 years, but was taken off last admission here medically because he was toxic as well. Currently on Zyprexa 10 mg daily. Review of his prolactin level, his prolactin level is 11.3, which is within normal limit. Possibly, the patient is not taking the Zyprexa. MEDICAL HISTORY: The patient has a history of the diabetes and hypertension. DRUG AND ALCOHOL HISTORY: Denies any. PSYCHOSOCIAL HISTORY: The patient lives alone. He used to drive a taxi. ALLERGIES: THE PATIENT IS ALLERGIC TO HALDOL AND PENICILLIN. LIST OF CURRENT MEDICATIONS: The patient is on aspirin, Lovenox, Protonix, and was on sodium chloride IV. VITAL SIGNS: Temperature is 98.1, pulse 60, blood pressure 166/71, respirations 20, and oxygen saturation is 98%. LABORATORY DATA: Review of the labs, blood sugar is 152, creatinine is 1.2. B12 is 885, folate is 18.3. Free T4 is 1.46. The patient is currently off lithium. Prolactin is 11.3. REVIEW OF SYSTEMS: GENERAL: An elderly male, alert, but confused in his room, at times perservative in his answers. He is still very confused. SKIN: No pruritus. HEENT: No headache, no dizziness. NECK: Supple. RESPIRATORY: No dyspnea. CARDIOVASCULAR: No chest pain. GASTROINTESTINAL: No nausea, no vomiting. EXTREMITIES: Moving extremities. MUSCULOSKELETAL: Feels weak. NEUROLOGIC: Alert, confused. GENITOURINARY: No dysuria. MENTAL STATUS EXAMINATION: Elderly male who looks stated age. Oriented x2, place and person, not to time. Speech is slow. Affect is restricted. Mood dysphoric. Thought process, confused. Thought content, no overt psychosis. No suicidal or homicidal ideation. Attention and memory seem to be impaired. Insight and judgment impaired. Impulse control is guarded. IMPRESSION: History of bipolar mix as well as possible delirium. PLAN AND RECOMMENDATIONS: The patient was seen and meds reviewed. Continue present management. By the way, his ammonia is less than 9. We will try to put the patient on Zyprexa for his bipolar and monitor blood sugar, and I suggested the patient may be transferred to a geropsych unit for restabilization once medically cleared. Note: The patient has been on lithium for many years. He is not going to do well if taken off lithium. The patient's lithium is a gold standard medication for bipolar and if the patient has been taking lithium for many years and discontinued abruptly, the patient usually does not do well without the lithium. In the event that the patient will not respond well to the Zyprexa, I just suggested the patient can be given low dose lithium as an inpatient, especially that his creatinine value is already 1.2. Patients with bipolar who are geriatric, may be maintained with doses of lithium between 300 to 450 mg daily, if they can tolerate. Continue the assessment and plan as outlined. Дмитрий Garcia MD [facility]
[2018-04-05 07:24] LABS: URINE BACTERIA MOD (<OCC); URINE BILIRUBIN NEGATIVE (NEGATIVE); URINE BLOOD 1+ (NEGATIVE); URINE CLARITY Turbid (Clear); URINE COLOR Yellow (YELLOW); URINE GLUCOSE (UA) 3+ mg/dL (Normal); URINE LEUKOCYTE ESTERASE 3+ Leu/uL (Negative); URINE PROTEIN 1+ mg/dL (NEGATIVE); URINE UROBILINOGEN NORMAL mg/dL (0.2-1.0); WBC CLUMPS MANY /hpf
[2018-04-05 07:54] LABS: BARBITURATES, UR NEGATIVE (NEGATIVE); BENZODIAZEPINES, UR NEGATIVE (NEGATIVE); OPIATES, UR NEGATIVE (NEGATIVE); PHENCYCLIDINE, UR NEGATIVE (NEGATIVE)
[2018-04-05] MEDS: Enoxaparin 40 mg Syringe SC SCH (10:21)
[2018-04-05] MEDS: Pantoprazole 40 mg EC Tab PO SCH (10:22)
--- NOTE | 2018-04-05 12:19 | CARD ---
APPROVED REPORT Date of service: 04/03/2018 EKG Measurement Heart [id number] <Conclusion> Normal sinus rhythm Left axis deviation Abnormal ECG
--- NOTE | 2018-04-05 14:03 | CP.PCM.PN ---
Subjective - Date & Time of Evaluation Date of Evaluation: 04/05/18 Time of Evaluation: 09:30 - Subjective Subjective: clinically same Objective - Vital Signs/Intake and Output Vital Signs (last 24 hours): Temp Pulse Resp BP Pulse Ox 98.3 F 60 20 123/57 L 97 04/05/18 07:00 04/05/18 08:24 04/05/18 07:00 04/05/18 07:00 04/05/18 07:00 Intake and Output: 04/05/18 04/05/18 06:59 18:59 Intake Total 800 Output Total 850 Balance -50 - Medications Medications: Current Medications Aspirin (Aspirin) 325 mg PO DAILY [facility] Last Admin: 04/05/18 10:22 Dose: 325 mg Enoxaparin Sodium (Lovenox) 40 mg SC DAILY [facility] Last Admin: 04/05/18 10:21 Dose: 40 mg Sodium Chloride (Sodium Chloride 0.9%) 1,000 mls @ 100 mls/hr IV .Q10H [facility] Last Admin: 04/05/18 05:40 Dose: 100 mls/hr Insulin Aspart (Novolog) 0 unit SC ACHS [facility] PRN Reason: Protocol Olanzapine (Zyprexa) 10 mg PO HS [facility] Last Admin: 04/04/18 21:44 Dose: 10 mg Pantoprazole Sodium (Protonix Ec Tab) 40 mg PO DAILY [facility] Last Admin: 04/05/18 10:22 Dose: 40 mg - Labs Labs: 04/03/18 19:53 04/03/18 19:53 PT 14.6 SECONDS (9.7-12.2) H 04/03/18 19:53 INR 1.3 04/03/18 19:53 APTT 31 SECONDS (21-34) 04/03/18 19:53 - Constitutional Appears: Well - Head Exam Head Exam: ATRAUMATIC, NORMAL INSPECTION, NORMOCEPHALIC - Eye Exam Eye Exam: EOMI, Normal appearance, PERRL Pupil Exam: NORMAL ACCOMODATION, PERRL - ENT Exam ENT Exam: Mucous Membranes Moist, Normal Exam - Neck Exam Neck Exam: Full ROM, Normal Inspection. absent: Lymphadenopathy - Respiratory Exam Respiratory Exam: Decreased Breath Sounds - Cardiovascular Exam Cardiovascular Exam: REGULAR RHYTHM, +S1, +S2 - GI/Abdominal Exam GI & Abdominal Exam: Soft, Diminished Bowel Sounds - Rectal Exam Rectal Exam: Deferred
--- NOTE | 2018-04-05 14:52 | PN ---
DATE: 04/05/2018 SUBJECTIVE: The patient is seen. The patient is alert with periods of confusion. No major behavioral problems. The patient is eating his breakfast. He was put on Zyprexa 10 mg at bedtime, which he took. Review of his labs showed the patient's UA showed signs and symptoms of urinary tract infection. He is +1 for protein, +2 for glucose. Also urine wbc's 3376, urine rbc's 53, presence of moderate bacteria. His drug screen is negative. Lyme's test is negative. The patient may need to be treated for UTI. PHYSICAL EXAMINATION: VITAL SIGNS: Temperature is 98.3, 60, 123/57, respirations 20, oxygen saturation is 97%. The patient may need probably UA, C and S and treatment for his UTI. REVIEW OF SYSTEMS: CONSTITUTIONAL: The patient is alert with periods of confusion, seen in his room, eating. SKIN: No diaphoresis. HEENT: No headache. No dizziness. NECK: Supple. RESPIRATORY: No dyspnea. CARDIOVASCULAR: No chest pain. GASTROINTESTINAL: Has good appetite. EXTREMITIES: Moving extremities. MUSCULOSKELETAL: Feels weak. NEUROLOGIC: Alert with periods of confusion, although the patient knows he is in the hospital. Oriented to person. GENITOURINARY: he is not complaining of dysuria, hematuria. MENTAL STATUS: Elderly male with history of bipolar disorder, 6 feet and 188 pounds. Mood is dysphoric. Affect is reactive. Speech is spontaneous. Thought process confused often. Thought content, no overt point of hallucination. No suicidal or homicidal ideation. Attention and memory seem to be fair. Insight and judgment limited. Impulse control is fair at this time. 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 RECOMMENDATIONS: The patient seen, meds reviewed. Continue present management. The patient may benefit from [facility] for admission. Once medically cleared, the patient may need treatment for his possible UTI or may need to do a urine C and S. Continue treatment plan as outlined. Дмитрий Garcia MD [facility] # [id number] MTDLuis
[2018-04-05] MEDS: (Novolog) Insulin Aspart, Recombinant 100 u/ml 10 ml vial SC SCH ×2 (17:27→21:05)
[2018-04-06] MEDS: Sodium Chloride 0.9% 1,000 ML IV SCH ×3 (04:02→17:30)
--- NOTE | 2018-04-06 06:53 | PN ---
DATE: 04/05/2018 TIME OF EVALUATION: 06:55 a.m. NEUROLOGICAL PROBLEM: Change in mental status, possible toxic encephalopathy. PHYSICAL EXAMINATION: VITAL SIGNS: Blood pressure 128/72, pulse rate 76, respiratory 16. GENERAL: The patient is sleeping, easily arousable, calling his first name. NEUROLOGIC: Speech is fluent. No sign of hallucination. No sign of suicidal ideation. He stated he slept normal. He moves all 4 extremities against the gravity. His current examination which is unchanged compared with my previous examination. His workup is on progress. Psychiatric consultation is still pending. Continue the present management. The patient will be followed closely with you. Ghanshyam Camacho MD
[2018-04-06] MEDS: (Novolog) Insulin Aspart, Recombinant 100 u/ml 10 ml vial SC SCH ×4 (08:37→22:12)
--- NOTE | 2018-04-06 08:43 | PN ---
DATE: 04/06/2018 TIME OF THE EVALUATION: 07:10 a.m. NEUROLOGICAL PROBLEM: Toxic encephalopathy. PHYSICAL EXAMINATION: VITAL SIGNS: Blood pressure 158/70, mean arterial pressure of 99, respiratory rate 18, temperature afebrile. Events overnight has been discussed with the nurse . At present, the patient is mute. Just looking at the TV with some spot in his movement of his upper extremities. None communicable. The patient was seen by psychiatrist. His workup as well as recommendations are appreciated. The patient is on appropriate antibiotics. The patient should be on proper hydration. As per the psychiatrist, the patient may be benefited Geropsych unit for admission for better management. We will continue the present management while he is here. Ghanshyam Camacho MD
[2018-04-06] MEDS: Enoxaparin 40 mg Syringe SC SCH (09:48)
[2018-04-06] MEDS: Pantoprazole 40 mg EC Tab PO SCH (09:49)
[2018-04-06] MEDS ORDERED: Ciprofloxacin 400mg/200ml D5W 400 MG/200 ML BAG IVPB SCH (15:00)
[2018-04-06] MEDS: Ciprofloxacin 400mg/200ml D5W 400 MG/200 ML BAG IVPB SCH (17:24)
--- NOTE | 2018-04-06 20:19 | PN ---
DATE: 04/06/2018 SUBJECTIVE: The patient is seen. The patient noted by the nurse to be talking to himself, exhibiting at times bizarre behavior, but he is eating well. The patient is awaiting medical clearance. The patient had urine culture and sensitivity, and the patient will be started with antibiotics Cipro 400 mg IV every 12 hours for the patient's positive gram-positive cocci culture. His blood sugar is much better, 156. PHYSICAL EXAMINATION: VITAL SIGNS: Temperature is 97.5, pulse 64, blood pressure 133/73, respirations 20, oxygen saturation is 97%. REVIEW OF SYSTEMS: CONSTITUTIONAL: The patient is alert, verbal, but still with periods of confusion, seen in his room, is eating well, mumbling. SKIN: No diaphoresis. HEENT: No headache. No dizziness. NECK: Supple. RESPIRATORY: No dyspnea. CARDIOVASCULAR: No chest pain. GASTROINTESTINAL: He is eating well. EXTREMITIES: Moving extremities. GENITOURINARY: Not complaining of pain. No dysuria. MUSCULOSKELETAL: Feels weak. NEUROLOGIC: Oriented x3 with periods of confusion. MENTAL STATUS: Elderly male with history of bipolar disorder, oriented x3. Mood is irritable at times. Affect is restricted. Speech is spontaneous. Thought process, confused often. Thought content, seems to be internally preoccupied and talking to himself. No overt hallucinations. No suicidal or homicidal ideation. Attention and memory seem to be limited. Insight and judgment limited. Impulse control is fair at this time. IMPRESSION: History of delirium, which is probably secondary to urinary tract infection as well as bipolar disorder, mixed. PLAN AND RECOMMENDATIONS: The patient is seen, meds reviewed. Agree with the patient to start with antibiotic Cipro 400 mg IV every 12 hours for UTI. The patient also to continue olanzapine 10 mg at bedtime. Probably next week, we will try to transfer him to [facility]. When I discussed with him today, I told him that he might need to be in the [facility] unit. He said he is willing to go, so we will try to transfer him, hopefully Monday, once he is medically cleared. Case discussed with Dr. Taylor, the patient's attending, about possible transfer to [facility]. Дмитрий Garcia MD [facility] # [id number]
--- NOTE | 2018-04-06 20:35 | CP.PCM.PN ---
Subjective - Date & Time of Evaluation Date of Evaluation: 04/06/18 Time of Evaluation: 10:10 - Subjective Subjective: clinically same Objective - Vital Signs/Intake and Output Vital Signs (last 24 hours): Temp Pulse Resp BP Pulse Ox 98.5 F 57 L 20 154/78 H 96 04/06/18 15:00 04/06/18 15:00 04/06/18 15:00 04/06/18 15:00 04/06/18 15:00 - Medications Medications: Current Medications Aspirin (Aspirin) 325 mg PO DAILY [facility] Last Admin: 04/06/18 09:49 Dose: 325 mg Enoxaparin Sodium (Lovenox) 40 mg SC DAILY [facility] Last Admin: 04/06/18 09:48 Dose: 40 mg Ciprofloxacin (Cipro 400mg/200ml Dsw) 400 mg in 200 mls @ 133 mls/hr IVPB Q12H [facility] PRN Reason: Protocol Last Admin: 04/06/18 17:24 Dose: 133 mls/hr Insulin Aspart (Novolog) 0 unit SC ACHS [facility] PRN Reason: Protocol Last Admin: 04/06/18 17:30 Dose: Not Given Olanzapine (Zyprexa) 10 mg PO HS [facility] Last Admin: 04/05/18 21:08 Dose: Not Given Pantoprazole Sodium (Protonix Ec Tab) 40 mg PO DAILY [facility] Last Admin: 04/06/18 09:49 Dose: 40 mg - Labs Labs: 04/03/18 19:53 04/03/18 19:53 PT 14.6 SECONDS (9.7-12.2) H 04/03/18 19:53 INR 1.3 04/03/18 19:53 APTT 31 SECONDS (21-34) 04/03/18 19:53
[2018-04-07] MEDS: Ciprofloxacin 400mg/200ml D5W 400 MG/200 ML BAG IVPB SCH ×2 (05:44→17:08)
[2018-04-07] MEDS: (Novolog) Insulin Aspart, Recombinant 100 u/ml 10 ml vial SC SCH ×4 (07:40→21:37)
[2018-04-07] MEDS: Enoxaparin 40 mg Syringe SC SCH (09:01)
[2018-04-07] MEDS: Pantoprazole 40 mg EC Tab PO SCH (09:02)
--- NOTE | 2018-04-07 14:42 | PN ---
DATE: 04/07/2018 SUBJECTIVE: The patient is seen. The patient is still generally wake up and talks to himself, but no bizarre behavior. He has been compliant with meds eating. The patient has got antibiotics for UTI. We are awaiting medical clearance possibly on Monday to go to [facility]. The patient is still willing to go to [facility] unit. He also reports that he has been followed by Dr. Machuca for over 4 years. He was admitted here and [facility] twice in the past. He says he was treated before by Dr. Perez, who many years ago, a psychiatrist before at [facility]. MEDICATIONS: The patient currently on Zyprexa 10 mg at bedtime and currently being treated for UTI taking Cipro 400 mg every 12 hours. His blood sugars have improved in the low to 100s. PHYSICAL EXAMINATION: GENERAL: The patient is alert, verbal, less confused, seen in his room, he is eating well. VITAL SIGNS: Temperature 97.8, pulse rate is 58, blood pressure 115/72, respirations 20, and oxygen saturation is 98%. SKIN: No diaphoresis. HEENT: No headache. No dizziness. NECK: Supple. RESPIRATORY: No dyspnea. CARDIOVASCULAR: No chest pain. GASTROINTESTINAL: Good appetite. No nausea. No vomiting. EXTREMITIES: Moving extremities. MUSCULOSKELETAL: Feels weak. GENITOURINARY: No dysuria. No hematuria. NEUROLOGIC: Alert with some periods of confusion. The patient is redirectable. MENTAL STATUS EXAMINATION: An elderly male, he has hospital gown seen in his room oriented x 3 but with periods of confusion, nowt resolving. Speech is spontaneous. Affect is restricted. Mood is dysphoric. Thought process, less confused. Thought content seems internally preoccupied. No paranoia. No suicidal or homicidal ideations. Attention and memory seem to be limited. Insight and judgment are limited. Impulse control is improving at this time. IMPRESSION: Delirious secondary to possible urinary tract infection as well as bipolar disorder mixed. PLAN AND RECOMMENDATIONS: The patient is seen. Medications reviewed. Continue antibiotics as ordered for UTI as well as Zyprexa 10 mg at bedtime. The patient will be referred possibly on Monday to [facility] to [facility] for further inpatient treatment of his bipolar disorder. Дмитрий Garcia MD [facility] # [id number] MTDLuis
--- NOTE | 2018-04-07 14:57 | CP.PCM.PN ---
Subjective - Date & Time of Evaluation Date of Evaluation: 04/07/18 Time of Evaluation: 08:45 - Subjective Subjective: clinically same Objective - Vital Signs/Intake and Output Vital Signs (last 24 hours): Temp Pulse Resp BP Pulse Ox 97.8 F 58 L 20 115/72 98 04/07/18 07:00 04/07/18 07:00 04/07/18 07:00 04/07/18 07:00 04/07/18 07:00 Intake and Output: 04/07/18 04/07/18 06:59 18:59 Intake Total 1000 Balance 1000 - Medications Medications: Current Medications Aspirin (Aspirin) 325 mg PO DAILY [facility] Last Admin: 04/07/18 09:01 Dose: 325 mg Enoxaparin Sodium (Lovenox) 40 mg SC DAILY [facility] Last Admin: 04/07/18 09:01 Dose: 40 mg Ciprofloxacin (Cipro 400mg/200ml Dsw) 400 mg in 200 mls @ 133 mls/hr IVPB Q12H [facility] PRN Reason: Protocol Last Admin: 04/07/18 05:44 Dose: 133 mls/hr Insulin Aspart (Novolog) 0 unit SC ACHS [facility] PRN Reason: Protocol Last Admin: 04/07/18 12:26 Dose: 3 units Olanzapine (Zyprexa) 10 mg PO HS [facility] Last Admin: 04/06/18 22:14 Dose: 10 mg Pantoprazole Sodium (Protonix Ec Tab) 40 mg PO DAILY [facility] Last Admin: 04/07/18 09:02 Dose: 40 mg - Labs Labs: 04/03/18 19:53 04/03/18 19:53 PT 14.6 SECONDS (9.7-12.2) H 04/03/18 19:53 INR 1.3 04/03/18 19:53 APTT 31 SECONDS (21-34) 04/03/18 19:53 - Constitutional Appears: Well - Head Exam Head Exam: ATRAUMATIC, NORMAL INSPECTION, NORMOCEPHALIC - Eye Exam Eye Exam: EOMI, Normal appearance, PERRL Pupil Exam: NORMAL ACCOMODATION, PERRL - ENT Exam ENT Exam: Mucous Membranes Moist, Normal Exam - Neck Exam Neck Exam: Full ROM, Normal Inspection. absent: Lymphadenopathy - Respiratory Exam Respiratory Exam: Decreased Breath Sounds - Cardiovascular Exam Cardiovascular Exam: REGULAR RHYTHM, +S1, +S2 - GI/Abdominal Exam GI & Abdominal Exam: Soft, Diminished Bowel Sounds - Rectal Exam Rectal Exam: Deferred
[2018-04-08] MEDS: Ciprofloxacin 400mg/200ml D5W 400 MG/200 ML BAG IVPB SCH ×2 (05:54→17:27)
[2018-04-08] MEDS: (Novolog) Insulin Aspart, Recombinant 100 u/ml 10 ml vial SC SCH ×4 (08:30→21:17)
[2018-04-08] MEDS: Enoxaparin 40 mg Syringe SC SCH (09:00)
[2018-04-08] MEDS: Pantoprazole 40 mg EC Tab PO SCH (09:01)
--- NOTE | 2018-04-08 18:20 | CP.PCM.PN ---
Subjective - Date & Time of Evaluation Date of Evaluation: 04/08/18 Time of Evaluation: 18:18 - Subjective Subjective: CHART REVIEWED, PT SEEN AND EXAMINED., COVERING DR Tobias ADKINS. PT ALERT, NO DISTRESS. ROS; UNOBTAINABLE. Objective - Vital Signs/Intake and Output Vital Signs (last 24 hours): Temp Pulse Resp BP Pulse Ox 98.6 F 55 L 20 120/73 99 04/08/18 15:12 04/08/18 15:12 04/08/18 15:12 04/08/18 15:12 04/08/18 15:12 Intake and Output: 04/08/18 04/08/18 06:59 18:59 Intake Total 200 Balance 200 - Medications Medications: Current Medications Aspirin (Aspirin) 325 mg PO DAILY [facility] Last Admin: 04/08/18 09:01 Dose: 325 mg Enoxaparin Sodium (Lovenox) 40 mg SC DAILY [facility] Last Admin: 04/08/18 09:00 Dose: 40 mg Ciprofloxacin (Cipro 400mg/200ml Dsw) 400 mg in 200 mls @ 133 mls/hr IVPB Q12H [facility] PRN Reason: Protocol Last Admin: 04/08/18 17:27 Dose: 133 mls/hr Insulin Aspart (Novolog) 0 unit SC ACHS [facility] PRN Reason: Protocol Last Admin: 04/08/18 16:25 Dose: Not Given Olanzapine (Zyprexa) 10 mg PO HS [facility] Last Admin: 04/07/18 22:09 Dose: 10 mg Pantoprazole Sodium (Protonix Ec Tab) 40 mg PO DAILY [facility] Last Admin: 04/08/18 09:01 Dose: 40 mg - Labs Labs: 04/03/18 19:53 04/03/18 19:53 PT 14.6 SECONDS (9.7-12.2) H 04/03/18 19:53 INR 1.3 04/03/18 19:53 APTT 31 SECONDS (21-34) 04/03/18 19:53 - Constitutional Appears: No Acute Distress, Confused, Chronically Ill - Head Exam Head Exam: ATRAUMATIC, NORMOCEPHALIC - Eye Exam Eye Exam: EOMI, Normal appearance - ENT Exam ENT Exam: Mucous Membranes Moist - Neck Exam Neck Exam: Normal Inspection - Respiratory Exam Respiratory Exam: absent: Wheezes, Respiratory Distress - Cardiovascular Exam Cardiovascular Exam: RRR, +S1, +S2 - GI/Abdominal Exam GI & Abdominal Exam: Soft. absent: Tenderness - Rectal Exam Rectal Exam: Deferred - Extremities Exam Extremities Exam: absent: Calf Tenderness, Pedal Edema - Back Exam Back Exam: absent: CVA tenderness (L), CVA tenderness (R) - Neurological Exam Neurological Exam: Alert, Awake, CN II-XII Intact. absent: Oriented x3 - Psychiatric Exam Psychiatric exam: Flat Affect - Skin Skin Exam: absent: Rash Assessment and Plan (1) Bipolar 1 disorder Status: Acute (2) Diabetes Status: Acute (3) Hypertension Status: Acute (4) Change in mental state Status: Acute - Assessment and Plan (Free Text) Assessment: RESP STATUS COMFORTABLE., AFEBRILE ON AB. LESS CONFUSED NOW. MONITOR ELECTROLYTES AND GLUCOSE. NEURO W/U IN PROGRESS. CONT MEDS PER PSYCH. CXR REVIEWED. PROG POOR. DISCUSSED WITH STAFF.
--- NOTE | 2018-04-08 22:03 | PN ---
DATE: 04/08/2018 SUBJECTIVE: The patient is seen. The patient is calm, seen in his room, but still noted to be internally preoccupied, talking to himself and responding to internal stimulus, but manic symptoms noted. He is currently also being treated for UTI on IV Cipro, but the patient is still willing to be transferred to the Geropsych Unit at [place] once medically cleared. If the patient needs to go to the geropsych unit, the patient's antibiotic to be switched to p.o. instead of IV. He is taking his meds. He has been compliant. No major behavioral problems. The patient is also [facility] once medically stable. PHYSICAL EXAMINATION: VITAL SIGNS: Temperature 98, pulse 66, blood pressure 126/72, respirations 20, oxygen sat is 98%. REVIEW OF SYSTEMS: GENERAL: He is alert, verbal, less confused, seen in his room, cooperative with staff. SKIN: No pruritus. HEENT: No headache. No dizziness. NECK: Supple. RESPIRATORY: No dyspnea. CARDIOVASCULAR: No chest pain. GASTROINTESTINAL: He is eating well. EXTREMITIES: Moves extremities. MUSCULOSKELETAL: Still feels weak. NEURO: Alert and oriented x3. Less confused. GENITOURINARY: Denies dysuria. REVIEW OF HIS LABS: His blood sugar is 225. He has been compliant with his diet. B12 is 885, folate is 13.3. His TSH is 0.33, a little low and prolactin is 11.3. MENTAL STATUS EXAMINATION: An elderly male, looks his stated age, less confused. Oriented x3. Speech is spontaneous. Affect is reactive. Mood is dysphoric. Thought process less confused. Thought content, no paranoia or hallucinations. preoccupied and talking to himself. No suicidal ideation. Attention and memory seem to be limited. Insight and limited. Impulse control is fair at this time. IMPRESSION: History of bipolar mixed as well as history of delirium in the in the past as well as history of urinary tract infection. RECOMMENDATIONS: The patient is seen. Meds reviewed. We will try to transfer the patient [facility] once medically cleared. We will continue the Zyprexa 10 mg at bedtime. Continue antibiotics as ordered. Дмитрий Garcia MD [facility] # [id number]
[2018-04-09] MEDS: Ciprofloxacin 400mg/200ml D5W 400 MG/200 ML BAG IVPB SCH (06:23)
[2018-04-09] MEDS: (Novolog) Insulin Aspart, Recombinant 100 u/ml 10 ml vial SC SCH ×4 (07:34→22:11)
[2018-04-09] MEDS: Pantoprazole 40 mg EC Tab PO SCH (09:43)
[2018-04-09] MEDS: Enoxaparin 40 mg Syringe SC SCH (09:44)
--- NOTE | 2018-04-09 14:43 | CP.PCM.PN ---
Subjective - Date & Time of Evaluation Date of Evaluation: 04/09/18 Time of Evaluation: 14:38 - Subjective Subjective: COVERING DR Tobias ADKINS PT AWAKE., NO DISTRESS. ROS; UNOBTAINABLE. Objective - Vital Signs/Intake and Output Vital Signs (last 24 hours): Temp Pulse Resp BP Pulse Ox 95.5 F L 55 L 20 149/72 99 04/09/18 07:00 04/09/18 07:00 04/09/18 07:00 04/09/18 07:00 04/09/18 07:00 Intake and Output: 04/09/18 04/09/18 06:59 18:59 Intake Total 300 Balance 300 - Medications Medications: Current Medications Aspirin (Aspirin) 325 mg PO DAILY [facility] Last Admin: 04/09/18 09:43 Dose: 325 mg Ciprofloxacin (Cipro) 500 mg PO Q12H [facility] Enoxaparin Sodium (Lovenox) 40 mg SC DAILY [facility] Last Admin: 04/09/18 09:44 Dose: 40 mg Insulin Aspart (Novolog) 0 unit SC ACHS [facility] PRN Reason: Protocol Last Admin: 04/09/18 12:57 Dose: 2 units Olanzapine (Zyprexa) 10 mg PO HS [facility] Last Admin: 04/08/18 21:29 Dose: 10 mg Pantoprazole Sodium (Protonix Ec Tab) 40 mg PO DAILY [facility] Last Admin: 04/09/18 09:43 Dose: 40 mg - Labs Labs: 04/03/18 19:53 04/03/18 19:53 PT 14.6 SECONDS (9.7-12.2) H 04/03/18 19:53 INR 1.3 04/03/18 19:53 APTT 31 SECONDS (21-34) 04/03/18 19:53 - Constitutional Appears: No Acute Distress, Confused, Chronically Ill - Head Exam Head Exam: ATRAUMATIC, NORMOCEPHALIC - Eye Exam Eye Exam: EOMI, Normal appearance - ENT Exam ENT Exam: Mucous Membranes Moist - Neck Exam Neck Exam: Normal Inspection - Respiratory Exam Respiratory Exam: absent: Wheezes, Respiratory Distress - Cardiovascular Exam Cardiovascular Exam: RRR, +S1, +S2 - GI/Abdominal Exam GI & Abdominal Exam: Soft. absent: Tenderness - Rectal Exam Rectal Exam: Deferred - Extremities Exam Extremities Exam: absent: Calf Tenderness, Pedal Edema - Back Exam Back Exam: absent: CVA tenderness (L) - Neurological Exam Neurological Exam: Awake. absent: Oriented x3 - Psychiatric Exam Psychiatric exam: Flat Affect - Skin Skin Exam: absent: Rash Assessment and Plan (1) Bipolar 1 disorder Status: Acute (2) Diabetes Status: Acute (3) Hypertension Status: Acute (4) Change in mental state Status: Acute - Assessment and Plan (Free Text) Assessment: RESP STATUS COMFORTABLE. EATING BETTER. AFEBRILE ON CIPRO, CHANGED TO PO . CXR REVIEWED., CONT PER PSYCH. FOR TRANS TO INPT PSYCH FOR FURTHER TX. DISCUSSED WITH STAFF AT LENGTH AND PSYCH. DR EDDY. TIME SPENT 40 MIN.
--- NOTE | 2018-04-09 21:06 | PN ---
DATE: 04/09/2018 SUBJECTIVE: The patient is seen. The patient still has periods of internal preoccupation, talking to himself. Today, he was complaining about his eyes. The patient is still compliant with his meds. I spoke with Dr. Paulson who is the doctor covering for Dr. Taylor. Dr. Paulson states that the patient is medically cleared to be transferred to geropsych unit at [place]. The patient has signed [facility] [place] as the patient may need some medication readjustment. He is currently taking Zyprexa at 10 mg at bedtime. No bizarre behavior noted. PHYSICAL EXAMINATION: VITAL SIGNS: Temperature 95.5, 55, 149/72, respirations 20, and oxygen saturation is 99%. REVIEW OF SYSTEMS: The patient is alert, verbal, oriented to place and person as well as to time, seen in his room. SKIN: No diaphoresis. HEENT: No headache or dizziness. NECK: Supple. RESPIRATORY: No dyspnea. CARDIOVASCULAR: No chest pain. GASTROINTESTINAL: He is eating well. EXTREMITIES: The patient moves his extremities. MUSCULOSKELETAL: Weakness improving. NEUROLOGIC: Alert and oriented x3. GENITOURINARY: No urinary problems. MENTAL STATUS EXAMINATION: An elderly male, looks his stated age, in hospital gowns in his room. Mood is dysphoric. Affect is reactive. Speech is spontaneous. Thought process, less confused. Thought content, the patient has no overt paranoia or hallucination. No suicidal or homicidal ideation. The patient has agreed to go for voluntary inpatient admission at [facility] Ger[facility]. Attention and memory seem to be fair. Insight and judgment improving. Impulse control is fair at this time. IMPRESSION: History of bipolar disorder as well as history of status post lithium toxicity in the past and history of urinary tract infection. PLAN AND RECOMMENDATIONS: The patient is seen, meds reviewed. The [facility] will be [facility] today [facility] The patient was medically cleared by Dr. Paulson. Also, the patient's antibiotic has been transferred to p.o. instead of IV. Дмитрий Garcia MD [facility] # [id number]
[2018-04-10 07:42] LABS: EOS # 0.2 K/uL (0.0-0.7); HEMOGLOBIN 11.8 g/dL (12.0-18.0); LYMPH # 1.9 K/uL (1.0-4.3); MEAN CELL VOLUME 86.3 fL (80.0-94.0); MEAN CORPUSCULAR HEMOGLOBIN 29.3 pg (27.0-31.0)
[2018-04-10 08:02] LABS: BASO # 0.1 K/uL (0.0-0.2); BASO % 0.6 % (0.0-2.0); EOS % 2.5 % (0.0-4.0); LYMPH % 23.2 % (20.0-40.0); MEAN PLATELET VOLUME 8.9 fL (7.2-11.7); MONO # 0.9 K/uL (0.0-0.8); MONO % 10.9 % (0.0-10.0); NEUT % 62.8 % (50.0-75.0); RBC 4.01 Mil/uL (4.40-5.90); RED CELL DISTRIBUTION WIDTH 14.1 % (11.5-14.5)
[2018-04-10] MEDS: (Novolog) Insulin Aspart, Recombinant 100 u/ml 10 ml vial SC SCH ×2 (08:45→12:27)
[2018-04-10 08:48] LABS: ALB/GLOB RATIO 1.2 (1.0-2.1); ALBUMIN 3.7 g/dL (3.5-5.0); ALT/SGPT 89 U/L (21-72); AST/SGOT 59 U/L (17-59); BLOOD UREA NITROGEN 23 mg/dL (9-20); CALCIUM 8.9 mg/dl (8.6-10.4); GFR AFRICAN-AMERICAN > 60; GFR NON-AFRICAN AMERICAN > 60
[2018-04-10] MEDS: Enoxaparin 40 mg Syringe SC SCH (09:47)
[2018-04-10] MEDS: Pantoprazole 40 mg EC Tab PO SCH (09:47)
--- NOTE | 2018-04-10 11:51 | CP.PCM.PN ---
Subjective - Date & Time of Evaluation Date of Evaluation: 04/10/18 Time of Evaluation: 11:51 - Subjective Subjective: COVERING DR Tobias ADKINS. PT ALERT,NO DISTRESS. ROS; UNOBTAINABLE. Objective - Vital Signs/Intake and Output Vital Signs (last 24 hours): Temp Pulse Resp BP Pulse Ox 98.3 F 65 20 158/77 H 100 04/10/18 07:00 04/10/18 07:00 04/10/18 07:00 04/10/18 07:00 04/10/18 07:00 - Medications Medications: Current Medications Aspirin (Aspirin) 325 mg PO DAILY [facility] Last Admin: 04/10/18 09:47 Dose: 325 mg Ciprofloxacin (Cipro) 500 mg PO Q12H [facility] Last Admin: 04/10/18 06:19 Dose: 500 mg Enoxaparin Sodium (Lovenox) 40 mg SC DAILY [facility] Last Admin: 04/10/18 09:47 Dose: 40 mg Insulin Aspart (Novolog) 0 unit SC ACHS [facility] PRN Reason: Protocol Last Admin: 04/10/18 08:45 Dose: 3 units Lorazepam (Ativan) 2 mg IM Q12H [facility] PRN Reason: Anxiety Olanzapine (Zyprexa) 10 mg PO HS [facility] Last Admin: 04/09/18 22:09 Dose: 10 mg Pantoprazole Sodium (Protonix Ec Tab) 40 mg PO DAILY [facility] Last Admin: 04/10/18 09:47 Dose: 40 mg - Labs Labs: 04/10/18 07:12 04/10/18 07:12 PT 14.6 SECONDS (9.7-12.2) H 04/03/18 19:53 INR 1.3 04/03/18 19:53 APTT 31 SECONDS (21-34) 04/03/18 19:53 - Constitutional Appears: No Acute Distress, Chronically Ill - Head Exam Head Exam: ATRAUMATIC, NORMOCEPHALIC - Eye Exam Eye Exam: EOMI, Normal appearance - ENT Exam ENT Exam: Mucous Membranes Moist - Neck Exam Neck Exam: Normal Inspection - Respiratory Exam Respiratory Exam: absent: Wheezes, Respiratory Distress - Cardiovascular Exam Cardiovascular Exam: RRR, +S1, +S2 - GI/Abdominal Exam GI & Abdominal Exam: Soft. absent: Tenderness - Rectal Exam Rectal Exam: Deferred - Extremities Exam Extremities Exam: absent: Calf Tenderness, Pedal Edema - Back Exam Back Exam: absent: CVA tenderness (L), CVA tenderness (R) - Neurological Exam Neurological Exam: Alert, Awake, CN II-XII Intact. absent: Oriented x3 - Psychiatric Exam Psychiatric exam: Flat Affect - Skin Skin Exam: absent: Rash Assessment and Plan (1) Bipolar 1 disorder Status: Acute (2) Diabetes Status: Acute (3) Hypertension Status: Acute (4) Change in mental state Status: Acute - Assessment and Plan (Free Text) Assessment: RESP STATUS COMFORTABLE. CONT PULM TOILET., CXR REVIEEWED. AFEBRILE. STABLE FOR TRANSFER TO [facility] TODAY. DISCUSSED WITH STAFF AT LENGTH AND DR EDDY. TIME SPENT 40 MIN.
[2018-04-10] MEDS ORDERED: Pneumococcal 23-Valent Vaccine IM ONE (13:00)
[2018-04-10 14:37] VITALS: BP 158/74; PULSE 72; RESP 18; TEMP 98; O2SAT 98
--- NOTE | 2018-04-10 15:04 | PN ---
DATE: 04/10/2018 SUBJECTIVE: [facility] He wanted to leave earlier yesterday and was agitated, but today he is more manageable. Has been compliant with meds. PHYSICAL EXAMINATION: VITAL SIGNS: Temperature is 98.3, HR is 72,BP is 158/77, respirations 20, oxygen saturation 100%. REVIEW OF SYSTEMS: CONSTITUTIONAL: The patient is alert, less confused in his room. He is more cooperative, receiving care from staff. [facility] SKIN: No pruritus. HEENT: No headache. No dizziness. NECK: Supple. RESPIRATORY: No dyspnea. CARDIOVASCULAR: No chest pain. GASTROINTESTINAL: He is eating well. EXTREMITIES: Moving extremities. MUSCULOSKELETAL: Weakness improving. NEUROLOGIC: Less confused. Alert and oriented x3. MENTAL STATUS EXAMINATION: Elderly male with history of bipolar disorder, oriented x3. Speech is spontaneous. Affect is reactive. Mood is dysphoric. Thought process, less confused. Thought content, still amenable to go to the [facility] unit for admission. No paranoia. No hallucinations. Attention and memory seems to be limited. Insight and judgment limited. Impulse control is fair at this time. IMPRESSION: A case of bipolar disorder with mixed history of possible delirium secondary to urinary tract infection, resolving. History of lithium toxicity. PLAN AND RECOMMENDATION: The patient is seen and meds reviewed. The patient will be transferred today to the [facility] unit for inpatient treatment and meds readjustment. Currently, the patient is taking all the medicines, Zyprexa 10 mg at bedtime, he was given Ativan 2 mg p.r.n. yesterday and also was put on Ativan p.r.n. 2 mg IM every 12 hours p.r.n. The patient is on p.o. antibiotics, Cipro 500 mg every 12 hours. Psych shen, he is stable to be transferred to the [facility] for further treatment of his bipolar disorder from the medical floor. Дмитрий Garcia MD [facility] # [id number] MTDD
== END 2018-04-10 13:40 | DRG 637 ==
LOC: C.ER 18:30 → C.9E 22:27 → C.5S 23:13
PROVIDERS: ADMIT Internal Medicine Nephrology; ATTEND Internal Medicine Nephrology
DX: E11.65 Type 2 diabetes mellitus with hyperglycemia (principal); G92 Toxic encephalopathy; G93.41 Metabolic encephalopathy; F31.60 Bipolar disorder, current episode mixed, unspecified; N39.0 Urinary tract infection, site not specified; E86.0 Dehydration; E11.42 Type 2 diabetes mellitus with diabetic polyneuropathy; G62.9 Polyneuropathy, unspecified; I10 Essential (primary) hypertension; Z87.440 Personal history of urinary (tract) infections; Z91.14 Patient's other noncompliance with medication regimen; Z91.19 Patient's noncompliance with other medical treatment and regimen

== ENCOUNTER 2018-09-14 17:35 | Emergency (ER) | payer MEDICARE, MEDICAID ==
[2018-09-14 17:41] VITALS: BMI 29.2
[2018-09-14 17:48] VITALS: BP 124/85; PULSE 129; RESP 16; TEMP 98.6; O2SAT 98
== END 2018-09-14 18:07 | disposition left against medical advice (07) ==
LOC: C.ER 17:35
DX: Z02.89 Encounter for other administrative examinations (principal); R20.0 Anesthesia of skin
CPT/HCPCS: 82948; LWBS0

== ENCOUNTER 2018-09-14 19:23 | Emergency (ER) | payer MEDICARE, MEDICAID ==
[2018-09-14 19:23] VITALS: BMI 29.2
[2018-09-14 19:50] VITALS: RESP 20
--- NOTE | 2018-09-14 20:44 | C.PDOC ---
History Of Present Illness 68 year old, left hand dominant male with a history of diabetes and herniated disc presents to the ED for an evaluation of right finger numbness onset for one week. Patient reports of right hand numbness. He denies extremity weakness, numbness, wrist pain, injury or trauma. Time Seen by Provider: 09/14/18 20:13 Chief Complaint (Nursing): Upper Extremity Problem/Injury History Per: Patient History/Exam Limitations: no limitations Onset/Duration Of Symptoms: Other (one week) Current Symptoms Are (Timing): Still Present Past Medical History Reviewed: Historical Data, Nursing Documentation, Vital Signs Vital Signs: Last Vital Signs Temp 98.2 F 09/14/18 19:46 Pulse 98 H 09/14/18 19:46 Resp 20 09/14/18 19:46 BP 117/77 09/14/18 19:46 Pulse Ox 98 09/14/18 19:46 - Medical History PMH: Anxiety, Bipolar Disorder, Diabetes, HTN Denies: Chronic Kidney Disease Other PMH: herniated disc - [facility] Procedures CLOSURE SKIN & SUBCUTANEOUS NEC (12/28/03) EXCISION OF TOE NAIL, EXTERNAL APPROACH (04/10/18) GROUP PSYCHOTHERAPY (04/10/18) INDIVIDUAL PSYCHOTHERAPY, BEHAVIORAL (04/10/18) PSYCHIAT DRUG THERAP NEC (09/22/04) TETANUS TOXOID ADMINIST (12/28/03) Family History: States: Unknown Family Hx - Social History Hx Tobacco Use: No Hx Alcohol Use: No Hx Substance Use: No - Immunization History Hx Tetanus Toxoid Vaccination: No Hx Influenza Vaccination: No Hx Pneumococcal Vaccination: No Review Of Systems Except As Marked, All Systems Reviewed And Found Negative. Constitutional: Negative for: Fever, Weakness, Other (injury or trauma) Musculoskeletal: Positive for: Other (right finger and hand numbness). Negative for: Arm Pain Neurological: Negative for: Headache, Dizziness Physical Exam - Physical Exam Appears: Well, No Acute Distress Skin: Normal Color, Warm, Dry Head: Atraumatic, Normacephalic Eye(s): bilateral: Normal Inspection Neck: Normal Chest: Symmetrical Respiratory: No Accessory Muscle Use Extremity: Other (numbness to 1st, 2nd and 3rd right digits) Extremity: Bilateral: Normal Color And Temperature, Normal ROM (full), Other (Motor strength intact) Neurological/Psych: Oriented x3, Normal Motor, Normal Sensation Gait: Steady ED Course And Treatment O2 Sat by Pulse Oximetry: 98 (RA) Pulse Ox Interpretation: Normal Medical Decision Making Medical Decision Making: Time: 2021 Initial Plan: Cervical spine complete [rad] Glucose, POC Cervical Spine AP & Lateral [rad] Reevaluation xray present no preliminary changes Patient diagnosed with hand numbness, paresthesia and radicular pain in the right arm. He was provided with pain management contact information and advised to follow up. Disposition Counseled Patient/Family Regarding: Studies Performed, Diagnosis, Need For Followup, Rx Given - Disposition Referrals: Shaka Mcmillan MD [Staff Provider] - Disposition: HOME/ ROUTINE Disposition Time: 20:42 Condition: STABLE Additional Instructions: follow up with your doctor within 2 days call to make an appointment take medications as prescribed return to ER if symptoms worsens or progress Prescriptions: Lidocaine 5% [Lidoderm] 1 ea TD DAILY PRN #10 patch PRN Reason: Pain, Moderate (4-7) Instructions: Diabetic Neuropathy (DC), Radiculopathy (DC), Hand Numbness Forms: [facility] (Spanish), General Discharge Instructions - Clinical Impression Clinical Impression: Paresthesia, Hand numbness, Radicular pain in right arm - Scribe Statement The provider has reviewed the documentation as recorded by the Scribe (Chivo Yip) Provider Attestation: All medical record entries made by the Scribe were at my direction and personally dictated by me. I have reviewed the chart and agree that the record accurately reflects my personal performance of the history, physical exam, medical decision making, and the department course for this patient. I have also personally directed, reviewed, and agree with the discharge instructions and disposition.
[2018-09-14 21:06] VITALS: BP 141/72; PULSE 91; TEMP 98.4
[2018-09-14 21:22] VITALS: O2SAT 98
--- NOTE | 2018-09-15 16:34 | RAD ---
Date of service: 09/14/2018 PROCEDURE: Cervical Spine Radiographs. HISTORY: Pain. COMPARISON: None available. FINDINGS: BONES: Alignment maintained. No fracture. Dens Intact. DISC SPACES: Normal. SOFT TISSUES: Normal. No prevertebral soft tissue swelling. OTHER FINDINGS: None. IMPRESSION: Normal cervical spine radiographs
== END 2018-09-14 21:17 | disposition home or self-care (01) ==
LOC: C.ER 19:23
DX: R20.0 Anesthesia of skin (principal); R20.2 Paresthesia of skin; M79.601 Pain in right arm

== ENCOUNTER 2018-10-18 13:25 | Inpatient (IN) | payer MEDICARE, MEDICAID ==
[2018-10-18 13:26] VITALS: BMI 29.2
[2018-10-18 14:21] LABS: BASO # 0.1 K/uL (0.0-0.2); BASO % 0.5 % (0.0-2.0); EOS % 0.1 % (0.0-4.0); LYMPH # 1.6 K/uL (1.0-4.3); LYMPH % 13.3 % (20.0-40.0); MEAN CELL VOLUME 87.1 fL (80.0-94.0); MEAN CORPUSCULAR HEMOGLOBIN 28.9 pg (27.0-31.0); MEAN CORPUSCULAR HGB CONC 33.2 g/dL (33.0-37.0); MEAN PLATELET VOLUME 8.5 fL (7.2-11.7); MONO % 8.8 % (0.0-10.0); NEUT # 9.2 K/uL (1.8-7.0); NEUT % 77.3 % (50.0-75.0); RBC 5.67 Mil/uL (4.40-5.90); RED CELL DISTRIBUTION WIDTH 14.6 % (11.5-14.5); WHITE BLOOD COUNT 11.9 K/uL (4.8-10.8)
[2018-10-18 14:22] LABS: HEMOGLOBIN 16.4 g/dL (12.0-18.0)
[2018-10-18 14:35] LABS: ALB/GLOB RATIO 1.4 (1.0-2.1); ALT/SGPT 57 U/L (21-72); AST/SGOT 43 U/L (17-59); BLOOD UREA NITROGEN 39 mg/dL (9-20); CALCIUM 8.9 mg/dl (8.6-10.4); GFR NON-AFRICAN AMERICAN > 60
--- NOTE | 2018-10-18 14:55 | CT ---
Date of service: 10/18/2018 PROCEDURE: CT HEAD WITHOUT CONTRAST. HISTORY: AMS COMPARISON: Noncontrast head CT performed 04/03/18, brain MRI without IV contrast performed 04/04/18 TECHNIQUE: Axial computed tomography images were obtained through the head/brain without intravenous contrast. Radiation dose: Total exam DLP = 1236.57 mGy-cm. This CT exam was performed using one or more of the following dose reduction techniques: Automated exposure control, adjustment of the mA and/or kV according to patient size, and/or use of iterative reconstruction technique. FINDINGS: Mild streak artifact limits evaluation of the skull base. HEMORRHAGE: No intracranial hemorrhage. BRAIN: Diffuse atrophy with prominence of the ventricles and sulci noted. No mass effect or edema. Intracranial atherosclerosis. Scattered periventricular and subcortical white matter hypodensities, which are nonspecific, but often seen with chronic microvascular ischemic disease. Please note that MRI with diffusion imaging is more sensitive in the detection of acute ischemic event. VENTRICLES: No hydrocephalus. CALVARIUM: Unremarkable. PARANASAL SINUSES: Unremarkable as visualized. No significant inflammatory changes. MASTOID AIR CELLS: Unremarkable as visualized. No inflammatory changes. OTHER FINDINGS: None. IMPRESSION: Generalized atrophy. Nonspecific white matter changes.
[2018-10-18] MEDS ORDERED: Sodium Chloride 0.9% 1,000 ML IV ONE (15:02)
--- NOTE | 2018-10-18 15:12 | C.PDOC ---
History Of Present Illness 68 y/o male presents via EMS, brought in after he was found walking around without pants on today. Of note patient lives at home. Per sister via phone call, there is no family to care for patient. Patient has prior hx of psychiatric illness, was recently admitted to the [facility] unit at [place]. At present patient is ambulatory and is awake, alert, orientedx2. Pt arrives with no complaints. There is no apparent injury or unilateral weakness, slurred speech, or facial droop. Time Seen by Provider: 10/18/18 13:31 Chief Complaint (Nursing): Altered Mental Status History Per: Patient History/Exam Limitations: Clinical Condition Onset/Duration Of Symptoms: Unknown Current Symptoms Are (Timing): Still Present Speech Is: Normal Past Medical History Reviewed: Historical Data, Nursing Documentation, Vital Signs Vital Signs: Last Vital Signs Temp 97.2 F L 10/18/18 13:30 Pulse 86 10/18/18 13:30 Resp 20 10/18/18 13:30 BP 162/74 H 10/18/18 13:30 Pulse Ox 100 10/18/18 13:30 - Medical History PMH: Anxiety, Bipolar Disorder, Diabetes, HTN Denies: Chronic Kidney Disease - [facility] Procedures CLOSURE SKIN & SUBCUTANEOUS NEC (12/28/03) EXCISION OF TOE NAIL, EXTERNAL APPROACH (04/10/18) GROUP PSYCHOTHERAPY (04/10/18) INDIVIDUAL PSYCHOTHERAPY, BEHAVIORAL (04/10/18) PSYCHIAT DRUG THERAP NEC (09/22/04) TETANUS TOXOID ADMINIST (12/28/03) Family History: States: Unknown Family Hx - Social History Hx Tobacco Use: No Hx Alcohol Use: No Hx Substance Use: No - Immunization History Hx Tetanus Toxoid Vaccination: No Hx Influenza Vaccination: No Hx Pneumococcal Vaccination: No Review Of Systems Review Of Systems: ROS cannot be obtained secondary to pt's inabilty to answer questions. Physical Exam - Physical Exam Appears: Non-toxic, No Acute Distress Skin: Warm, Dry Head: Atraumatic, Normacephalic Eye(s): bilateral: Normal Inspection (conjunctiva clear), PERRL, EOMI Oral Mucosa: Dry Neck: Normal ROM Chest: Symmetrical Cardiovascular: Rhythm Regular, No Murmur Respiratory: Normal Breath Sounds, No Rales, No Rhonchi, No Wheezing Gastrointestinal/Abdominal: Soft, No Tenderness, No Distention Extremity: Bilateral: Atraumatic (no gross swelling or ecchymosis), Normal Color And Temperature, Normal ROM (moving all extremities) Pulses: Left Dorsalis Pedis: Normal, Right Dorsalis Pedis: Normal Neurological/Psych: Other (Oriented x2, only to person and place) Disoriented To: Time, Situation Other Neurological Findings: No Facial Palsy ED Course And Treatment - Laboratory Results Result Diagrams: 10/21/18 08:38 10/21/18 08:38 Lab Results: Troponin I < 0.0120 ng/mL (0.00-0.120) 10/18/18 14:17 Total Bilirubin 1.1 mg/dL (0.2-1.3) 10/18/18 14:17 AST 43 U/L (17-59) 10/18/18 14:17 ALT 57 U/L (21-72) 10/18/18 14:17 Alkaline Phosphatase 147 U/L (38-126) H D 10/18/18 14:17 Total Protein 8.7 g/dL (6.3-8.3) H 10/18/18 14:17 Albumin 5.0 g/dL (3.5-5.0) D 10/18/18 14:17 Globulin 3.7 gm/dL (2.2-3.9) 10/18/18 14:17 Albumin/Globulin Ratio 1.4 (1.0-2.1) 10/18/18 14:17 ECG: Interpreted By Me, Viewed By Me ECG Rhythm: Sinus Rhythm Interpretation Of ECG: NSR at 71 bpm, normal intervals, with some artifact and nonspecific ST changes O2 Sat by Pulse Oximetry: 100 (RA) Pulse Ox Interpretation: Normal - Other Rad CXR X-Ray: Read By Radiologist Interpretation: Accession No. : [id number]. Patient Name / ID : SANDEEP KELLEY / [id number]. Exam Date : 10/18/2018 14:08:43 ( Approved ). Study Comment : Sex / Age : M / 68Y. Creator : dilip smith. Dictator : Marina Albert MD. Personnel Monitor : Senior Risk Manager : Marina Albert MD. Approver2 : Report Date : 10/18/2018 14:18:30. My Comment : . HISTORY: AMS. COMPARISON: Chest x-ray performed 04/03/18. TECHNIQUE: Chest, one view. FINDINGS: Examination limited by habitus. LUNGS: Hypoinflation. Minimal basilar atelectasis. No focal consolidation. Please note that chest x-ray has limited sensitivity for the detection of pulmonary masses. PLEURA: No significant pleural effusion identified. No definite pneumothorax . CARDIOVASCULAR: Heart size appears top normal. No significant atherosclerotic calcification present. OSSEOUS STRUCTURES: No acute osseous abnormality identified. VISUALIZED UPPER ABDOMEN: Unremarkable. OTHER FINDINGS: None. IMPRESSION: Hypoinflation. Minimal basilar atelectasis. - CT Scan/US CT Head Other Rad Studies (CT/US): Radiology Report Reviewed CT/US Interpretation: Accession No. : [id number]. Patient Name / ID : LOTTIE KELLEY / [id number]. Exam Date : 10/18/2018 14:26:24 ( Approved ). Study Comment : Sex / Age : M / 68Y. Creator : Leann Hou. Dictator : Marina Albert MD. Personnel Monitor : Senior Risk Manager : Marina Albert MD. Approver2 : Report Date : 10/18/2018 14:39:17. My Comment : . Date of service: 10/18/2018. PROCEDURE: CT HEAD WITHOUT CONTRAST. HISTORY: AMS. COMPARISON: Noncontrast head CT performed 04/03/18, brain MRI without IV contrast performed 04/04/18. TECHNIQUE: Axial computed tomography images were obtained through the head/brain without intravenous contrast. Radiation dose: Total exam DLP = 1236.57 mGy-cm. This CT exam was performed using one or more of the following dose reduction techniques: Automated exposure control, adjustment of the mA and/or kV according to patient size, and/or use of iterative reconstruction technique. FINDINGS: Mild streak artifact limits eval uation of the skull base. HEMORRHAGE: No intracranial hemorrhage. BRAIN: Diffuse atrophy with prominence of the ventricles and sulci noted. No mass effect or edema. Intracranial atherosclerosis. Scattered periventricular and subcortical white matter hypodensities, which are nonspecific, but often seen with chronic microvascular ischemic disease. Please note that MRI with diffusion imaging is more sensitive in the detection of acute ischemic event. VENTRICLES: No hydrocephalus. CALVARIUM: Unremarkable. PARANASAL SINUSES: Unremarkable as visualized. No significant inflammatory changes. MASTOID AIR CELLS: Unremarkable as visualized. No inflammatory changes. OTHER FINDINGS: None. IMPRESSION: Generalized atrophy. Nonspecific white matter changes. Medical Decision Making Medical Decision Making: Impression: Altered mental status, r/o intoxication Plan: --CMP --CBC --UDS --[place] --Ammonia --Alcohol serum --Troponin I --Urinalysis --Urine culture --Chest x-ray --CT Head --IV fluids infusing Labs and imaging reviewed. 17:[address] Jennings, medicine on-call, accepts patient to service. Disposition Counseled Patient/Family Regarding: Studies Performed, Diagnosis - Disposition Disposition: HOSPITALIZED Disposition Time: 17:35 Condition: STABLE - Clinical Impression Clinical Impression: Change in mental state, Hyperglycemia, Dehydration - Scribe Statement The provider has reviewed the documentation as recorded by the Roderick Frazier Provider Attestation: All medical record entries made by the Roderick were at my direction and personally dictated by me. I have reviewed the chart and agree that the record accurately reflects my personal performance of the history, physical exam, medical decision making, and the department course for this patient. I have also personally directed, reviewed, and agree with the discharge instructions and disposition.
[2018-10-18] MEDS ORDERED: Sodium Chloride 0.9% 1,000 ML ONE (15:16)
--- NOTE | 2018-10-18 15:30 | RAD ---
HISTORY: AMS COMPARISON: Chest x-ray performed 04/03/18 TECHNIQUE: Chest, one view. FINDINGS: Examination limited by habitus. LUNGS: Hypoinflation. Minimal basilar atelectasis. No focal consolidation. Please note that chest x-ray has limited sensitivity for the detection of pulmonary masses. PLEURA: No significant pleural effusion identified. No definite pneumothorax . CARDIOVASCULAR: Heart size appears top normal. No significant atherosclerotic calcification present. OSSEOUS STRUCTURES: No acute osseous abnormality identified. VISUALIZED UPPER ABDOMEN: Unremarkable. OTHER FINDINGS: None. IMPRESSION: Hypoinflation. Minimal basilar atelectasis.
[2018-10-18 16:27] LABS: SQUAMOUS EPITHIAL < 1 /hpf (0-5); URINE BILIRUBIN NEGATIVE (NEGATIVE); URINE BLOOD NEGATIVE (NEGATIVE); URINE CLARITY Clear (Clear); URINE COLOR Yellow (YELLOW); URINE GLUCOSE (UA) NORMAL (Normal); URINE LEUKOCYTE ESTERASE NEG Leu/uL (Negative); URINE PROTEIN 1+ mg/dL (NEGATIVE)
[2018-10-18 16:50] LABS: BARBITURATES, UR NEGATIVE (NEGATIVE); BENZODIAZEPINES, UR NEGATIVE (NEGATIVE); OPIATES, UR NEGATIVE (NEGATIVE); PHENCYCLIDINE, UR NEGATIVE (NEGATIVE)
--- NOTE | 2018-10-18 18:40 | CP.PCM.HP ---
History of Present Illness - History of Present Illness History of Present Illness: 68 y/o male presents via EMS, brought in after he was found walking around without pants on today. Of note patient lives at home. Per sister via phone call, there is no family to care for patient. Patient has prior hx of psychiatric illness, was recently admitted to the [facility] unit at [place]. At present patient is ambulatory and is awake, alert, orientedx2. Pt arrives with no complaints Present on Admission - Present on Admission Any Indicators Present on Admission: No Review of Systems - Review of Systems All systems: reviewed and no additional remarkable complaints except (none) Past Patient History - Infectious Disease Hx of Infectious Diseases: None - Tetanus Immunizations Tetanus Immunization: Unknown - Past Medical History & Family History Past Medical History?: Yes - Past Social History Smoking Status: Never Smoked - CARDIAC Hx Hypertension: Yes - PULMONARY Hx Respiratory Disorders: No - NEUROLOGICAL Hx Neurological Disorder: No - HEENT Hx HEENT Problems: No - RENAL Hx Chronic Kidney Disease: No - ENDOCRINE/METABOLIC Hx Endocrine Disorders: Yes Hx Diabetes Mellitus Type 2: Yes ((from previous triage)) - HEMATOLOGICAL/ONCOLOGICAL Hx Blood Disorders: No - INTEGUMENTARY Hx Dermatological Problems: No - MUSCULOSKELETAL/RHEUMATOLOGICAL Hx Musculoskeletal Disorders: Yes Hx Falls: Yes - GASTROINTESTINAL Hx Gastrointestinal Disorders: No - GENITOURINARY/GYNECOLOGICAL Hx Genitourinary Disorders: No - PSYCHIATRIC Hx Anxiety: Yes Hx Bipolar Disorder: Yes Hx Substance Use: No - SURGICAL HISTORY Hx Surgeries: No - ANESTHESIA Hx Anesthesia: No (unknown, pt unable to recall) Meds Allergies/Adverse Reactions: Allergies Allergy/AdvReac Type Severity Reaction Status Date / Time haloperidol [From Haldol] Allergy ANAPHYLAXIS Verified 10/18/18 13:30 Penicillins Allergy ANAPHYLAXIS Verified 10/18/18 13:30 Physical Exam - Head Exam Head Exam: ATRAUMATIC, NORMAL INSPECTION, NORMOCEPHALIC - Eye Exam Eye Exam: EOMI, Normal appearance, PERRL - ENT Exam ENT Exam: Mucous Membranes Moist, Normal Exam - Neck Exam Neck exam: Positive for: Normal Inspection - Respiratory Exam Respiratory Exam: Clear to Auscultation Bilateral, NORMAL BREATHING PATTERN - Cardiovascular Exam Cardiovascular Exam: REGULAR RHYTHM - GI/Abdominal Exam GI & Abdominal Exam: Normal Bowel Sounds, Soft. absent: Tenderness - Extremities Exam Extremities exam: Positive for: normal inspection - Back Exam Back exam: NORMAL INSPECTION - Neurological Exam Neurological exam: Alert, CN II-XII Intact, Normal Gait, Reflexes Normal Results - Vital Signs Recent Vital Signs: Last Vital Signs Temp 97.2 F L 10/18/18 13:30 Pulse 110 H 10/18/18 17:12 Resp 19 10/18/18 17:12 BP 146/69 10/18/18 17:12 Pulse Ox 100 10/18/18 17:40 - Labs Result Diagrams: 10/18/18 14:17 10/18/18 14:17 Labs: Laboratory Results - last 24 hr 10/18/18 10/18/18 10/18/18 14:17 14:17 14:17 WBC 11.9 H RBC 5.67 Hgb 16.4 D Hct 49.3 MCV 87.1 MCH 28.9 MCHC 33.2 RDW 14.6 H Plt Count 213 MPV 8.5 Neut % (Auto) 77.3 H Lymph % (Auto) 13.3 L Terry % (Auto) 8.8 Eos % (Auto) 0.1 Baso % (Auto) 0.5 Neut # (Auto) 9.2 H Lymph # (Auto) 1.6 Terry # (Auto) 1.0 H Eos # (Auto) 0.0 Baso # (Auto) 0.1 Sodium 138 Potassium 4.1 Chloride 103 Carbon Dioxide 19 L Anion Gap 20 BUN 39 H Creatinine 0.9 Est GFR ( Amer) > 60 Est GFR (Non-Af Amer) > 60 Random Glucose 164 H D Calcium 8.9 Total Bilirubin 1.1 AST 43 ALT 57 Alkaline Phosphatase 147 H D Ammonia 9 Troponin I < 0.0120 Total Protein 8.7 H Albumin 5.0 D Globulin 3.7 Albumin/Globulin Ratio 1.4 Urine Color Urine Clarity Urine pH Ur Specific [place] Urine Protein Urine Glucose (UA) Urine Ketones Urine Blood Urine Nitrate Urine Bilirubin Urine Urobilinogen Ur Leukocyte Esterase Urine WBC (Auto) Urine RBC (Auto) Ur Squamous Epith Cells Urine Opiates Screen Urine Methadone Screen Ur Barbiturates Screen Ur Phencyclidine Scrn Ur Amphetamines Screen U Benzodiazepines Scrn [place] U Oth Cocaine Metabols U Cannabinoids Screen Alcohol, Quantitative < 10 10/18/18 10/18/18 10/18/18 15:12 16:10 16:10 WBC RBC Hgb Hct MCV MCH MCHC RDW Plt Count MPV Neut % (Auto) Lymph % (Auto) Terry % (Auto) Eos % (Auto) Baso % (Auto) Neut # (Auto) Lymph # (Auto) Terry # (Auto) Eos # (Auto) Baso # (Auto) Sodium Potassium Chloride Carbon Dioxide Anion Gap BUN Creatinine Est GFR ( Amer) Est GFR (Non-Af Amer) Random Glucose Calcium Total Bilirubin AST ALT Alkaline Phosphatase Ammonia Troponin I Total Protein Albumin Globulin Albumin/Globulin Ratio Urine Color Yellow Urine Clarity Clear Urine pH 5.0 Ur Specific [place] 1.023 Urine Protein 1+ H Urine Glucose (UA) Normal Urine Ketones 1+ H Urine Blood Negative Urine Nitrate Negative Urine Bilirubin Negative Urine Urobilinogen 4.0 Ur Leukocyte Esterase Neg Urine WBC (Auto) 1 Urine RBC (Auto) 1 Ur Squamous Epith Cells < 1 Urine Opiates Screen Negative Urine Methadone Screen Negative Ur Barbiturates Screen Negative Ur Phencyclidine Scrn Negative Ur Amphetamines Screen Negative U Benzodiazepines Scrn Negative [place] < 0.2 L U Oth Cocaine Metabols Negative U Cannabinoids Screen Negative Alcohol, Quantitative Assessment & Plan (1) Change in mental state Status: Acute (2) Diabetes Status: Chronic
[2018-10-18] MEDS: (Novolin R) Insulin Human Regular 100 units/ml vial SC SCH (23:09)
[2018-10-19] MEDS: (Novolin R) Insulin Human Regular 100 units/ml vial SC SCH ×4 (09:18→22:11)
[2018-10-19] MEDS ORDERED: (Novolin R) Insulin Human Regular 100 units/ml vial ONE (09:20)
[2018-10-19] MEDS: Pantoprazole 40 mg EC Tab PO SCH (10:21)
[2018-10-19] MEDS: Enoxaparin 40 mg Syringe SC SCH (10:21)
--- NOTE | 2018-10-19 11:19 | CP.PCM.PN ---
Subjective - Date & Time of Evaluation Date of Evaluation: 10/19/18 Time of Evaluation: 11:18 - Subjective Subjective: patient has periods of confusion. Vital signs are stable Physical examination unchanged Continue monitoring blood pressure and sugar and psych evaluation Objective - Vital Signs/Intake and Output Vital Signs (last 24 hours): Temp Pulse Resp BP Pulse Ox 98.5 F 79 14 149/81 99 10/19/18 09:00 10/19/18 10:20 10/19/18 09:00 10/19/18 10:20 10/19/18 10:20 - Medications Medications: Current Medications Enoxaparin Sodium (Lovenox) 40 mg SC DAILY [facility] Last Admin: 10/19/18 10:21 Dose: 40 mg Insulin Human Regular (Novolin R) 0 unit SC [facility]; Protocol Last Admin: 10/19/18 09:18 Dose: 6 units Lisinopril (Zestril) 20 mg PO DAILY [facility] Last Admin: 10/19/18 10:21 Dose: 20 mg Metformin HCl (Glucophage) 1,000 mg PO BIDCC [facility] Last Admin: 10/19/18 09:27 Dose: 1,000 mg Olanzapine (Zyprexa) 10 mg PO HS [facility] Last Admin: 10/18/18 22:55 Dose: 10 mg Pantoprazole Sodium (Protonix Ec Tab) 40 mg PO DAILY [facility] Last Admin: 10/19/18 10:21 Dose: 40 mg - Labs Labs: 10/18/18 14:17 10/18/18 14:17 Assessment and Plan (1) Change in mental state Status: Acute (2) Diabetes Status: Chronic
[2018-10-20] MEDS: (Novolin R) Insulin Human Regular 100 units/ml vial SC SCH ×4 (08:36→22:08)
[2018-10-20] MEDS: Pantoprazole 40 mg EC Tab PO SCH (09:24)
[2018-10-20] MEDS: Enoxaparin 40 mg Syringe SC SCH (09:25)
--- NOTE | 2018-10-20 12:26 | CP.PCM.PN ---
Subjective - Date & Time of Evaluation Date of Evaluation: 10/20/18 Time of Evaluation: 12:26 - Subjective Subjective: patient has periods of confusion. Vital signs are stable Physical examination unchanged Continue monitoring blood pressure and sugar and psych evaluation Objective Objective - Vital Signs/Intake and Output Vital Signs (last 24 hours): Temp Pulse Resp BP Pulse Ox 97.7 F 60 20 105/68 95 10/20/18 07:46 10/20/18 07:46 10/20/18 07:46 10/20/18 07:46 10/20/18 07:46 - Medications Medications: Current Medications Enoxaparin Sodium (Lovenox) 40 mg SC DAILY [facility] Last Admin: 10/20/18 09:25 Dose: 40 mg Insulin Human Regular (Novolin R) 0 unit SC [facility]; Protocol Last Admin: 10/20/18 08:36 Dose: Not Given Lisinopril (Zestril) 20 mg PO DAILY [facility] Last Admin: 10/20/18 09:24 Dose: 20 mg Metformin HCl (Glucophage) 1,000 mg PO BIDCC [facility] Last Admin: 10/20/18 09:24 Dose: 1,000 mg Olanzapine (Zyprexa) 10 mg PO HS [facility] Last Admin: 10/19/18 22:11 Dose: 10 mg Pantoprazole Sodium (Protonix Ec Tab) 40 mg PO DAILY [facility] Last Admin: 10/20/18 09:24 Dose: 40 mg - Labs Labs: 10/18/18 14:17 10/18/18 14:17 Assessment and Plan (1) Change in mental state Status: Acute (2) Diabetes Status: Chronic
[2018-10-21] MEDS: (Novolin R) Insulin Human Regular 100 units/ml vial SC SCH ×4 (08:16→21:58)
[2018-10-21] MEDS: Enoxaparin 40 mg Syringe SC SCH (09:06)
[2018-10-21] MEDS: Pantoprazole 40 mg EC Tab PO SCH (09:06)
[2018-10-21 09:09] LABS: BASO # 0.1 K/uL (0.0-0.2); BASO % 0.4 % (0.0-2.0); EOS # 0.2 K/uL (0.0-0.7); EOS % 2.1 % (0.0-4.0); HEMOGLOBIN 14.2 g/dL (12.0-18.0); LYMPH # 2.9 K/uL (1.0-4.3); LYMPH % 25.9 % (20.0-40.0); MEAN CELL VOLUME 88.1 fL (80.0-94.0); MEAN CORPUSCULAR HEMOGLOBIN 28.4 pg (27.0-31.0); MEAN CORPUSCULAR HGB CONC 32.3 g/dL (33.0-37.0); MEAN PLATELET VOLUME 9.8 fL (7.2-11.7); MONO # 0.9 K/uL (0.0-0.8); MONO % 8.3 % (0.0-10.0); NEUT # 7.1 K/uL (1.8-7.0); NEUT % 63.3 % (50.0-75.0); NRBC % 0.1 % (0.0-2.0); RED CELL DISTRIBUTION WIDTH 14.5 % (11.5-14.5); WHITE BLOOD COUNT 11.2 K/uL (4.8-10.8)
[2018-10-21 09:13] LABS: ALB/GLOB RATIO 1.3 (1.0-2.1); ALBUMIN 3.8 g/dL (3.5-5.0); ALT/SGPT 53 U/L (21-72); AST/SGOT 68 U/L (17-59); BLOOD UREA NITROGEN 55 mg/dL (9-20); CALCIUM 8.8 mg/dl (8.6-10.4); GFR NON-AFRICAN AMERICAN 55
--- NOTE | 2018-10-21 12:12 | CP.PCM.PN ---
Subjective - Date & Time of Evaluation Date of Evaluation: 10/21/18 Time of Evaluation: 12:12 - Subjective Subjective: patient has periods of confusion. Vital signs are stable Physical examination unchanged Continue monitoring blood pressure and sugar and psych evaluation Objective - Vital Signs/Intake and Output Vital Signs (last 24 hours): Temp Pulse Resp BP Pulse Ox 98.2 F 83 20 95/57 L 95 10/21/18 07:39 10/21/18 12:00 10/21/18 07:39 10/21/18 07:39 10/21/18 07:39 - Medications Medications: Current Medications Enoxaparin Sodium (Lovenox) 40 mg SC DAILY [facility] Last Admin: 10/21/18 09:06 Dose: 40 mg Insulin Human Regular (Novolin R) 0 unit SC [facility]; Protocol Last Admin: 10/21/18 08:16 Dose: Not Given Lisinopril (Zestril) 20 mg PO DAILY [facility] Last Admin: 10/21/18 09:06 Dose: Not Given Metformin HCl (Glucophage) 1,000 mg PO BIDCC [facility] Last Admin: 10/21/18 09:06 Dose: 1,000 mg Olanzapine (Zyprexa) 10 mg PO HS [facility] Last Admin: 10/20/18 22:07 Dose: 10 mg Pantoprazole Sodium (Protonix Ec Tab) 40 mg PO DAILY [facility] Last Admin: 10/21/18 09:06 Dose: 40 mg - Labs Labs: 10/21/18 08:38 10/21/18 08:38 Assessment and Plan (1) Change in mental state Status: Acute (2) Diabetes Status: Chronic
[2018-10-22] MEDS: (Novolin R) Insulin Human Regular 100 units/ml vial SC SCH ×4 (07:37→23:11)
[2018-10-22] MEDS: Enoxaparin 40 mg Syringe SC SCH (09:20)
[2018-10-22] MEDS: Pantoprazole 40 mg EC Tab PO SCH (09:20)
--- NOTE | 2018-10-22 11:42 | CP.PCM.PN ---
Subjective - Date & Time of Evaluation Date of Evaluation: 10/22/18 Time of Evaluation: 11:42 - Subjective Subjective: patient has periods of confusion. Vital signs are stable Physical examination unchanged Continue monitoring blood pressure and sugar and psych evaluation Objective - Vital Signs/Intake and Output Vital Signs (last 24 hours): Temp Pulse Resp BP Pulse Ox 98.3 F 73 18 97/64 L 94 L 10/22/18 08:22 10/22/18 08:22 10/22/18 08:22 10/22/18 08:22 10/22/18 08:22 Intake and Output: 10/21/18 10/22/18 23:59 11:59 Intake Total 800 Output Total 300 Balance 500 - Medications Medications: Current Medications Enoxaparin Sodium (Lovenox) 40 mg SC DAILY [facility] Last Admin: 10/22/18 09:20 Dose: 40 mg Insulin Human Regular (Novolin R) 0 unit SC [facility]; Protocol Last Admin: 10/22/18 11:35 Dose: Not Given Lisinopril (Zestril) 20 mg PO DAILY [facility] Last Admin: 10/22/18 09:20 Dose: Not Given Metformin HCl (Glucophage) 1,000 mg PO BIDCC [facility] Last Admin: 10/22/18 09:20 Dose: 1,000 mg Olanzapine (Zyprexa) 10 mg PO HS [facility] Last Admin: 10/21/18 21:17 Dose: 10 mg Pantoprazole Sodium (Protonix Ec Tab) 40 mg PO DAILY [facility] Last Admin: 10/22/18 09:20 Dose: 40 mg - Labs Labs: 10/21/18 08:38 10/21/18 08:38 Assessment and Plan (1) Change in mental state Status: Acute (2) Diabetes Status: Chronic
--- NOTE | 2018-10-22 15:21 | PCM.PSYCH ---
Initial Psychiatric Evaluation - Initial Psychiatric Evaluation Type of Admission: Voluntary Legal Status: Capacity History of Present Illness and Precipitating Events: Patient is a 68 year old male that was admitted to [facility] on 10/18 when he was found wandering the street without any pants on. The patient was consulted by psychiatry. patient has a past psychiatric history of anxiety and bipolar but was recently hospitalized at the [facility] unit at [place]. Patient appeared to be disheveled and when questioned was awake, alert and oriented to person and place but was not oriented to time. He appeared paranoid and delusional. Patient ap pears somewhat disorganized and internally preoccupied at the time of interview. Patient was able to remember waking up in the hospital but was unable to remember what had happened prior to the beginning of the incident or whether he has had similar experiences in the past. When questioned further, patient had limited memory of daily life activities for the last three months, being unable to recall where he was, who he spent his time with or what he did. Patient denies any previous or current drinking or drug use but does attest to smoking tobacco through a pipe multiple time a day. Current Medications: Active Medications Generic Name Dose Route Start Last Admin Trade Name Freq PRN Reason Stop Dose Admin Enoxaparin Sodium 40 mg 10/19/18 10:00 10/22/18 09:20 Lovenox SC 40 mg DAILY [facility] Administration Insulin Human Regular 0 unit 10/18/18 22:00 10/22/18 11:35 Novolin R SC Not Given ACHS [facility] Protocol Lisinopril 20 mg 10/19/18 10:00 10/22/18 09:20 Zestril PO Not Given DAILY [facility] Metformin HCl 1,000 mg 10/19/18 08:00 10/22/18 09:20 Glucophage PO 1,000 mg BIDCC [facility] Administration Olanzapine 10 mg 10/18/18 22:00 10/21/18 21:17 Zyprexa PO 10 mg HS [facility] Administration Pantoprazole Sodium 40 mg 10/19/18 10:00 10/22/18 09:20 Protonix Ec Tab PO 40 mg DAILY [facility] Administration Past Psychiatric History - Past Psychiatric History Previous Treatment History: Inpatient Pertinent Medical Hx (Current Medical&Sleep Prob, Allergies): Allergies Allergy/AdvReac Type Severity Reaction Status Date / Time haloperidol [From Haldol] Allergy ANAPHYLAXIS Verified 10/18/18 13:30 Penicillins Allergy ANAPHYLAXIS Verified 10/18/18 13:30 Glipizide [Glucotrol] 10 mg PO DAILY #30 tablet 02/08/18 Lisinopril [Prinivil] 20 mg PO DAILY #30 tablet 02/08/18 MetFORMIN [glucoPHAGE] 1,000 mg PO BID #60 tab 02/08/18 Aspirin 325 mg PO DAILY tab 04/10/18 Ciprofloxacin [Cipro] 500 mg PO Q12H tab 04/10/18 Enoxaparin [Lovenox] 40 mg SQ DAILY 04/10/18 Insulin Aspart, Recombinant [Novolog] 0 unit SQ 04/10/18 OLANZapine [Zyprexa] 10 mg PO HS tab 04/10/18 Pantoprazole [Protonix EC Tab] 40 mg PO DAILY ect 04/10/18 Lidocaine 5% [Lidoderm] 1 ea TD DAILY PRN #10 patch 09/14/18 Review of Systems - Review of Systems All systems: reviewed and no additional remarkable complaints except - Psychiatric Psychiatric: Anxiety, Irritability. absent: Suicidal Ideation Mental Status Examination - Personal Presentation Personal Presentation: Looks stated age - Affect Affect: Constricted, Depressed - Motor Activity Motor Activity: Calm - Reliability in Providing Information Reliability in Providing Information: Good - Speech Speech: Disorganized - Mood Mood: Depressed, Anxious - Formal Thought Process Formal Thought Process: Hallucinations, Delusions, Paranoia, Loosening of associations, Flight of ideas - Hallucinations/Delusions Hallucinations: Visual, Auditory - Obsessions/Compulsions Obsessions: No Compulsions: No - Cognitive Functions Orientation: Person, Place, Situation, Time Sensorium: Alert Attention/Concentration: Attentive Abstract Thinking: [place] Estimate of Intelligence: Below average Judgement: Imparied, as evidence by: Poor judgement, Imparied, as evidence by: Lack of insight into illness - Risk Risk: Diminished functioning - Limitations Limitations: Living alone DSM 5 DX - DSM 5 DSM 5 Diagnosis: Schizoaffective disorder bipolar type - Recommended/Plan of Treatment Treatment Recommendations and Plan of Treatment: Olanzapine for psychosis Depakote as a mood stabilizer Hydroxyzine for anxiety Trazodone for insomnia - Smoking Cessation Smoking Cessation Initiated: No
[2018-10-23] MEDS: (Novolin R) Insulin Human Regular 100 units/ml vial SC SCH ×4 (08:26→21:48)
[2018-10-23] MEDS: Pantoprazole 40 mg EC Tab PO SCH (09:58)
[2018-10-23] MEDS: Enoxaparin 40 mg Syringe SC SCH (09:58)
--- NOTE | 2018-10-23 12:10 | CP.PCM.PN ---
Subjective - Date & Time of Evaluation Date of Evaluation: 10/23/18 Time of Evaluation: 12:09 - Subjective Subjective: patient has periods of confusion. Vital signs are stable Physical examination unchanged Continue monitoring blood pressure and sugar and psych evaluation patient will need long-term placement Objective - Vital Signs/Intake and Output Vital Signs (last 24 hours): Temp Pulse Resp BP Pulse Ox 98 F 87 20 121/77 95 10/22/18 23:40 10/23/18 09:55 10/22/18 23:40 10/23/18 09:55 10/22/18 23:40 - Medications Medications: Current Medications Enoxaparin Sodium (Lovenox) 40 mg SC [facility]ILY [facility] Last Admin: 10/23/18 09:58 Dose: 40 mg Insulin Human Regular (Novolin R) 0 unit SC [facility]; Protocol Last Admin: 10/23/18 08:26 Dose: Not Given Lisinopril (Zestril) 20 mg PO DAILY [facility] Last Admin: 10/23/18 09:58 Dose: 20 mg Metformin HCl (Glucophage) 1,000 mg PO [facility]IDCC [facility] Last Admin: 10/23/18 08:36 Dose: 1,000 mg Olanzapine (Zyprexa) 10 mg PO HS [facility] Last Admin: 10/22/18 21:25 Dose: 10 mg Pantoprazole Sodium (Protonix Ec Tab) 40 mg PO DAILY [facility] Last Admin: 10/23/18 09:58 Dose: 40 mg - Labs Labs: 10/21/18 08:38 10/21/18 08:38 Assessment and Plan (1) Change in mental state Status: Acute (2) Diabetes Status: Chronic
[2018-10-24] MEDS: (Novolin R) Insulin Human Regular 100 units/ml vial SC SCH ×4 (07:10→22:09)
[2018-10-24] MEDS: Enoxaparin 40 mg Syringe SC SCH (09:23)
[2018-10-24] MEDS: Pantoprazole 40 mg EC Tab PO SCH (09:23)
[2018-10-24] MEDS: Divalproex 250 mg DR Tab PO SCH ×2 (11:26→17:31)
--- NOTE | 2018-10-24 12:16 | CP.PCM.PN ---
Subjective - Date & Time of Evaluation Date of Evaluation: 10/24/18 Time of Evaluation: 12:16 - Subjective Subjective: patient has periods of confusion. Vital signs are stable Physical examination unchanged Continue monitoring blood pressure and sugar and psych evaluation patient will need long-term placement Objective - Vital Signs/Intake and Output Vital Signs (last 24 hours): Temp Pulse Resp BP Pulse Ox 98.9 F 76 18 110/62 96 10/24/18 08:00 10/24/18 08:00 10/24/18 08:00 10/24/18 08:00 10/24/18 08:00 Intake and Output: 10/24/18 10/24/18 11:59 23:59 Intake Total 200 Balance 200 - Medications Medications: Current Medications Divalproex Sodium (Depakote Dr) 250 mg PO BID [facility] Last Admin: 10/24/18 11:26 Dose: 250 mg Enoxaparin Sodium (Lovenox) 40 mg SC DAILY [facility] Last Admin: 10/24/18 09:23 Dose: 40 mg Hydroxyzine HCl (Atarax) 25 mg PO Q6 PRN PRN Reason: Agitation Insulin Human Regular (Novolin R) 0 unit SC [facility]; Protocol Last Admin: 10/24/18 07:10 Dose: Not Given Lisinopril (Zestril) 20 mg PO DAILY [facility] Last Admin: 10/24/18 09:23 Dose: 20 mg [facility] Last Admin: 10/24/18 09:23 Dose: 1,000 mg Olanzapine (Zyprexa) 10 mg PO HS [facility] Last Admin: 10/23/18 21:35 Dose: 10 mg Pantoprazole Sodium (Protonix Ec Tab) 40 mg PO DAILY [facility] Last Admin: 10/24/18 09:23 Dose: 40 mg - Labs Labs: 10/21/18 08:38 10/21/18 08:38 Assessment and Plan (1) Change in mental state Status: Acute (2) Diabetes Status: Chronic
[2018-10-25] MEDS: (Novolin R) Insulin Human Regular 100 units/ml vial SC SCH ×4 (08:02→21:48)
[2018-10-25] MEDS: Enoxaparin 40 mg Syringe SC SCH (09:11)
[2018-10-25] MEDS: Divalproex 250 mg DR Tab PO SCH ×2 (09:11→18:35)
[2018-10-25] MEDS: Pantoprazole 40 mg EC Tab PO SCH (09:11)
--- NOTE | 2018-10-25 12:15 | CP.PCM.PN ---
Subjective - Date & Time of Evaluation Date of Evaluation: 10/25/18 Time of Evaluation: 12:15 - Subjective Subjective: patient has periods of confusion. Vital signs are stable Physical examination unchanged Continue monitoring blood pressure and sugar and psych evaluation Objective - Vital Signs/Intake and Output Vital Signs (last 24 hours): Temp Pulse Resp BP Pulse Ox 98.0 F 77 20 105/66 96 10/25/18 07:00 10/25/18 07:00 10/25/18 07:00 10/25/18 07:00 10/25/18 07:00 - Medications Medications: Current Medications Divalproex Sodium (Depakote Dr) 250 mg PO BID [facility] Last Admin: 10/25/18 09:11 Dose: 250 mg Enoxaparin Sodium (Lovenox) 40 mg SC DAILY [facility] Last Admin: 10/25/18 09:11 Dose: 40 mg Hydroxyzine HCl (Atarax) 25 mg PO Q6 PRN PRN Reason: Agitation Insulin Human Regular (Novolin R) 0 unit SC [facility]; Protocol Last Admin: 10/25/18 08:02 Dose: Not Given Lisinopril (Zestril) 20 mg PO DAILY [facility] Last Admin: 10/25/18 09:12 Dose: Not Given Metformin HCl (Glucophage) 1,000 mg PO BIDCC [facility] Last Admin: 10/25/18 09:11 Dose: 1,000 mg Olanzapine (Zyprexa) 10 mg PO HS [facility] Last Admin: 10/24/18 21:26 Dose: 10 mg Pantoprazole Sodium (Protonix Ec Tab) 40 mg PO DAILY [facility] Last Admin: 10/25/18 09:11 Dose: 40 mg - Labs Labs: 10/21/18 08:38 10/21/18 08:38 Assessment and Plan (1) Change in mental state Status: Acute (2) Diabetes Status: Chronic
[2018-10-26] MEDS: (Novolin R) Insulin Human Regular 100 units/ml vial SC SCH ×4 (07:14→22:20)
[2018-10-26] MEDS: Divalproex 250 mg DR Tab PO SCH ×2 (09:08→18:50)
[2018-10-26] MEDS: Enoxaparin 40 mg Syringe SC SCH (09:08)
[2018-10-26] MEDS: Pantoprazole 40 mg EC Tab PO SCH (09:08)
--- NOTE | 2018-10-26 11:14 | CP.PCM.PN ---
Subjective - Date & Time of Evaluation Date of Evaluation: 10/26/18 Time of Evaluation: 11:13 - Subjective Subjective: patient has periods of confusion. Vital signs are stable Physical examination unchanged Continue monitoring blood pressure and sugar and psych evaluation Ref to [facility] psych Objective - Vital Signs/Intake and Output Vital Signs (last 24 hours): Temp Pulse Resp BP Pulse Ox 97.8 F 69 18 98/58 L 98 10/26/18 08:04 10/26/18 08:04 10/26/18 08:04 10/26/18 10:50 10/26/18 08:04 Intake and Output: 10/25/18 10/26/18 23:59 11:59 Intake Total 1550 Balance 1550 - Medications Medications: Current Medications Divalproex Sodium (Depakote Dr) 250 mg PO BID [facility] Last Admin: 10/26/18 09:08 Dose: 250 mg Enoxaparin Sodium (Lovenox) 40 mg SC DAILY [facility] Last Admin: 10/26/18 09:08 Dose: 40 mg Hydroxyzine HCl (Atarax) 25 mg PO Q6 PRN PRN Reason: Agitation Insulin Human Regular (Novolin R) 0 unit SC [facility]; Protocol Last Admin: 10/26/18 07:14 Dose: Not Given Lisinopril (Zestril) 20 mg PO DAILY [facility] Last Admin: 10/26/18 10:56 Dose: Not Given [facility] Last Admin: 10/26/18 09:08 Dose: 1,000 mg Olanzapine (Zyprexa) 10 mg PO [facility] Last Admin: 10/25/18 21:48 Dose: 10 mg Pantoprazole Sodium (Protonix Ec Tab) 40 mg PO DAILY [facility] Last Admin: 10/26/18 09:08 Dose: 40 mg - Labs Labs: 10/21/18 08:38 10/21/18 08:38 Assessment and Plan (1) Change in mental state Status: Acute (2) Diabetes Status: Chronic
--- NOTE | 2018-10-26 13:01 | CP.PCM.PN ---
Subjective - Date & Time of Evaluation Date of Evaluation: 10/26/18 Time of Evaluation: 12:58 - Subjective Subjective: PATIENT SEEN AND EVALUATE AT THE BEDSIDE PATIENT WAS ADMITTED FOR AMS/ DEHYDRATION AND UNCONTROLLED HYPERTENSION VITAL SIGN STABLE / LABS WNL PATIENT IS MEDICALLY CLEAR PATIENT HAD PSYCH EVALUATION DONE DURING THIS ADMISSION Objective - Vital Signs/Intake and Output Vital Signs (last 24 hours): Temp Pulse Resp BP Pulse Ox 97.8 F 69 18 98/58 L 98 10/26/18 08:04 10/26/18 08:04 10/26/18 08:04 10/26/18 10:50 10/26/18 08:04 Intake and Output: 10/26/18 10/26/18 06:59 18:59 Intake Total 750 Balance 750 - Medications Medications: Current Medications Divalproex Sodium (Depakote Dr) 250 mg PO BID [facility] Last Admin: 10/26/18 09:08 Dose: 250 mg Enoxaparin Sodium (Lovenox) 40 mg SC DAILY [facility] Last Admin: 10/26/18 09:08 Dose: 40 mg Hydroxyzine HCl (Atarax) 25 mg PO Q6 PRN PRN Reason: Agitation Insulin Human Regular (Novolin R) 0 unit SC [facility]; Protocol Last Admin: 10/26/18 07:14 Dose: Not Given Lisinopril (Zestril) 20 mg PO DAILY [facility] Last Admin: 10/26/18 10:56 Dose: Not Given [facility] Last Admin: 10/26/18 09:08 Dose: 1,000 mg Olanzapine (Zyprexa) 10 mg PO HS [facility] Last Admin: 10/25/18 21:48 Dose: 10 mg Pantoprazole Sodium (Protonix Ec Tab) 40 mg PO DAILY [facility] Last Admin: 10/26/18 09:08 Dose: 40 mg - Labs Labs: 10/21/18 08:38 10/21/18 08:38
[2018-10-27] MEDS: (Novolin R) Insulin Human Regular 100 units/ml vial SC SCH ×4 (07:16→22:06)
[2018-10-27] MEDS: Pantoprazole 40 mg EC Tab PO SCH (09:46)
[2018-10-27] MEDS: Divalproex 250 mg DR Tab PO SCH ×2 (09:46→18:33)
[2018-10-27] MEDS: Enoxaparin 40 mg Syringe SC SCH (09:46)
[2018-10-27 09:59] VITALS: RESP 20
[2018-10-27] MEDS ORDERED: Influenza Vaccine 60 mcg/0.5 mL SYR (4YR UP) IM ONE (10:00)
--- NOTE | 2018-10-27 13:03 | CP.PCM.PN ---
Subjective - Date & Time of Evaluation Date of Evaluation: 10/27/18 Time of Evaluation: 13:03 - Subjective Subjective: patient has periods of confusion. Vital signs are stable Physical examination unchanged Continue monitoring blood pressure and sugar and psych evaluation Ref to [facility] psych Objective - Vital Signs/Intake and Output Vital Signs (last 24 hours): Temp Pulse Resp BP Pulse Ox 97.5 F L 78 20 134/81 97 10/27/18 09:00 10/27/18 09:00 10/27/18 09:00 10/27/18 09:00 10/27/18 09:00 Intake and Output: 10/27/18 10/27/18 11:59 23:59 Intake Total 0 Balance 0 - Medications Medications: Current Medications Divalproex Sodium (Depakote Dr) 250 mg PO BID [facility] Last Admin: 10/27/18 09:46 Dose: 250 mg Enoxaparin Sodium (Lovenox) 40 mg SC DAILY [facility] Last Admin: 10/27/18 09:46 Dose: 40 mg Hydroxyzine HCl (Atarax) 25 mg PO Q6 PRN PRN Reason: Agitation Insulin Human Regular (Novolin R) 0 unit SC [facility]; Protocol Last Admin: 10/27/18 07:16 Dose: Not Given Lisinopril (Zestril) 20 mg PO DAILY [facility] Last Admin: 10/27/18 09:57 Dose: 20 mg [facility] Last Admin: 10/27/18 09:24 Dose: 1,000 mg Olanzapine (Zyprexa) 10 mg PO HS [facility] Last Admin: 10/26/18 22:22 Dose: 10 mg Pantoprazole Sodium (Protonix Ec Tab) 40 mg PO DAILY [facility] Last Admin: 10/27/18 09:46 Dose: 40 mg - Labs Labs: 10/21/18 08:38 10/21/18 08:38 Assessment and Plan (1) Change in mental state Status: Acute (2) Diabetes Status: Chronic
--- NOTE | 2018-10-27 16:22 | CARD ---
APPROVED REPORT Date of service: 10/18/2018 EKG Measurement Heart [id number] <Conclusion> Normal sinus rhythm Nonspecific ST abnormality Abnormal ECG
[2018-10-28] MEDS: (Novolin R) Insulin Human Regular 100 units/ml vial SC SCH ×4 (08:58→22:00)
[2018-10-28] MEDS: Divalproex 250 mg DR Tab PO SCH ×2 (09:41→17:41)
[2018-10-28] MEDS: Enoxaparin 40 mg Syringe SC SCH (09:42)
[2018-10-28] MEDS: Pantoprazole 40 mg EC Tab PO SCH (09:42)
--- NOTE | 2018-10-28 12:07 | CP.PCM.PN ---
Subjective - Date & Time of Evaluation Date of Evaluation: 10/28/18 Time of Evaluation: 12:07 - Subjective Subjective: patient has periods of confusion. Vital signs are stable Physical examination unchanged Continue monitoring blood pressure and sugar and psych evaluation Ref to [facility] psych Objective - Vital Signs/Intake and Output Vital Signs (last 24 hours): Temp Pulse Resp BP Pulse Ox 97.6 F 100 H 20 131/84 98 10/28/18 08:07 10/28/18 08:07 10/28/18 08:07 10/28/18 08:07 10/27/18 23:33 - Medications Medications: Current Medications Divalproex Sodium (Depakote Dr) 250 mg PO BID [facility] Last Admin: 10/28/18 09:41 Dose: 250 mg Enoxaparin Sodium (Lovenox) 40 mg SC DAILY [facility] Last Admin: 10/28/18 09:42 Dose: 40 mg Hydroxyzine HCl (Atarax) 25 mg PO Q6 PRN PRN Reason: Agitation Insulin Human Regular (Novolin R) 0 unit SC [facility]; Protocol Last Admin: 10/28/18 08:58 Dose: Not Given Lisinopril (Zestril) 20 mg PO DAILY [facility] Last Admin: 10/28/18 09:42 Dose: 20 mg Metformin HCl (Glucophage) 1,000 mg PO BIDCC [facility] Last Admin: 10/28/18 09:42 Dose: 1,000 mg Olanzapine (Zyprexa) 10 mg PO HS [facility] Last Admin: 10/27/18 22:09 Dose: 10 mg Pantoprazole Sodium (Protonix Ec Tab) 40 mg PO DAILY [facility] Last Admin: 10/28/18 09:42 Dose: 40 mg - Labs Labs: 10/21/18 08:38 10/21/18 08:38 Assessment and Plan (1) Change in mental state Status: Acute (2) Diabetes Status: Chronic
[2018-10-29] MEDS: (Novolin R) Insulin Human Regular 100 units/ml vial SC SCH ×3 (07:33→17:20)
[2018-10-29 08:17] LABS: BASO % 0.4 % (0.0-2.0); EOS # 0.2 K/uL (0.0-0.7); EOS % 1.9 % (0.0-4.0); LYMPH # 2.7 K/uL (1.0-4.3); LYMPH % 30.2 % (20.0-40.0); MEAN CELL VOLUME 87.7 fL (80.0-94.0); MEAN CORPUSCULAR HEMOGLOBIN 29.9 pg (27.0-31.0); MEAN CORPUSCULAR HGB CONC 34.1 g/dL (33.0-37.0); MEAN PLATELET VOLUME 9.2 fL (7.2-11.7); MONO # 0.7 K/uL (0.0-0.8); MONO % 7.7 % (0.0-10.0); NEUT # 5.3 K/uL (1.8-7.0); NEUT % 59.8 % (50.0-75.0); NRBC % 0.1 % (0.0-2.0); RBC 4.7 Mil/uL (4.40-5.90); RED CELL DISTRIBUTION WIDTH 14.3 % (11.5-14.5); WHITE BLOOD COUNT 8.8 K/uL (4.8-10.8)
[2018-10-29 08:24] LABS: ALB/GLOB RATIO 1.4 (1.0-2.1); ALBUMIN 4.1 g/dL (3.5-5.0); ALT/SGPT 60 U/L (21-72); AST/SGOT 44 U/L (17-59); BLOOD UREA NITROGEN 34 mg/dL (9-20); CALCIUM 9.4 mg/dl (8.6-10.4); GFR NON-AFRICAN AMERICAN > 60
[2018-10-29] MEDS: Pantoprazole 40 mg EC Tab PO SCH (09:40)
[2018-10-29] MEDS: Enoxaparin 40 mg Syringe SC SCH (09:40)
[2018-10-29] MEDS: Divalproex 250 mg DR Tab PO SCH ×2 (09:40→18:08)
--- NOTE | 2018-10-29 11:45 | CP.PCM.PN ---
Subjective - Date & Time of Evaluation Date of Evaluation: 10/29/18 Time of Evaluation: 11:45 - Subjective Subjective: patient has periods of confusion. Vital signs are stable Physical examination unchanged Continue monitoring blood pressure and sugar and psych evaluation Ref to [facility] psych Objective - Vital Signs/Intake and Output Vital Signs (last 24 hours): Temp Pulse Resp BP Pulse Ox 98 F 90 20 117/71 96 10/28/18 16:00 10/28/18 16:00 10/28/18 16:00 10/28/18 16:00 10/28/18 16:00 - Medications Medications: Current Medications Divalproex Sodium (Depakote Dr) 250 mg PO BID [facility] Last Admin: 10/29/18 09:40 Dose: 250 mg Enoxaparin Sodium (Lovenox) 40 mg SC DAILY [facility] Last Admin: 10/29/18 09:40 Dose: 40 mg Hydroxyzine HCl (Atarax) 25 mg PO Q6 PRN PRN Reason: Agitation Insulin Human Regular (Novolin R) 0 unit SC [facility]; Protocol Last Admin: 10/29/18 07:33 Dose: Not Given Lisinopril (Zestril) 20 mg PO DAILY [facility] Last Admin: 10/29/18 09:40 Dose: 20 mg Metformin HCl (Glucophage) 1,000 mg PO BIDCC [facility] Last Admin: 10/29/18 08:25 Dose: 1,000 mg Olanzapine (Zyprexa) 10 mg PO HS [facility] Last Admin: 10/28/18 21:35 Dose: 10 mg Pantoprazole Sodium (Protonix Ec Tab) 40 mg PO DAILY [facility] Last Admin: 10/29/18 09:40 Dose: 40 mg - Labs Labs: 10/29/18 08:04 10/29/18 08:04 Assessment and Plan (1) Change in mental state Status: Acute (2) Diabetes Status: Chronic
--- NOTE | 2018-10-29 15:03 | PCM.PYCHPN ---
Psychiatric Progress Note - Psychiatric Progress Note Patient seen today, length of contact: 15 min Medication Change: Yes Medical Record Reviewed: Yes Mental Status Examination - Cognitive Function Orientation: Person, Place, Situation, Time Attention: WNL Concentration: Poor Association: Loose Fund of Knowledge: Poor - Mood Mood: Depressed, Anxious - Affect Affect: Constricted, Depressed - Formal Thought Process Formal Thought Process: Hallucinations, Delusions, Paranoia, Loosening of associations, Flight of ideas - Suicidal Ideation Suicidal Ideation: No - Homicidal Ideation Homicidal Ideation: No Goal/Treatment Plan - Goal/Treatment Plan Need for Continued Stay: Remain at risks for inpatient hospitalization Progress Toward Problem(s) and Goals/Treatment Plan: Olanzapine for psychosis Depakote as a mood stabilizer Hydroxyzine for anxiety Trazodone for insomnia
[2018-10-29 16:17] VITALS: BP 98/65; PULSE 83; TEMP 99.3; O2SAT 96
--- NOTE | 2018-10-30 11:39 | CP.PCM.DIS ---
Provider - Provider Date of Admission: 10/18/18 17:40 Attending physician: Catrina Jennings MD Consults: 10/18/18 17:43 Real Time Analyst [Case Management Referral] Routine Comment: NOTED FROM SISTER, PT NEEDS NH PLACEMENT Physician Instructions: Reason For Exam: Reason for Referral: Discharge Planning 10/19/18 12:29 Psychiatry Consult Routine Comment: Consulting Provider: Drake Martinez Consulting Physician: Drake Martinez Reason for Consult: dx amx pt has psych history Time Spent in preparation of Discharge (in minutes): 35 Diagnosis - Discharge Diagnosis (1) Change in mental state Status: Acute (2) Diabetes Status: Chronic Hospital Course - Lab Results Lab Results: Micro Results 10/18/18 16:10 Urine Random Urine Culture - Final No Growth (<1,000 CFU/ML) Most Recent Lab Values WBC 8.8 K/uL (4.8-10.8) 10/29/18 08:04 RBC 4.70 Mil/uL (4.40-5.90) 10/29/18 08:04 Hgb 14.0 g/dL (12.0-18.0) 10/29/18 08:04 Hct 41.2 % (35.0-51.0) 10/29/18 08:04 MCV 87.7 fL (80.0-94.0) 10/29/18 08:04 MCH 29.9 pg (27.0-31.0) 10/29/18 08:04 MCHC 34.1 g/dL (33.0-37.0) 10/29/18 08:04 RDW 14.3 % (11.5-14.5) 10/29/18 08:04 Plt Count 161 K/uL (130-400) 10/29/18 08:04 MPV 9.2 fL (7.2-11.7) 10/29/18 08:04 Neut % (Auto) 59.8 % (50.0-75.0) 10/29/18 08:04 Lymph % (Auto) 30.2 % (20.0-40.0) 10/29/18 08:04 [place] % (Auto) 7.7 % (0.0-10.0) 10/29/18 08:04 Eos % (Auto) 1.9 % (0.0-4.0) 10/29/18 08:04 Baso % (Auto) 0.4 % (0.0-2.0) 10/29/18 08:04 Neut # (Auto) 5.3 K/uL (1.8-7.0) 10/29/18 08:04 Lymph # (Auto) 2.7 K/uL (1.0-4.3) 10/29/18 08:04 [place] # (Auto) 0.7 K/uL (0.0-0.8) 10/29/18 08:04 Eos # (Auto) 0.2 K/uL (0.0-0.7) 10/29/18 08:04 Baso # (Auto) 0.0 K/uL (0.0-0.2) 10/29/18 08:04 Sodium 140 mmol/L (132-148) 10/29/18 08:04 Potassium 4.8 mmol/L (3.6-5.2) 10/29/18 08:04 Chloride 106 mmol/L (98-107) 10/29/18 08:04 Carbon Dioxide 24 mmol/L (22-30) 10/29/18 08:04 Anion Gap 14 (10-20) 10/29/18 08:04 BUN 34 mg/dL (9-20) H 10/29/18 08:04 Creatinine 0.9 mg/dL (0.8-1.5) 10/29/18 08:04 Est GFR ( Amer) > 60 10/29/18 08:04 Est GFR (Non-Af Amer) > 60 10/29/18 08:04 POC Glucose (mg/dL) 130 mg/dL (65-110) H 10/29/18 17:01 Random Glucose 125 mg/dL (75-110) H 10/29/18 08:04 Calcium 9.4 mg/dl (8.6-10.4) 10/29/18 08:04 Total Bilirubin 0.6 mg/dL (0.2-1.3) 10/29/18 08:04 AST 44 U/L (17-59) 10/29/18 08:04 ALT 60 U/L (21-72) 10/29/18 08:04 Alkaline Phosphatase 180 U/L (38-126) H 10/29/18 08:04 Ammonia 9 umol/L (9-33) 10/18/18 14:17 Troponin I < 0.0120 ng/mL (0.00-0.120) 10/18/18 14:17 Total Protein 7.0 g/dL (6.3-8.3) 10/29/18 08:04 Albumin 4.1 g/dL (3.5-5.0) 10/29/18 08:04 Globulin 2.9 gm/dL (2.2-3.9) 10/29/18 08:04 Albumin/Globulin Ratio 1.4 (1.0-2.1) 10/29/18 08:04 Urine Color Yellow (YELLOW) 10/18/18 16:10 Urine Clarity Clear (Clear) 10/18/18 16:10 Urine pH 5.0 (5.0-8.0) 10/18/18 16:10 Ur Specific [place] 1.023 (1.003-1.030) 10/18/18 16:10 Urine Protein 1+ mg/dL (NEGATIVE) H 10/18/18 16:10 Urine Glucose (UA) Normal mg/dL (Normal) 10/18/18 16:10 Urine Ketones 1+ mg/dL (NEGATIVE) H 10/18/18 16:10 Urine Blood Negative (NEGATIVE) 10/18/18 16:10 Urine Nitrate Negative (NEGATIVE) 10/18/18 16:10 Urine Bilirubin Negative (NEGATIVE) 10/18/18 16:10 Urine Urobilinogen 4.0 mg/dL (0.2-1.0) 10/18/18 16:10 Ur Leukocyte Esterase Neg [place]/uL (Negative) 10/18/18 16:10 Urine WBC (Auto) 1 /hpf (0-5) 10/18/18 16:10 Urine RBC (Auto) 1 /hpf (0-3) 10/18/18 16:10 Ur Squamous Epith Cells < 1 /hpf (0-5) 10/18/18 16:10 Urine Opiates Screen Negative (NEGATIVE) 10/18/18 16:10 Urine Methadone Screen Negative (NEGATIVE) 10/18/18 16:10 Ur Barbiturates Screen Negative (NEGATIVE) 10/18/18 16:10 Ur Phencyclidine Scrn Negative (NEGATIVE) 10/18/18 16:10 Ur Amphetamines Screen Negative (NEGATIVE) 10/18/18 16:10 U Benzodiazepines Scrn Negative (NEGATIVE) 10/18/18 16:10 [place] < 0.2 mmol/L (0.6-1.2) L 10/18/18 15:12 U Oth Cocaine Metabols Negative (NEGATIVE) 10/18/18 16:10 U Cannabinoids Screen Negative (NEGATIVE) 10/18/18 16:10 Alcohol, Quantitative < 10 mg/dl (0-10) 10/18/18 14:17 - Hospital Course Hospital Course: 68 y/o male presents via EMS, brought in after he was found walking around without pants on today. Of note patient lives at home. Per sister via phone call, there is no family to care for patient. Patient has prior hx of psychiatric illness, was recently admitted to the [facility] unit at [place]. At present patient is ambulatory and is awake, alert, orientedx2. Pt arrives with no complaints PSYCH WAS CONSULTED AND PT WAS GIVEN MULTIPLE PSYCH. MEDS PT REMAINED STABLE MEDICALLY BUT STILL HAD ISSUES WITH MENTAL DISORDER PT WAS TRANSFERRED TO [facility]ERI[facility]IC PSYCH IN [place] Discharge Exam - Head Exam Head Exam: ATRAUMATIC, NORMAL INSPECTION, NORMOCEPHALIC Discharge Plan - Follow Up Plan Condition: STABLE Disposition: Trans to Other Acute Care Hosp Instructions: Type 2 Diabetes, High Blood Pressure (DC), Altered Mental Status (DC), Schizoaffective Disorder (DC) Additional Instructions: Discharge to [place] [facility] Referrals: Drake Martinez MD [Staff Provider] - Catrina Jennings MD [Staff Provider] -
== END 2018-10-29 20:57 | disposition short-term general hospital (02) | DRG 885 ==
LOC: C.ER 13:25 → C.9E 17:40 → C.5S 10-19 06:35 → C.9E 10-19 07:33 → C.5S 10-19 11:25
PROVIDERS: ADMIT Internal Medicine Cardiovascular Disease; ATTEND Internal Medicine Cardiovascular Disease
DX: F25.0 Schizoaffective disorder, bipolar type (principal); F41.9 Anxiety disorder, unspecified; E86.0 Dehydration; E11.65 Type 2 diabetes mellitus with hyperglycemia; G47.00 Insomnia, unspecified; I10 Essential (primary) hypertension; Z91.83 Wandering in diseases classified elsewhere; K21.9 Gastro-esophageal reflux disease without esophagitis